=== PATIENT | female | born 1940 | race Caucasian/White ===

== ENCOUNTER 2019-10-03 18:21 | Inpatient (IN) | payer MEDICARE, SELFPAY ==
[2019-10-03 18:37] VITALS: BP 162/96; PULSE 84; RESP 22; TEMP 36.5; O2SAT 99; BMI 23.3
--- NOTE | 2019-10-03 18:56 | XRR_ITS ---
PROCEDURE INFORMATION: Exam: XR Chest, 1 View Exam date and time: 10/03/2019 6:57 PM Age: 79 years old Clinical indication: Right-sided chest pain; Additional info: Admission TECHNIQUE: Imaging protocol: XR of the chest Views: 1 view. COMPARISON: No relevant prior studies available. FINDINGS: Increased interstitial markings are noted within the lung bases. There is no consolidation. There is no pleural effusion or pneumothorax. There is cardiomegaly. There is atherosclerotic change of the aorta. XR/XR chest 1V portable [id number] IMPRESSION: 1. Increased interstitial markings within the lung bases. 2. Mild cardiomegaly.
--- NOTE | 2019-10-03 18:56 | ECG_ITS ---
Measurements Intervals [place] Rate: 81 P: 79 RI: 146 QRS: 13 QRSD: 86 T: 73 QT: 379 QTc: 442 SINUS RHYTHM No previous ECG available for comparison Electronically Signed On 10-04-2019 11:27:43 AERIAL INSTALLER by Tesfaye Morse M.D. [email or web address]
--- NOTE | 2019-10-03 19:04 | USR_ITS ---
PROCEDURE INFORMATION: Exam: US Abdomen Limited, Right Upper Quadrant Exam date and time: 10/03/2019 7:45 PM Age: 79 years old Clinical indication: Abdominal pain; Acute TECHNIQUE: Imaging protocol: Real-time ultrasound of the abdomen with image documentation. Examination was focused on the right upper quadrant. COMPARISON: No relevant prior studies available. FINDINGS: Real-time sonography of the right upper quadrant was performed. The pancreas appears normal. The liver is homogeneous in echotexture. There is no liver mass. There is no intrahepatic biliary dilatation. There is hepatopedal flow within the portal vein. The common bile duct measured 3 mm. No gallstones are seen within the gallbladder. There is no thickening of the gallbladder wall. There is no pericholecystic fluid. The patient was not tender over the gallbladder. Right kidney appeared normal. No free fluid is identified. US/US abdomen limited [id number] IMPRESSION: Unremarkable right upper quadrant ultrasound.
--- NOTE | 2019-10-03 19:13 | ED_ITS ---
Documented by User: ESTELLA Black 10/03/19 21:17 HPI - General Adult General: Chief complaint: Abdominal Pain Stated complaint: abd pain Time Seen by Provider: 10/03/19 18:56 History of Present Illness: HPI narrative: Patient complains but nausea all day long with some abdominal pain the last hour or 2 abdominal pains worsen. Planes about pain in lower left and right abdomen. MD complaint: abdominal pain Onset (ago): day(s) Location: abdomen Radiation: non-radiation Severity: severe Severity scale (1-10): 10 Quality: sharp Pain Consistency: constant Relieving factors: none Associated symptoms: Reports nausea and vomiting; Deny chest pain, dyspnea, headache(s) or rash Review of Systems Const: Denies: fever, chills or body aches Eyes: Denies: change in vision or blurry vision ENMT: Reports: throat pain; Denies: nasal congestion Card: Denies: chest pain or shortness of breath on exertion Resp: Denies: shortness of breath, productive cough or non-productive cough GI: Reports: abdominal pain, nausea and vomiting Musc: Denies: extremity pain Skin/Breast: Denies: rash Neuro: Denies: headache Psych: Denies: anxiety or depression Guru/Lymph: Denies: easy bruising PFSH ED PFSH: Statuses (acute, chronic, etc) shown below reflect problem list status as previously entered and may not be historically accurate Social History Smoking and tobacco status: never smoked Physical Exam Const: COMMON NORMALS: average body habitus and oriented x3 GENERAL APPEARANCE: in distress HENMT: COMMON NORMALS: normocephalic HEAD & SCALP: normal to inspection and normocephalic FACE & SINUS: normal facial exam Eye: COMMON NORMALS: conjunctivae normal GENERAL EYE: normal appearance of both eyes CONJUNCTIVA: Yes conjunctivae normal Neck/C-Spine: COMMON NORMALS: no JVD Chest: COMMONS NORMALS: inspection of chest normal Resp: COMMON NORMALS: normal respiratory effort and clear to auscultation bilaterally AUSCULTATION: clear to auscultation bilaterally Cardio: COMMON NORMALS: no JVD, regular rate and regular rhythm RATE: re gular rate RHYTHM: regular rhythm GI: COMMON NORMALS: normal to inspection, nondistended, normoactive bowel sounds AUSCULTATION: Yes hypoactive bowel sounds PALPATION: Yes tender Details: LLQ and RLQ PERCUSSION: normal to percussion Extremity: COMMON NORMALS: normal to inspection and full ROM Neuro: COMMON NORMALS: oriented x3 Course Vital Signs: Vital signs: Vital Signs Temperature 97.7 F 10/03/19 18:37 Pulse Rate 84 10/03/19 18:37 Respiratory Rate 18 10/03/19 20:12 Blood Pressure 162/96 10/03/19 18:37 Pulse Oximetry 96 10/03/19 20:12 MDM - General Adult MDM Narrative: Medical decision making narrative: I spoke with Dr. Mortensen who will accept patient to place admission orders and speak to the hospitalist CAT scan reviewed Lab Data: Labs: Lab Results 10/03/19 10/03/19 10/03/19 Range/Units 19:09 19:09 19:09 WBC 5.2 (4.0-10.0) 10^3/ uL RBC 4.56 (4.1-5.3) 10^6/u L Hgb 11.8 (11.5-15.3) g/dL Hct 38.5 (37.0-47.0) % MCV 84.4 (81-99) fL MCH 25.9 L (28.0-34.0) pg MCHC 30.6 (30.0-36.0) g/dL RDW 14.4 (12.1-15.1) % Plt Count 306 (130-400) 10^3/c mm MPV 9.4 (7.4-10.4) fL Neut % (Auto) 62.6 % Lymph % (Auto) 28.6 % Haskell % (Auto) 7.6 % Eos % (Auto) 0.6 % Baso % (Auto) 0.4 % Neut # (Auto) 3.3 (1.8-7.7) 10^3/u L Lymph # (Auto) 1.5 (0.8-4.8) 10^3/u L Haskell # (Auto) 0.4 (0.2-0.9) 10^3/u L Eos # (Auto) 0.0 (0.0-0.8) 10^3/u L Baso # (Auto) 0.0 (0.0-0.1) 10^3/u L Nucleated RBC % (a uto) 0 % Nucleated RBCs # 0.0 /100WBC Sodium 127 L (136-145) mmol/L Potassium 4.2 (3.5-5.1) mmol/L Chloride 90 L (98-107) mmol/L Carbon Dioxide 20 L (22-29) mmol/L Anion Gap 21.2 H (5-19) BUN 12 (8-23) mg/dL Creatinine 0.7 (0.5-0.9) mg/dL Glucose 165 H (74-106) mg/dL Lactic Acid 3.5 H (0.5-2.2) mmol/L Calcium 9.9 (8.8-10.2) mg/Dl Total Bilirubin 0.3 (0.15-1.2) mg/dL AST 24 (0-32) U/L ALT 13 (0-33) U/L Alkaline Phosphata se 65 (35-105) IU/L Total Protein 7.6 (6.6-8.7) g/dL Albumin 4.0 (3.5-5.2) g/dL Globulin 3.6 (1.3-4.6) g/dL Lipase 46 (13-60) U/L Urine Color (Yellow) Urine Appearance (CLEAR) Urine pH (5-7) Ur Specific Gravit y (1.005-1.030) Urine Protein (Negative) Urine Glucose (UA) (Normal) Urine Ketones (Negative) Urine Occult Blood (Negative) Urine Nitrate (Negative) Urine Bilirubin (NEGATIVE) Prot Sulfosalicyli c Acd Urine Urobilinogen (Negative) mg/dL Ur Leukocyte Heather ase (Negative) 10/03/19 Range/Units 20:49 WBC (4.0-10.0) 10^3/ uL RBC (4.1-5.3) 10^6/u L Hgb (11.5-15.3) g/dL Hct (37.0-47.0) % MCV (81-99) fL MCH (28.0-34.0) pg MCHC (30.0-36.0) g/dL RDW (12.1-15.1) % Plt Count (130-400) 10^3/c mm MPV (7.4-10.4) fL Neut % (Auto) % Lymph % (Auto) % Haskell % (Auto) % Eos % (Auto) % Baso % (Auto) % Neut # (Auto) (1.8-7.7) 10^3/u L Lymph # (Auto) (0.8-4.8) 10^3/u L Haskell # (Auto) (0.2-0.9) 10^3/u L Eos # (Auto) (0.0-0.8) 10^3/u L Baso # (Auto) (0.0-0.1) 10^3/u L Nucleated RBC % (a uto) % Nucleated RBCs # /100WBC Sodium (136-145) mmol/L Potassium (3.5-5.1) mmol/L Chloride (98-107) mmol/L Carbon Dioxide (22-29) mmol/L Anion Gap (5-19) BUN (8-23) mg/dL Creatinine (0.5-0.9) mg/dL Glucose (74-106) mg/dL Lactic Acid (0.5-2.2) mmol/L Calcium (8.8-10.2) mg/Dl Total Bilirubin (0.15-1.2) mg/dL AST (0-32) U/L ALT (0-33) U/L Alkaline Phosphata se (35-105) IU/L Total Protein (6.6-8.7) g/dL Albumin (3.5-5.2) g/dL Globulin (1.3-4.6) g/dL Lipase (13-60) U/L Urine Color Straw (Yellow) Urine Appearance Clear (CLEAR) Urine pH 9 H (5-7) Ur Specific Gravit y 1.015 (1.005-1.030) Urine Protein Neg (Negative) Urine Glucose (UA) Norm (Normal) Urine Ketones Negative (Negative) Urine Occult Blood Neg (Negative) Urine Nitrate Negative (Negative) Urine Bilirubin Neg (NEGATIVE) Prot Sulfosalicyli c Acd Negative Urine Urobilinogen Norm (Negative) mg/dL Ur Leukocyte Heahter ase Negative (Negative) Discharge Plan Discharge Patient Disposition: Admitted As Inpatient Clinical Impression: Lactic acidosis, Enteritis, Acute hyponatremia Condition: Stable Referrals: Devan Craven MD [Primary Care Provider] - Discharge Diet: Clear Liquid Coding Level of Care Code ED Air Conditioning Coil Assembler for Chg Fwd Documented by User: Ann-Mariepeace Cates DO 10/03/19 21:58 HPI - General Adult General: Chief complaint: Abdominal Pain Stated complaint: abd pain Time Seen by Provider: 10/03/19 18:56 PFSH ED PFSH: Statuses (acute, chronic, etc) shown below reflect problem list status as previously entered and may not be historically accurate Social History Smoking and tobacco status: never smoked Course Vital Signs: Vital signs: Vital Signs Temperature 97.7 F 10/03/19 18:37 Pulse Rate 84 10/03/19 18:37 Respiratory Rate 18 10/03/19 20:12 Blood Pressure 162/96 10/03/19 18:37 Pulse Oximetry 96 10/03/19 20:12 MDM - General Adult MDM Narrative: Medical decision making narrative: patient will be admitted for lactic acidosis and enteritis and hyponatremia Lab Data: Attestation: I reviewed the patient's lab results. Labs: Lab Results 10/03/19 10/03/19 10/03/19 Range/Units 19:09 19:09 19:09 WBC 5.2 (4.0-10.0) 10^3/ uL RBC 4.56 (4.1-5.3) 10^6/u L Hgb 11.8 (11.5-15.3) g/dL Hct 38.5 (37.0-47.0) % MCV 84.4 (81-99) fL MCH 25.9 L (28.0-34.0) pg MCHC 30.6 (30.0-36.0) g/dL RDW 14.4 (12.1-15.1) % Plt Count 306 (130-400) 10^3/c mm MPV 9.4 (7.4-10.4) fL Neut % (Auto) 62.6 % Lymph % (Auto) 28.6 % Haskell % (Auto) 7.6 % Eos % (Auto) 0.6 % Baso % (Auto) 0.4 % Neut # (Auto) 3.3 (1.8-7.7) 10^3/u L Lymph # (Auto) 1.5 (0.8-4.8) 10^3/u L Haskell # (Auto) 0.4 (0.2-0.9) 10^3/u L Eos # (Auto) 0.0 (0.0-0.8) 10^3/u L Baso # (Auto) 0.0 (0.0-0.1) 10^3/u L Nucleated RBC % (a uto) 0 % Nucleated RBCs # 0.0 /100WBC Sodium 127 L (136-145) mmol/L Potassium 4.2 (3.5-5.1) mmol/L Chloride 90 L (98-107) mmol/L Carbon Dioxide 20 L (22-29) mmol/L Anion Gap 21.2 H (5-19) BUN 12 (8-23) mg/dL Creatinine 0.7 (0.5-0.9) mg/dL Glucose 165 H (74-106) mg/dL Lactic Acid 3.5 H (0.5-2.2) mmol/L Calcium 9.9 (8.8-10.2) mg/Dl Total Bilirubin 0.3 (0.15-1.2) mg/dL AST 24 (0-32) U/L ALT 13 (0-33) U/L Alkaline Phosphata se 65 (35-105) IU/L Total Protein 7.6 (6.6-8.7) g/dL Albumin 4.0 (3.5-5.2) g/dL Globulin 3.6 (1.3-4.6) g/dL Lipase 46 (13-60) U/L Urine Color (Yellow) Urine Appearance (CLEAR) Urine pH (5-7) Ur Specific Gravit y (1.005-1.030) Urine Protein (Negative) Urine Glucose (UA) (Normal) Urine Ketones (Negative) Urine Occult Blood (Negative) Urine Nitrate (Negative) Urine Bilirubin (NEGATIVE) Prot Sulfosalicyli c Acd Urine Urobilinogen (Negative) mg/dL Ur Leukocyte Heather ase (Negative) 10/03/19 Range/Units 20:49 WBC (4.0-10.0) 10^3/ uL RBC (4.1-5.3) 10^6/u L Hgb (11.5-15.3) g/dL Hct (37.0-47.0) % MCV (81-99) fL MCH (28.0-34.0) pg MCHC (30.0-36.0) g/dL RDW (12.1-15.1) % Plt Count (130-400) 10^3/c mm MPV (7.4-10.4) fL Neut % (Auto) % Lymph % (Auto) % Haskell % (Auto) % Eos % (Auto) % Baso % (Auto) % Neut # (Auto) (1.8-7.7) 10^3/u L Lymph # (Auto) (0.8-4.8) 10^3/u L Haskell # (Auto) (0.2-0.9) 10^3/u L Eos # (Auto) (0.0-0.8) 10^3/u L Baso # (Auto) (0.0-0.1) 10^3/u L Nucleated RBC % (a uto) % Nucleated RBCs # /100WBC Sodium (136-145) mmol/L Potassium (3.5-5.1) mmol/L Chloride (98-107) mmol/L Carbon Dioxide (22-29) mmol/L Anion Gap (5-19) BUN (8-23) mg/dL Creatinine (0.5-0.9) mg/dL Glucose (74-106) mg/dL Lactic Acid (0.5-2.2) mmol/L Calcium (8.8-10.2) mg/Dl Total Bilirubin (0.15-1.2) mg/dL AST (0-32) U/L ALT (0-33) U/L Alkaline Phosphata se (35-105) IU/L Total Protein (6.6-8.7) g/dL Albumin (3.5-5.2) g/dL Globulin (1.3-4.6) g/dL Lipase (13-60) U/L Urine Color Straw (Yellow) Urine Appearance Clear (CLEAR) Urine pH 9 H (5-7) Ur Specific Gravit y 1.015 (1.005-1.030) Urine Protein Neg (Negative) Urine Glucose (UA) Norm (Normal) Urine Ketones Negative (Negative) Urine Occult Blood Neg (Negative) Urine Nitrate Negative (Negative) Urine Bilirubin Neg (NEGATIVE) Prot Sulfosalicyli c Acd Negative Urine Urobilinogen Norm (Negative) mg/dL Ur Leukocyte Heather ase Negative (Negative) Discharge Plan Discharge Patient Disposition: Admitted As Inpatient Clinical Impression: Lactic acidosis, Enteritis, Acute hyponatremia Condition: Stable Referrals: Devan Craven MD [Primary Care Provider] - Discharge Diet: Clear Liquid Coding Level of Care Code ED Air Conditioning Coil Assembler for Chg Parvin
[2019-10-03 19:15] VITALS: RESP 18; O2SAT 100
[2019-10-03] MEDS: morphine 4 mg/mL SDV 1 mL 2 MG IVP ×2 (19:15→20:12)
[2019-10-03] MEDS: ondansetron 2 mg/ML SDV 2 mL 4 MG IVP ×2 (19:16→20:13)
[2019-10-03 19:22] LABS: Basophils % 0.4 %; Eosinophils % 0.6 %; Hematocrit 38.5 % (37.0-47.0); Hemoglobin 11.8 g/dL (11.5-15.3); Lymphocytes # 1.5 10^3/uL (0.8-4.8); Lymphocytes % 28.6 %; Mean Corpuscular HGB Conc 30.6 g/dL (30.0-36.0); Mean Corpuscular Hemoglobin 25.9 pg (28.0-34.0); Mean Corpuscular Volume 84.4 fL (81-99); Mean Platelet Volume 9.4 fL (7.4-10.4); Monocytes # 0.4 10^3/uL (0.2-0.9); Monocytes % 7.6 %; Neutrophils # 3.3 10^3/uL (1.8-7.7); Neutrophils % 62.6 %; Nucleated Red Blood Cells % 0 %; Platelet Count 306 10^3/cmm (130-400); Red Blood Count 4.56 10^6/uL (4.1-5.3); Red Cell Distribution Width 14.4 % (12.1-15.1); White Blood Count 5.2 10^3/uL (4.0-10.0)
[2019-10-03 19:36] LABS: Lactic Sepsis W/Reflex 3.5 mmol/L (0.5-2.2)
[2019-10-03 19:49] LABS: Alanine Aminotransferase 13 U/L (0-33); Alkaline Phosphatase 65 IU/L (35-105); Anion Gap 21.2 (5-19); Aspartate Amino Transferase 24 U/L (0-32); Blood Urea Nitrogen 12 mg/dL (8-23); Calcium 9.9 mg/Dl (8.8-10.2); Carbon Dioxide 20 mmol/L (22-29); Chloride 90 mmol/L (98-107); Globulin 3.6 g/dL (1.3-4.6); Glucose 165 mg/dL (74-106); Lipase 46 U/L (13-60); Potassium 4.2 mmol/L (3.5-5.1); Sodium 127 mmol/L (136-145); Total Bilirubin 0.3 mg/dL (0.15-1.2); Total Protein 7.6 g/dL (6.6-8.7)
--- NOTE | 2019-10-03 20:03 | CTR_ITS ---
PROCEDURE INFORMATION: Exam: CT Abdomen And Pelvis With Contrast Exam date and time: 10/03/2019 8:18 PM Age: 79 years old Clinical indication: Abdominal pain; Acute; Prior surgery; Surgery date: 6+ months; Surgery type: Hyst and bi-lat hips TECHNIQUE: Imaging protocol: Computed tomography of the abdomen and pelvis with intravenous contrast. Total DLP: 756.64 mGy-cm Radiation optimization: All CT scans at this facility use at least one of these dose optimization techniques: automated exposure control; mA and/or kV adjustment per patient size (includes targeted exams where dose is matched to clinical indication); or iterative reconstruction. Contrast material: OMNI 300; Contrast volume: 95 ml; Contrast route: IV; COMPARISON: US abdomen limited [id number] 10/03/2019 7:25 PM FINDINGS: There is scarring within the lung bases. There is mild cardiomegaly. There is scoliosis and degenerative changes of the spine. The patient is status post bilateral hip replacements causing significant streak artifact within pelvis. There is a small cyst within the right lobe of the liver. It measures 9 mm. There is no suspicious liver mass. There is no intrahepatic biliary dilatation. No gallstones are seen within the gallbladder. The pancreas is unremarkable. The spleen is unremarkable. There is no adrenal mass. Tiny subcentimeter cysts are seen within kidneys. No renal calculi or hydronephrosis is seen. The aorta is normal in caliber. The IVC is normal in caliber. There is no retroperitoneal adenopathy. There is no mesenteric adenopathy. There is a hiatal hernia. There is no gastric wall thickening. The proximal small bowel appears normal. There is small bowel distention involving the terminal ileum with some wall thickening and some mild stranding of the fat. Findings would suggest an enteritis versus a mild partial small bowel obstruction. No definite transition zone is seen. There does appear to be extensive feces involving the cecum. The remainder of the colonic structures demonstrate some scattered diverticuli. Within the pelvis: The appendix is not visualized. The bladder is obscured by artifact. The patient is status post hysterectomy. There are no adnexal masses. There is no free fluid within the pelvis. There is no inguinal adenopathy. There is no pelvic adenopathy. There is sigmoid diverticulosis. CT/CT abdomen pelvis w con* [id number] IMPRESSION: 1. Distal small bowel distention with fluid and some mild wall thickening and stranding of the mesenteric fat. This may represent an enteritis. It could represent a partial small bowel obstruction. Please note the appendix is not visualized. 2. There is noted to be extensive feces within the cecum. 3. Other incidental findings as described. Radiation Dose CTDIVOL = (mGy): DLP = 756.64 (mGy-cm)
[2019-10-03 20:12] VITALS: RESP 18; O2SAT 96
[2019-10-03] MEDS: iohexol 300 mg/mL 100 mL Btl IV (20:31)
[2019-10-03 20:53] LABS: Add Urine Microscopic? NO
[2019-10-03 20:59] LABS: Reflex Lactate Order Y
[2019-10-03 21:04] LABS: Urine Appearance Clear (CLEAR); Urine Color Straw (Yellow)
[2019-10-03 21:05] LABS: Bilirubin Urine Neg (NEGATIVE); Blood Urine Neg (Negative); Glucose Urine UA Norm (Normal); Ketones Urine Negative (Negative); Leukocyte Esterase Urine Negative (Negative); Nitrate Urine Negative (Negative); Protein Urine Neg (Negative); Specific Gravity, Urine 1.015 (1.005-1.030); Sulfosalicylic Acid Urine Negative; Urobilinogen Urine Norm (Negative); pH Urine 9 (5-7)
[2019-10-03 22:24] VITALS: RESP 18; O2SAT 98
[2019-10-03] MEDS: HYDROmorphone 1 mg/mL INJ 1 mL IVP (22:24)
[2019-10-03 22:59] LABS: Lactic Acid level (Lactate) 1.8 mmol/L (0.5-2.2)
[2019-10-03] MEDS: sodium chloride 0.9% 1,000 ML 100 ML IV (22:59)
[2019-10-04] VITALS (10 sets, daily range): BP systolic 109–173; BP diastolic 58–100; PULSE 63–102; RESP 16–18; TEMP 36.7–37.2; O2SAT 94–100
--- NOTE | 2019-10-04 01:12 | P.HP_ITS ---
Providers/Chief Complaint Admitting Physician: Carmen Perrin MD Primary Care Provider: Devan Craven MD Chief Complaint: CONSTIPATION, ENTERITIS History of Present Illness Emerald Subramanian is a 79 year old female with PMHx of HTN, Hyperlipidemia; presents from home accompanied by family for evaluation of worsening abdominal pain, nausea for approximately 1 day. She describes it as worse in the upper abdominal area, cramping in quality, with some radiation upward toward the chest area and now seems to be more diffuse. She had a bowel movement earlier this morning which was normal for her, no blood noted. She has had nausea but no vomiting and a slightly diminished appetite. She states she has never had this kind of pain in the past. She lives independently but has family close by. She denies any recent exposure to any unusual food or drink, fever/chills, changes in her urination. She is quite uncomfortable during my evaluation in the ER, clutching at her upper abdominal area. Sister is at bedside. She is slightly hypertensive, rest of her vital signs are stable. Work-up in the ER indicates a normal CBC, sodium of 127, normal renal function, blood sugar of 165, lactic acidosis with a level of 3.5, negative urinalysis, normal lipase. Chest x-ray is reported as increased interstitial markings. Abdominal ultrasound is negative. CT of the abdomen and pelvis shows distal small bowel fluid distention and fecal retention within the cecum. I explained the findings to the patient including need for bowel rest, IV fluid hydration and antibiotic treatment which she is agreeable to. Due to need for adequate pain control, IV fluid hydration, bowel rest and antibiotic treatment she has been admitted for further care. Review of Systems Const: Reports: change in appetite (decreased appetite) and fatigue; Denies: fever or chills Eyes: Denies: change in vision ENMT: Reports: dry mouth Card: Denies: chest pain, swelling of feet/ankles or lightheadedness Resp: Denies: shortness of breath GI: Reports: abdominal pain (Upper abdominal area) and nausea; Denies: vomiting, vomiting blood, constipation, change in bowel habits or blood in stool : Denies: difficulty urinating, painful urination, urinary frequency or blood in urine Musc: Denies: back pain Skin/Breast: Denies: rash Neuro: Denies: numbness in extremities, weakness in extremities or frequent falls Psych: Denies: anxiety Medications/Allergies Allergies Allergy/AdvReac Type Severity Reaction Status Date / Time amoxicillin Allergy ALGY-Rash Verified 10/03/19 18:47 prednisone Allergy ADR-Diarrhe Verified 10/03/19 18:47 a Sulfa (Sulfonamide Allergy ALGY-Redness Verified 10/03/19 18:47 Antibiotics) of Skin Additional Medication Information Additional Medication Information: -pending med rec PFSH Acute PFSH: Statuses (acute, chronic, etc) shown below reflect problem list status as previously entered and may not be historically accurate Medical History (Updated 10/04/19 @ 03:23 by Carmen Perrin MD) Hyperlipidemia (Acute) Hypertension (Acute) Surgical History (Updated 10/04/19 @ 03:20 by Carmen Perrin MD) S/P hip replacement (Acute) bilateral Family History (Updated 10/04/19 @ 03:20 by Carmen Perrin MD) Other CAD (coronary artery disease) Social History (Updated 10/04/19 @ 03:20 by Carmen Perrin MD) Smoking and tobacco status: never smoked Alcohol intake: never Substance/Drug Use: never Lives independently: Yes Housing: House Vitals/I&O/Wt Last Vital Signs Temp 97.7 F 10/03/19 18:37 Pulse 84 10/03/19 18:37 Resp 18 10/03/19 22:24 BP 162/96 10/03/19 18:37 Pulse Ox 98 10/03/19 22:24 Weight last 48 hrs Weight 63.503 kg Physical Exam Const: COMMON NORMALS: no apparent distress and oriented x3 GENERAL APPEARANCE: cooperative, in distress (Mild distress due to pain) and frail appearing; not comfortable NUTRITIONAL APPEARANCE: thin ORIENTATION/CONSCIOUSNESS: Yes awake HENMT: COMMON NORMALS: normocephalic, head/scalp atraumatic and hearing grossly normal bilaterally HEAD & SCALP: normocephalic and atraumatic MOUTH: moist mucous membranes abnormal Details: parched Eye: COMMON NORMALS: PERRL, EOMs intact bilaterally and conjunctivae normal CONJUNCTIVA: Yes conjunctivae normal PUPIL: Yes PERRL Neck/C-Spine: COMMON NORMALS: full ROM GENERAL: Yes normal visual inspection and Yes trachea midline Resp: COMMON NORMALS: normal respiratory effort, no retractions, no use of accessory muscles and clear to auscultation bilaterally EFFORT & INSPECTION: Yes able to speak in complete sentences, Yes symmetric chest movement and No tachypneic AUSCULTATION: clear to auscultation bilaterally Cardio: COMMON NORMALS: regular rate, regular rhythm, S1 normal heart sound, S2 normal heart sound and no murmurs RATE: regular rate RHYTHM: regular rhythm HEART SOUNDS: S1 normal and S2 normal GI: COMMON NORMALS: normal to inspection, nondistended, normoactive bowel sounds and soft to palpation PALPATION: Yes soft, Yes tender (Diffuse, worse in right upper and left upper quadrants), No guarding, No rigid and No rebound tenderness present Extremity: COMMON NORMALS: normal to inspection, full ROM and no clubbing, cyanosis or edema; negative for no pedal edema Neuro: COMMON NORMALS: oriented x3, moves all extremities, no focal motor defi cits and no sensory deficits noted Psych: COMMON NORMALS: mental status grossly normal, thought process normal, cooperative, affect normal and speech normal SPEECH: Yes normal speech THOUGHT PROCESS: normal thought process Skin: COMMON NORMALS: no rashes or lesions noted, no jaundice, no petechiae and no mottling GENERAL SKIN EXAM: no rashes or lesions noted Data : 10/03/19 19:09 10/03/19 19:09 A&P Assessment and plan (1) Enteritis: -Noted evidence of enteritis on CT scan -Bowel rest, antiemetics and pain control as needed, IV fluid hydration -No leukocytosis, afebrile -Noted lactic acidosis likely secondary to dehydration; repeat lactic acid in a.m. Status: Acute Code(s): K52.9 - Noninfective gastroenteritis and colitis, unspecified (2) Lactic acidosis: -As noted above Status: Acute Code(s): E87.2 - Acidosis (3) Constipation: -Noted evidence of fecal retention in the cecum -Start on bowel regimen -Placed on bowel rest Status: Acute Qualifiers: Constipation type: other constipation type Qualified Code(s): K59.09 - Other constipation Code(s): K59.00 - Constipation, unspecified (4) Hypertension: -Monitor vital signs -Resume oral antihypertensives once med rec is done and PO appropriate Status: Acute Qualifiers: Hypertension type: essential hypertension Qualified Code(s): I10 - Essential (primary) hypertension Code(s): I10 - Essential (primary) hypertension (5) Hyperlipidemia: -Resume statin once p.o. appropriate Status: Acute Qualifiers: Hyperlipidemia type: unspecified Qualified Code(s): E78.5 - Hyperlipidemia, unspecified Code(s): E78.5 - Hyperlipidemia, unspecified Additional A&P Information -Advanced age -GI ppx with PPI -DVT ppx with Lovenox -fall precautions -Dispo: home -Code status: FULL code Attestations Medical Necessity Statement*: Emerald Subramanian's hospital stay will require greater than 2 midnights for management of enteritis and constipation, with evidence of dehydration and lactic acidosis requiring IV fluid hydration, bowel rest and IV antibiotics. Time Spent in Patient Care: Greater than 35 minutes (>than 50% of time spent in counselling and/or direct pt care on unit) . Coding Level of Care Code Acute Retail Selling Specialist for Chg Fwd Diagnoses Enteritis K52.9 Lactic acidosis E87.2 Constipation K59.09 Constipation type: other constipation type Hypertension I10 Hypertension type: essential hypertension Hyperlipidemia E78.5 Hyperlipidemia type: unspecified
[2019-10-04] MEDS: morphine 4 mg/mL SDV 1 mL 2 MG IVP ×2 (02:12→08:06)
[2019-10-04] MEDS: piperacillin-tazobactam 3.375 GM in sodium chloride 0.9% (plus) 50 ML IV ×2 (03:18→14:24)
[2019-10-04] MEDS: enoxaparin 40 mg/0.4 mL Syringe SUBCUT (03:18)
[2019-10-04] MEDS: magnesium citrate Btl 296 mL 150 ML PO (03:19)
[2019-10-04 06:14] LABS: Hematocrit 40.1 % (37.0-47.0); Hemoglobin 12.6 g/dL (11.5-15.3); Lymphocytes # 0.3 10^3/uL (0.8-4.8); Lymphocytes % 4.3 %; Mean Corpuscular HGB Conc 31.4 g/dL (30.0-36.0); Mean Corpuscular Hemoglobin 25.9 pg (28.0-34.0); Mean Corpuscular Volume 82.3 fL (81-99); Mean Platelet Volume 9.6 fL (7.4-10.4); Monocytes # 0.2 10^3/uL (0.2-0.9); Monocytes % 3.4 %; Nucleated Red Blood Cells % 0 %; Platelet Count 322 10^3/cmm (130-400); Red Blood Count 4.87 10^6/uL (4.1-5.3); Red Cell Distribution Width 14.3 % (12.1-15.1); White Blood Count 6.6 10^3/uL (4.0-10.0)
[2019-10-04 06:32] LABS: Anion Gap 16.8 (5-19); Blood Urea Nitrogen 12 mg/dL (8-23); Calcium 9.4 mg/Dl (8.8-10.2); Carbon Dioxide 25 mmol/L (22-29); Chloride 92 mmol/L (98-107); Glucose 206 mg/dL (74-106); Lactic Acid 1.9 mmol/L (0.5-2.2); Potassium 3.8 mmol/L (3.5-5.1); Sodium 130 mmol/L (136-145)
[2019-10-04] MEDS: pantoprazole 40 mg SDV IVP (08:06)
[2019-10-04] MEDS: sodium chloride 0.9% 1,000 ML 100 ML IV ×2 (08:11→18:02)
--- NOTE | 2019-10-04 09:00 | PC.NURSE ---
Pt resting in bed with eyes closed. Resp even and unlabored. 0 s/s of distress noted. Call light in reach
--- NOTE | 2019-10-04 14:22 | PC.NURSE ---
Dr Flores in to assess and discuss plan of care with patient and family
[2019-10-04] MEDS: lisinopril 20 mg Tablet PO (14:24)
[2019-10-04] MEDS: ondansetron 2 mg/ML SDV 2 mL 4 MG IVP (16:51)
--- NOTE | 2019-10-04 17:00 | PC.NURSE ---
Approx 60 ml of thick light brown/yellow emesis noted. Pt reports she just spit it up . PRN zofran given at this time
--- NOTE | 2019-10-04 17:01 | XRR_ITS ---
PROCEDURE INFORMATION: Exam: XR Abdomen, 1 View Exam date and time: 10/04/2019 7:39 PM Age: 79 years old Clinical indication: Other: Possible small bowel obstruction; Additional info: R/O sbo TECHNIQUE: Imaging protocol: XR of the abdomen. Views: Frontal supine view of the abdomen. 1 View. COMPARISON: None available FINDINGS: A large amount of stool is demonstrated. There is mild to moderate dilatation of colon. Cannot assess for free air on this supine view. Prominent arterial calcifications are demonstrated. Partly demonstrated is bilateral hip arthroplasty. XR/XR abdomen 1V* [id number] IMPRESSION: A large amount of stool is demonstrated. There is mild to moderate dilatation of colon.
--- NOTE | 2019-10-04 17:02 | PM.PN ---
Subjective Subjective: Interval history: Pain persisting but improved over yesterday. Patient does not currently passing any flatus. She has not had a bowel movement. She reports nausea but no vomiting. Abdominal appears to be distended over her baseline. Repeat lactate improved at 1.9. Medications: Reviewed: Yes Vitals/I&O/Wt Last Vital Signs Temp 98.2 F 10/04/19 14:55 Pulse 100 10/04/19 14:55 Resp 18 10/04/19 14:55 BP 167/82 10/04/19 14:55 Pulse Ox 97 10/04/19 14:55 10/04/19 10/04/19 10/04/19 06:59 14:59 22:59 Intake Total 50 / 50 Output Total 200 / 200 Balance -200 / -200 50 / 50 Weight last 48 hrs Weight 65.589 kg Weight 63.503 kg Physical Exam Narrative: EXAM NARRATIVE: GEN: Awake, alert and oriented, no acute distress CVS: S1S2 N RS: CTA B/L Abd: Soft, lower abdomen appears distended. Mild tenderness to palpation in the right lower quadrant. Bowel sounds not heard. INSTRUCTIONAL INTERVENTIONIST: no focal neuro deficits Data : 10/04/19 06:00 10/04/19 06:00 A&P Assessment and plan (1) Enteritis: -Noted evidence of enteritis on CT scan -Bowel rest, antiemetics and pain control as needed, IV fluid hydration -No leukocytosis, afebrile -Continue Zosyn empirically. -X-ray abdomen rule out SBO. Status: Acute Code(s): K52.9 - Noninfective gastroenteritis and colitis, unspecified (2) Lactic acidosis: Now resolved Status: Acute Code(s): E87.2 - Acidosis (3) Constipation: -Noted evidence of fecal retention in the cecum -Start on bowel regimen -Received enema overnight but has not had a bowel movement yet -If no evidence of SBO on x-ray abdomen today we will repeat another enema. Status: Acute Qualifiers: Constipation type: other constipation type Qualified Code(s): K59.09 - Other constipation Code(s): K59.00 - Constipation, unspecified (4) Hypertension: -Monitor vital signs -We will use metoprolol IV as needed for blood pressure control. Status: Acute Qualifiers: Hypertension type: essential hypertension Qualified Code(s): I10 - Essential (primary) hypertension Code(s): I10 - Essential (primary) hypertension (5) Hyperlipidemia: -Resume statin once p.o. appropriate Status: Acute Qualifiers: Hyperlipidemia type: unspecified Qualified Code(s): E78.5 - Hyperlipidemia, unspecified Code(s): E78.5 - Hyperlipidemia, unspecified Additional A&P Information -Advanced age -GI ppx with PPI -DVT ppx with Lovenox -fall precautions -Dispo: home -Code status: FULL code Attestations Medical Necessity Statement*: Admitted for enteritis acidosis, currently on management with bowel rest and antibiotics. Coding Level of Care Code Acute Classification Counselor for [facility] Fwd Diagnoses Enteritis K52.9 Lactic acidosis E87.2 Constipation K59.09 Constipation type: other constipation type Hypertension I10 Hypertension type: essential hypertension Hyperlipidemia E78.5 Hyperlipidemia type: unspecified
[2019-10-04 23:49] LABS: Rapid Strep A Test Negative (Negative)
[2019-10-05] MEDS: piperacillin-tazobactam 3.375 GM in sodium chloride 0.9% (plus) 50 ML IV ×3 (01:58→21:19)
[2019-10-05] MEDS: enoxaparin 40 mg/0.4 mL Syringe SUBCUT ×2 (01:58→21:20)
[2019-10-05 03:29] VITALS: BP 131/76; PULSE 98; RESP 18; TEMP 36.8; O2SAT 95
[2019-10-05] MEDS: sodium chloride 0.9% 1,000 ML 100 ML IV ×2 (03:37→18:41)
[2019-10-05 06:24] LABS: Basophils % 0.1 %; Hematocrit 38.2 % (37.0-47.0); Hemoglobin 11.7 g/dL (11.5-15.3); Lymphocytes # 0.4 10^3/uL (0.8-4.8); Lymphocytes % 3.6 %; Mean Corpuscular HGB Conc 30.6 g/dL (30.0-36.0); Mean Corpuscular Volume 84.9 fL (81-99); Mean Platelet Volume 10.1 fL (7.4-10.4); Monocytes # 0.7 10^3/uL (0.2-0.9); Monocytes % 6.5 %; Neutrophils # 9.2 10^3/uL (1.8-7.7); Neutrophils % 89.6 %; Nucleated Red Blood Cells % 0 %; Platelet Count 285 10^3/cmm (130-400); Red Cell Distribution Width 14.6 % (12.1-15.1); White Blood Count 10.3 10^3/uL (4.0-10.0)
[2019-10-05 06:47] LABS: Alanine Aminotransferase 10 U/L (0-33); Albumin Level 2.9 g/dL (3.5-5.2); Alkaline Phosphatase 47 IU/L (35-105); Aspartate Amino Transferase 20 U/L (0-32); Blood Urea Nitrogen 22 mg/dL (8-23); Calcium 8.9 mg/Dl (8.8-10.2); Carbon Dioxide 22 mmol/L (22-29); Chloride 98 mmol/L (98-107); Globulin 3.6 g/dL (1.3-4.6); Glucose 167 mg/dL (74-106); Sodium 133 mmol/L (136-145); Total Bilirubin 0.4 mg/dL (0.15-1.2); Total Protein 6.5 g/dL (6.6-8.7)
[2019-10-05 07:09] VITALS: BP 128/76; PULSE 72; RESP 18; TEMP 36.7
[2019-10-05] MEDS: lisinopril 20 mg Tablet PO (10:47)
[2019-10-05 10:51] VITALS: BP 156/75; PULSE 103; RESP 18; TEMP 36.7; O2SAT 96
[2019-10-05] MEDS: pantoprazole 40 mg SDV IVP (11:58)
--- NOTE | 2019-10-05 12:52 | PC.CHAP ---
Pastoral Care Encounter/Spiritual Assessment Type of Contact [] Declined sow farm barn technician visit [] Patient/Family/Request visit [] Outpatient visit [] Follow-up visit [] Physician referral [] Code/Alert [] Routine visit [] Staff referral [] Actively dying [] Patient sleeping [] Family support [] [] Out of room [] Palliative care [] [] Receiving care in room [] Pre-surgical visit [] Trauma [] Long length of stay [] ICU visit [] Other: Relational/Emotional Strength [x] Patient feels connected with others/family/visitors/staff [] Distress [] Loneliness/isolation [] Abandonment Spirituality of Patient [] Person of Marilyn [] Attends Gnosticism of their Marilyn [] Believes in Prayer [] Reads Bible or Confucianism materials [] There are Spiritual issues to be addressed Electrician Chief Interventions [x] Prayer [x] Active listening x[] Non-anxious presence [x] Spiritual/emotional support [] Crisis/trauma care [] Spiritual counseling [] Bereavement support [] Provided bereavement packet [] Provided Bible/devotional materials [] Provided toy/stuffed animal, coloring book to patient or family member [x] Completed spiritual assessment [] Provided Communion [] Anointing/[place] [] Salvation [] Other: Impact on Illness or Injury [] Angry [] Fearful [] Anxious [] Often cries [] Exhaustion [] Unable to work [] Unable to attend uatsdin [] Unable to walk/stand [] Unable to read [] Unable to drive [] Unable to eat/drink [] Unable to sleep [] Unable to be with family [x] Other: 2 family members present. Summary Time spent with patient
[2019-10-05 16:00] VITALS: BP 144/77; PULSE 109; RESP 18; TEMP 36.9; O2SAT 92
--- NOTE | 2019-10-05 16:07 | PM.PN ---
Subjective Subjective: Interval history: Patient had 2-3 episodes of small bowel movements yesterday. These are described as being semisolid. Large amount of stool was noted on the abdominal x-ray yesterday. There was mild to moderate dilatation of the colon. Patient reports abdominal pain is improving however there still continues to be some soreness in her lower abdomen. Medications: Reviewed: Yes Vitals/I&O/Wt Last Vital Signs Temp 98.0 F 10/05/19 10:51 Pulse 103 H 10/05/19 10:51 Resp 18 10/05/19 10:51 BP 156/75 10/05/19 10:51 Pulse Ox 96 10/05/19 10:51 10/05/19 10/05/19 10/05/19 06:59 14:59 22:59 Intake Total 803.333 / 2038.333 360 / 360 Output Total 0 / 0 Balance 803.333 / 2038.333 360 / 360 Weight last 48 hrs Weight 65.572 kg Weight 65.589 kg Weight 63.503 kg Physical Exam Narrative: EXAM NARRATIVE: GEN: Awake, alert and oriented, no acute distress CVS: S1S2 N RS: CTA B/L Abd: Soft, lower abdomen appears distended. Mild tenderness to palpation in the right lower quadrant. Bowel sounds not heard. CLOCK AND WATCH HANDS DIPPER: no focal neuro deficits Data : 10/05/19 02:17 10/05/19 02:17 A&P Assessment and plan (1) Enteritis: -Noted evidence of enteritis on CT scan -Patient had bowel movement yesterday. Now had 2-3 small BMs. Started on clears this morning. Which she is tolerating well. If continues to move her bowels, will try to advance diet as tolerated. - antiemetics and pain control as needed, IV fluid hydration -No leukocytosis, afebrile -Continue Zosyn empirically. -Still with a large amount of stool. We will order additional enema. Status: Acute Code(s): K52.9 - Noninfective gastroenteritis and colitis, unspecified (2) Lactic acidosis: Now resolved Status: Acute Code(s): E87.2 - Acidosis (3) Constipation: -Noted evidence of fecal retention in the cecum and also on the x-ray. -Start on bowel regimen -Repeat enema today. If continues to have watery stools will send for C. difficile. Status: Acute Qualifiers: Constipation type: other constipation type Qualified Code(s): K59.09 - Other constipation Code(s): K59.00 - Constipation, unspecified (4) Hypertension: -Monitor vital signs -We will use metoprolol IV as needed for blood pressure control. Status: Acute Qualifiers: Hypertension type: essential hypertension Qualified Code(s): I10 - Essential (primary) hypertension Code(s): I10 - Essential (primary) hypertension (5) Hyperlipidemia: -Resume statin once p.o. appropriate Status: Acute Qualifiers: Hyperlipidemia type: unspecified Qualified Code(s): E78.5 - Hyperlipidemia, unspecified Code(s): E78.5 - Hyperlipidemia, unspecified Additional A&P Information -Advanced age -GI ppx with PPI -DVT ppx with Lovenox -fall precautions -Dispo: home -Code status: FULL code Attestations Medical Necessity Statement*: Pending recovery of bowel function. Still with significant abdominal distention as a result of impacted stool. Coding Level of Care Code Acute Manager Billing for [facility] Fwd Diagnoses Enteritis K52.9 Lactic acidosis E87.2 Constipation K59.09 Constipation type: other constipation type Hypertension I10 Hypertension type: essential hypertension Hyperlipidemia E78.5 Hyperlipidemia type: unspecified
--- NOTE | 2019-10-05 19:00 | PC.NURSE ---
Introduction of staff and report received, aidet.
[2019-10-05 19:09] VITALS: BP 152/79; PULSE 111; RESP 18; TEMP 36.4; O2SAT 96
[2019-10-05] MEDS: acetaminophen 325 mg Tablet 650 MG PO (21:21)
[2019-10-05 23:57] VITALS: BP 138/62; PULSE 61; RESP 18; TEMP 36.9; O2SAT 98
[2019-10-06] MEDS: sodium chloride 0.9% 1,000 ML 100 ML IV ×2 (03:30→14:00)
[2019-10-06 04:00] VITALS: BP 132/60; PULSE 68; RESP 18; TEMP 36.9; O2SAT 96
[2019-10-06 05:11] LABS: Basophils % 0.1 %; Hematocrit 34.7 % (37.0-47.0); Hemoglobin 10.9 g/dL (11.5-15.3); Lymphocytes # 0.6 10^3/uL (0.8-4.8); Lymphocytes % 4.6 %; Mean Corpuscular HGB Conc 31.4 g/dL (30.0-36.0); Mean Corpuscular Hemoglobin 26.9 pg (28.0-34.0); Mean Corpuscular Volume 85.7 fL (81-99); Monocytes % 7.6 %; Neutrophils # 11.5 10^3/uL (1.8-7.7); Neutrophils % 87.1 %; Nucleated Red Blood Cells % 0 %; Platelet Count 265 10^3/cmm (130-400); Red Blood Count 4.05 10^6/uL (4.1-5.3); Red Cell Distribution Width 14.7 % (12.1-15.1); White Blood Count 13.2 10^3/uL (4.0-10.0)
[2019-10-06] MEDS: piperacillin-tazobactam 3.375 GM in sodium chloride 0.9% (plus) 50 ML IV ×2 (06:52→14:00)
[2019-10-06 07:19] VITALS: BP 165/84; PULSE 92; RESP 18; TEMP 37; O2SAT 96
[2019-10-06] MEDS: pantoprazole 40 mg SDV IVP (08:32)
[2019-10-06] MEDS: lisinopril 20 mg Tablet PO (08:32)
--- NOTE | 2019-10-06 09:24 | P.PN_ITS ---
Subjective Subjective: Interval history: Patient states she is feeling little bit better. Less abdominal pain. She had a bowel movement this morning with the enema. No chest pain or fevers or chills. Vitals/I&O/Wt Last Vital Signs Temp 98.6 F 10/06/19 07:19 Pulse 92 10/06/19 07:19 Resp 18 10/06/19 07:19 BP 165/84 10/06/19 07:19 Pulse Ox 96 10/06/19 07:19 10/05/19 10/06/19 10/06/19 22:59 06:59 14:59 Intake Total 641.375 / 2933.042 931.667 / 2933.042 120 / 120 Output Total 300 / 750 450 / 750 Balance 341.375 / 2183.042 481.667 / 2183.042 120 / 120 Weight last 48 hrs Weight 145 lb Weight 144 lb 9 oz Physical Exam Narrative: EXAM NARRATIVE: General: No acute distress, Alert. Well nourished. Heart: Regular rate and rhythm. No murmurs, rubs or gallops. Normal capillary refill. Lungs: Clear to auscultation. No wheezes, rhonchi or rales. Abdomen: Positive bowel sounds. Moderately distended and mildly tender throughout. No hepatosplenomegaly. No gaurding. Extremities: No clubbing, cyanosis, or edema. Negative Elizabeth's Data : 10/06/19 04:21 10/05/19 02:17 Micro: Microbiology 10/06/19 06:35 C.difficile Toxin B Gene (PCR) - Final Stool A&P Assessment and plan (1) Enteritis: Suspect this is from a viral illness. Sounds like her sister had the same thing. She seems to be improving slowly. We will see if we can get better bowel movements with milk of magnesia and advance her diet to full liquid diet today. Anticipate discharge probably later this afternoon. Status: Acute Code(s): K52.9 - Noninfective gastroenteritis and colitis, unspecified (2) Constipation: Dose of milk of magnesia this morning Status: Acute Qualifiers: Constipation type: other constipation type Qualified Code(s): K59.09 - Other constipation Code(s): K59.00 - Constipation, unspecified Attestations Medical Necessity Statement*: Anticipate discharge later today. Coding Level of Care Code Acute Senior Radiation Protection Technician for [facility] Fwd Diagnoses Enteritis K52.9 Constipation K59.09 Constipation type: other constipation type
[2019-10-06] MEDS: magnesium hydroxide 30 mL UDC PO (10:57)
[2019-10-06 11:05] VITALS: BP 151/81; PULSE 101; RESP 18; TEMP 36.9; O2SAT 94
[2019-10-06 16:00] VITALS: BP 132/77; PULSE 110; RESP 18; TEMP 37.6; O2SAT 94
--- NOTE | 2019-10-06 16:37 | PM.DCS ---
Discharge Providers Date of Admission: 10/04/19 01:50 Date of Discharge: 10/06/19 Attending Provider at Admission: Carmen Perrin MD Attending Provider at Discharge: Devan Craven MD Primary Care Provider: Devan Craven MD Diagnoses at Discharge Discharge Diagnosis (1) Enteritis: Status: Acute (2) Constipation: Status: Acute Qualifiers: Constipation type: other constipation type Qualified Code(s): K59.09 - Other constipation Reason for Visit Reason for Visit: Reason For Visit: CONSTIPATION, ENTERITIS Hospital Course Hospital Course: Patient was admitted with enteritis and abd pain and vomitting and constipation. Placed on Zosyn. Given laxatives. Symptoms improved at discharge Discharge Data Data Completed and Pending: Completed Studies During Hospitalization Category Date Time Status CT abdomen pelvis w con* [id number] Urge nt Cat Scan 10/03/19 20:03 Completed XR abdomen 1V* 74 018 Routine Exams 10/04/19 17:01 Completed XR chest 1V juanis ble [id number] Stat Exams 10/03/19 18:56 Completed US abdomen limite d [id number] Urgent Ultrasound 10/03/19 19:04 Completed Pending at discharge Category Date Time Status Complete Blood Co unt w/Auto AM LABS Lab 10/07/19 04:00 Ordered Streptococcus Cul ture Group A Stat Lab 10/04/19 23:35 Results Labs from last 24 hours 10/06/19 04:21 WBC 13.2 H RBC 4.05 L Hgb 10.9 L Hct 34.7 L MCV 85.7 MCH 26.9 L MCHC 31.4 RDW 14.7 Plt Count 265 MPV 10.0 Neut % (Auto) 87.1 Lymph % (Auto) 4.6 [place] % (Auto) 7.6 Eos % (Auto) 0.0 Baso % (Auto) 0.1 Neut # (Auto) 11.5 H Lymph # (Auto) 0.6 L [place] # (Auto) 1.0 H Eos # (Auto) 0.0 Baso # (Auto) 0.0 Nucleated RBC % (a uto) 0 Nucleated RBCs # 0.0 Vitals: Last Vital Signs Temp 99.6 F 10/06/19 16:00 Pulse 110 H 10/06/19 16:00 Resp 18 10/06/19 16:00 BP 132/77 10/06/19 16:00 Pulse Ox 94 10/06/19 16:00 Discharge Plan Discharge Patient Disposition: Home, Self-Care Condition: Stable Prescriptions: Continued lisinopril 20 mg Tablet 20 mg PO DAILY RF: 0 pravastatin 20 mg Tablet 20 mg PO DAILY RF: 0 Aspirin Low Dose 81 mg Tablet,Delayed Release (Dr/Ec) 81 mg PO DAILY RF: 0 Discharge Orders: Discharge Order (Routine); Ordered 10/06/19 Ordered By: Devan Craven Referrals: Devan Craven MD [Primary Care Provider] - Discharge Diet: Full LIquid Discharge Activity: Resume usual activity Activity Restrictions/Additional Instructions: - resume your home medications the same - Call if increased pain/ vomitting/ diarrhea. - Follow up with Dr. Craven in 2-3 days if not improving. Discharge Attestations Time Spent in Discharge Care*: greater than 30 min Quality Metrics Clinical Quality Measures During this hospital stay, did patient experience: None Coding Level of Care Code Acute Fur Cutting Machine Operator for g Fwd Diagnoses Enteritis K52.9 Constipation K59.09 Constipation type: other constipation type
[2019-10-06 18:13] VITALS: BP 132/77; PULSE 110; RESP 18; TEMP 37.6; O2SAT 94
== END 2019-10-06 18:14 | disposition home or self-care (01) | DRG 392 ==
LOC: ER 10-04 01:47 → MEDSURG 10-04 01:51
PROVIDERS: Nurse Practitioner Family; Admitting Provider Family Medicine; Emergency Provider Emergency Medicine; Family Provider Family Medicine; PCP Family Medicine; Visit Provider Family Medicine
DX: K52.9 Noninfective gastroenteritis and colitis, unspecified (principal); E87.2 Acidosis; Z79.82 Long term (current) use of aspirin; K59.09 Other constipation; I10 Essential (primary) hypertension; E78.5 Hyperlipidemia, unspecified; Z96.643 Presence of artificial hip joint, bilateral
CPT/HCPCS: 12345; 36415; 45915; 71045; 74018; 74177; 76705; 80048; 80053; 81003; 83605; 83690; 85025; 87081; 87493; 87880; 93005; 96372; 96374; 96375; 99283; C9113; J1170; J1650; J2270; J2405; J2543; J7030; Q9967

== ENCOUNTER 2019-10-13 11:33 | Inpatient (IN) | payer MEDICARE, SELFPAY ==
[2019-10-13 11:58] VITALS: BP 86/46; PULSE 98; RESP 18; TEMP 36.3; O2SAT 88; BMI 22.8
--- NOTE | 2019-10-13 12:08 | CT_ITS ---
WS: [id number] CT ABDOMEN AND PELVIS WITH CONTRAST HISTORY: Abdominal pain for 10 days. TECHNIQUE: Imaging performed of the abdomen and pelvis with IV contrast. Single phase imaging of the abdomen. Coronal and sagittal reformats are submitted. All CT scans at [facility] use at least one of these dose optimization techniques: automated exposure control; mA and/or kV adjustment per patient size (includes targeted exams where dose is matched to clinical indication); or iterativ e reconstruction. IV CONTRAST: Omnipaque 300; 95 mL IV. Oral contrast: No DLP: 1091.18 mGy.cm COMPARISON: 10/03/2019 Lower thorax: Marked distention of the distal esophagus with fluid. New finding since the prior study . Mild enlargement of the heart, similar to the prior study. There is a very small pericardial effusi on anteriorly. Small bilateral pleural effusions are new. Liver/biliary system: Normal size liver with mild intrahepatic duct dilatation, similar to prior stud ies. There is a small cyst, subcentimeter in the RIGHT lobe. Gallbladder: Gallbladder is being displaced and compressed by the significant GI tract dilatation. Pancreas: Normal. Spleen: Normal. Adrenal glands: Normal. Right kidney: Normal. Left kidney: Normal. Aorta: Moderate atherosclerosis aorta. No aneurysm. Lymphadenopathy: None. Free fluid: None. GI tract: There is severe fluid distention of the distal esophagus, stomach and small bowel. Small jai wel distention extends to the distal small bowel. There is wall thickening and a transition point in the RIGHT lower quadrant. The colon is collapsed. Significant progression of findings since the prior examination. Patient is at significant risk for perforation due to the marked distention. Small montse l loops measure up to 5.5 cm. There is twisting and torsional of a loop of small bowel in the RIGHT l ower quadrant, best seen on the coronal and sagittal images. Abdominal wall: Unremarkable abdominal wall. No hernia. Anasarca throughout the soft tissues. Pelvis: Beam hardening artifact through the pelvis by patient hip prostheses. Urinary bladder is poor ly visualized. Bones: Advanced degenerative changes throughout the lumbar spine. No destructive bone lesions. Prior bilateral hip arthroplasties. CT/CT abdomen pelvis w con* [id number] IMPRESSION: 1. Severe distal small bowel obstruction. Marked progression since 10/03/2019. Transition point and site of obstruction is in the RIGHT lower quadrant. Severe small bowel obstruction with fluid filled stomach and distal esophagus. 2. Anasarca. 3. New small bilateral pleural effusions.
--- NOTE | 2019-10-13 12:09 | ED_ITS ---
Entered by Shena Pang, acting as scribe for Dejuan Concepcion MD HPI - Abdominal Pain General: Chief Complaint: Abdominal Pain Stated Complaint: abd pain, weakness Time Seen by Provider: 10/13/19 12:08 Source: patient and RN notes reviewed Mode of arrival: wheelchair Limitations: no limitations History of Present Illness: HPI narrative: 79 yo female presents to ED with complaints of a sore and distended abdomen. She was discharged from the hospital a week ago and has been getting weaker since she left. The patient's PCP is Dr Craven. elicited complaint: abdominal pain Onset (ago): hour(s) (2) Pain Consistency: constant Location: Diffuse Severity: severe Quality: cramping and aching Radiation: none Migration to: no migration Exacerbating factors: eating, bowel movement and movement Relieving factors: nothing Context: recent antibiotic use Associated Symptoms: Denies chills, diarrhea, dysuria, fever(s), nausea and vomiting Review of Systems Const: Denies: fever or chills Eyes: Denies: blurry vision or eye discomfort ENMT: Denies: throat pain or dental pain Card: Denies: chest pain Resp: Denies: shortness of breath GI: Denies: nausea, vomiting or diarrhea : Denies: painful urination Musc: Denies: neck pain or back pain Skin/Breast: Denies: rash Neuro: Denies: headache Psych: Denies: depression Guru/Lymph: Denies: easy bruising All/Imm: Denies: hives PFSH ED PFSH: Statuses (acute, chronic, etc) shown below reflect problem list status as previously entered and may not be historically accurate Social History Smoking and tobacco status: former smoker Alcohol intake: never Lives independently: Yes Housing: House Physical Exam Const: COMMON NORMALS: no apparent distress, oriented x3 and healthy appearing HENMT: COMMON NORMALS: normocephalic and head/scalp atraumatic HEAD & SCALP: normocephalic and atraumatic Eye: COMMON NORMALS: PERRL and EOMs intact bilaterally PUPIL: Yes PERRL Neck/C-Spine: COMMON NORMALS: full ROM and supple Chest: COMMONS NORMALS: inspection of chest normal and palpation of chest normal Resp: COMMON NORMALS: normal respiratory effort, no retractions, no use of accessory muscles and clear to auscultation bilaterally AUSCULTATION: clear to auscultation bilaterally Cardio: COMMON NORMALS: regular rate, regular rhythm and no murmurs RATE: regular rate RHYTHM: regular rhythm GI: COMMON NORMALS: soft to palpation, non-tender and no masses PALPATION: Yes soft OTHER: distended abdomen Extremity: COMMON NORMALS: normal to inspection and full ROM Neuro: COMMON NORMALS: oriented x3, moves all extremities and no focal motor deficits Psych: COMMON NORMALS: mental status grossly normal, thought process normal and cooperative THOUGHT PROCESS: normal thought process Skin: COMMON NORMALS: no rashes or lesions noted and no wounds GENERAL SKIN EXAM: no rashes or lesions noted Course Vital Signs: Vital signs: Vital Signs Temperature 97.4 F L 10/13/19 11:58 Pulse Rate 97 10/13/19 14:14 Respiratory Rate 17 10/13/19 14:14 Blood Pressure 98/54 10/13/19 14:14 Pulse Oximetry 95 10/13/19 14:14 MDM - Abdominal Pain MDM Narrative: Medical decision making narrative: Patient presents with a small bowel obstruction. NG tube was placed and has returned a large amount. I spoke to Dr. Craven who is admitting I also consulted Dr. Han. Patient has been stable while here and will admit her to [facility]. Lab Data: Labs: Lab Results 10/13/19 10/13/19 10/13/19 Range/Units 12:18 12:18 12:18 WBC 13.3 H (4.0-10.0) 10^3/ uL RBC 4.49 (4.1-5.3) 10^6/u L Hgb 11.6 (11.5-15.3) g/dL Hct 37.1 (37.0-47.0) % MCV 82.6 (81-99) fL MCH 25.8 L (28.0-34.0) pg MCHC 31.3 (30.0-36.0) g/dL RDW 14.8 (12.1-15.1) % Plt Count 438 H (130-400) 10^3/c mm MPV 9.6 (7.4-10.4) fL Neut % (Auto) 94.0 % Lymph % (Auto) 2.2 % [place] % (Auto) 2.8 % Eos % (Auto) 0.1 % Baso % (Auto) 0.2 % Neut # (Auto) 12.5 H (1.8-7.7) 10^3/u L Lymph # (Auto) 0.3 L (0.8-4.8) 10^3/u L [place] # (Auto) 0.4 (0.2-0.9) 10^3/u L Eos # (Auto) 0.0 (0.0-0.8) 10^3/u L Baso # (Auto) 0.0 (0.0-0.1) 10^3/u L Nucleated RBC % (a uto) 0 % Nucleated RBCs # 0.0 /100WBC Sodium 130 L (136-145) mmol/L Potassium 4.2 (3.5-5.1) mmol/L Chloride 83 L (98-107) mmol/L Carbon Dioxide 24 (22-29) mmol/L Anion Gap 27.2 H (5-19) BUN 57 H (8-23) mg/dL Creatinine 1.9 H (0.5-0.9) mg/dL Glucose 108 H (74-106) mg/dL Lactate 1.7 (0.5-2.2) mmol/L Calcium 8.7 (8.5-10.5) mg/dL Total Bilirubin 0.4 (0.15-1.2) mg/dL AST 28 (0-32) U/L ALT 23 (0-33) U/L Alkaline Phosphata se 82 (35-105) IU/L Total Protein 6.0 L (6.6-8.7) g/dL Albumin 3.1 L (3.5-5.2) g/dL Globulin 2.9 (1.3-4.6) g/dL Lipase 538 H (13-60) U/L Imaging Data ^: CT Abd/Pel: Radiologist's impression: [address] [address] [address] Scan Report Signed Patient: Emerald Subramanian Unit #: [id number] : 1940 Age/Sex: 79 / F ADM Date: 10/13/19 Loc: ER Room/Bed: Attending Dr: Ordering Provider/Ordering MD: Dejuan Concepcion MD Date of Service: 10/13/19 Procedure(s): CT abdomen pelvis w con* [id number] Accession Number(s): [id number] Report Number: [id number] WS: [id number] CT ABDOMEN AND PELVIS WITH CONTRAST HISTORY: Abdominal pain for 10 days. TECHNIQUE: Imaging performed of the abdomen and pelvis with IV contrast. Single phase imaging of the abdomen. Coronal and sagittal reformats are submitted. All CT scans at [facility] use at least one of these dose optimization techniques: automated exposure control; mA and/or kV adjustment per patient size (includes targeted exams where dose is matched to clinical indication); or iterative reconstruction. IV CONTRAST: Omnipaque 300; 95 mL IV. Oral contrast: No DLP: 1091.18 mGy.cm COMPARISON: 10/03/2019 Lower thorax: Marked distention of the distal esophagus with fluid. New finding since the prior study. Mild enlargement of the heart, similar to the prior study. There is a very small pericardial effusion anteriorly. Small bilateral pleural effusions are new. Liver/biliary system: Normal size liver with mild intrahepatic duct dilatation, similar to prior studies. There is a small cyst, subcentimeter in the RIGHT lobe. Gallbladder: Gallbladder is being displaced and compressed by the significant GI tract dilatation. Pancreas: Normal. Spleen: Normal. Adrenal glands: Normal. Right kidney: Normal. Left kidney: Normal. Aorta: Moderate atherosclerosis aorta. No aneurysm. Lymphadenopathy: None. Free fluid: None. GI tract: There is severe fluid distention of the distal esophagus, stomach and small bowel. Small bowel distention extends to the distal small bowel. There is wall thickening and a transition point in the RIGHT lower quadrant. The colon is collapsed. Significant progression of findings since the prior examination. Patient is at significant risk for perforation due to the marked distention. Small bowel loops measure up to 5.5 cm. There is twisting and torsional of a loop of small bowel in the RIGHT lower quadrant, best seen on the coronal and sagittal images. Abdominal wall: Unremarkable abdominal wall. No hernia. Anasarca throughout the soft tissues. Pelvis: Beam hardening artifact through the pelvis by patient hip prostheses. Urinary bladder is poorly visualized. Bones: Advanced degenerative changes throughout the lumbar spine. No destructive bone lesions. Prior bilateral hip arthroplasties. CT/CT abdomen pelvis w con* [id number] IMPRESSION: 1. Severe distal small bowel obstruction. Marked progression since 10/03/2019. Transition point and site of obstruction is in the RIGHT lower quadrant. Severe small bowel ob struction with fluid filled stomach and distal esophagus. 2. Anasarca. 3. New small bilateral pleural effusions. Dictated By: Melina Cabrera DO Signed By: Melina Cabrera DO Signed Date/Time: 10/13/19 1318 DD/ EKG Data ^: EKG 1: Attestation: I personally reviewed and interpreted this EKG as follows: EKG interpretation date: 10/13/19 EKG interpretation time: 12:17 Interpretation: sinus tach hr [address] or t wave abnormalities Discharge Plan Discharge Patient Disposition: Admitted As Inpatient Admit Provider: Gustavo Martinez Clinical Impression: Small bowel obstruction Condition: Stable Referrals: Devan Craven MD [Primary Care Provider] - Interventions: ED Discharge Assessment Last Done: 10/13/19 14:14 Coding Level of Care Code ED Substation Superintendent for Chg Fwd The documentation recorded by the Bird jaquez Valerie R, accurately reflects the service I personally performed and the decisions made by Genan conroy Korby, MD Oct 13, 2019 11:33
[2019-10-13] MEDS: sodium chloride 0.9% 1,000 ML 999 ML IV (12:15)
[2019-10-13 12:19] VITALS: BP 93/57; PULSE 102
[2019-10-13 12:23] LABS: Basophils % 0.2 %; Eosinophils % 0.1 %; Hematocrit 37.1 % (37.0-47.0); Hemoglobin 11.6 g/dL (11.5-15.3); Lymphocytes # 0.3 10^3/uL (0.8-4.8); Lymphocytes % 2.2 %; Mean Corpuscular HGB Conc 31.3 g/dL (30.0-36.0); Mean Corpuscular Hemoglobin 25.8 pg (28.0-34.0); Mean Corpuscular Volume 82.6 fL (81-99); Mean Platelet Volume 9.6 fL (7.4-10.4); Monocytes # 0.4 10^3/uL (0.2-0.9); Monocytes % 2.8 %; Neutrophils # 12.5 10^3/uL (1.8-7.7); Nucleated Red Blood Cells % 0 %; Platelet Count 438 10^3/cmm (130-400); Red Blood Count 4.49 10^6/uL (4.1-5.3); Red Cell Distribution Width 14.8 % (12.1-15.1); White Blood Count 13.3 10^3/uL (4.0-10.0)
[2019-10-13 12:42] LABS: Alanine Aminotransferase 23 U/L (0-33); Albumin Level 3.1 g/dL (3.5-5.2); Alkaline Phosphatase 82 IU/L (35-105); Anion Gap 27.2 (5-19); Aspartate Amino Transferase 28 U/L (0-32); Blood Urea Nitrogen 57 mg/dL (8-23); Calcium 8.7 mg/dL (8.5-10.5); Carbon Dioxide 24 mmol/L (22-29); Chloride 83 mmol/L (98-107); Globulin 2.9 g/dL (1.3-4.6); Glucose 108 mg/dL (74-106); Potassium 4.2 mmol/L (3.5-5.1); Sodium 130 mmol/L (136-145); Total Bilirubin 0.4 mg/dL (0.15-1.2)
[2019-10-13 12:43] LABS: Lactate (Lactic Acid level) 1.7 mmol/L (0.5-2.2)
[2019-10-13] MEDS: iohexol 300 mg/mL 100 mL Btl IV (12:49)
[2019-10-13 13:00] VITALS: PULSE 105; O2SAT 97
[2019-10-13 13:07] LABS: Lipase 538 U/L (13-60)
--- NOTE | 2019-10-13 13:28 | ECG_ITS ---
Measurements Intervals Rossiter Rate: 107 P: 30 SD: 132 QRS: -36 QRSD: 94 T: 41 QT: 349 QTc: 468 SINUS TACHYCARDIA WITH OCCASIONAL SUPRAVENTRICULAR PREMATURE COMPLEXES LEFT AXIS DEVIATION [QRS AXIS < -30] POSSIBLE ANTERIOR MYOCARDIAL INFARCTION , OF INDETERMINATE AGE [30 ms Q WAVE IN V3/V4, OR R < 0.2 mV IN V4] Compared to ECG 10/03/2019 19:02:19 Left-axis deviation now present Myocardial infarct finding now present Sinus rhythm no longer present Electronically Signed On 10-13-2019 17:53:07 [employer]UDGE [employer]AND[employer] by Justus Truong M.D. [email or web address]
--- NOTE | 2019-10-13 14:05 | XRR_ITS ---
PROCEDURE INFORMATION: Exam: XR Chest, 1 View Exam date and time: 10/13/2019 2:14 PM Age: 79 years old Clinical indication: Device placement; Ng tube; Additional info: Ng placement TECHNIQUE: Imaging protocol: XR of the chest Views: 1 view. COMPARISON: CR (CHEST, ) 10/03/2019 8:30 PM FINDINGS: Lungs: There is patchy consolidation in the bilateral lung bases. Pleural space: There are small bilateral pleural effusions. No pneumothorax. Heart/Mediastinum: Unremarkable. No cardiomegaly. Bones/joints: Unremarkable. There is a nasogastric tube whose tip is in the gastric fundus. XR/XR chest 1V portable [id number] IMPRESSION: There is a nasogastric tube whose tip is in the gastric fundus.
[2019-10-13 14:14] VITALS: BP 98/54; PULSE 97; RESP 17; O2SAT 95
--- NOTE | 2019-10-13 14:32 | PC.NURSE ---
1800 mL of gastric content suctioned from patients stomach.
[2019-10-13 15:03] VITALS: BP 123/75; PULSE 82; RESP 17; TEMP 36.8; O2SAT 96
--- NOTE | 2019-10-13 16:03 | P.CONIM_ITS ---
Providers/Reason For Consult Consulting Physican/Specialty*: Primary care Reason for Consult*: Small bowel obstruction Attending Physician: Gustavo Martinez MD Primary Care Provider: Devan Craven MD History of Present Illness History of Present Illness Emerald Subramanian is a 79 year old female who presented to the ER with worsening generalized abdominal pain associated with nausea and vomiting and distention. She had been admitted to the hospital 10 days ago with suspected ent eritis/partial small bowel obstruction and was managed conservatively. She had been doing well until this morning when her abdominal pain progressively worsened, sharp, did not radiate. This was associated significant abdominal distention. She had a CT in the ER which showed small bowel obstruction. Since the NG tube was placed she is feeling a lot better. Review of Systems Const: Denies: fever, chills, change in weight or fatigue Eyes: Denies: change in vision ENMT: Denies: painful swallowing Card: Denies: chest pain Resp: Denies: shortness of breath : Denies: painful urination Skin/Breast: Denies: rash, nipple discharge or breast mass/lump Neuro: Denies: seizure-like activity Guru/Lymph: Denies: easy bruising Meds/Allergies Home Medications and Allergies Home Medications Medication Instructions Recorded Confirmed Type aspirin [Aspirin Low Dose] 81 mg PO DAILY 10/04/19 10/13/19 History lisinopril 20 mg PO DAILY 10/04/19 10/13/19 History pravastatin 20 mg PO DAILY 10/04/19 10/13/19 History cefuroxime axetil 500 mg PO BID 10/13/19 10/13/19 History fluticasone propionate 1 spray INTRANASAL DAILY PRN 10/13/19 10/13/19 History Allergies Allergy/AdvReac Type Severity Reaction Status Date / Time ciprofloxacin [From Cipro] Allergy Unknown Unknown Verified 10/13/19 13:45 amoxicillin Allergy ALGY-Rash Verified 10/03/19 18:47 prednisone Allergy ADR-Diarrhe Verified 10/03/19 18:47 a Sulfa (Sulfonamide Allergy ALGY-Redness Verified 10/03/19 18:47 Antibiotics) of Skin PFSH Acute PFSH: Statuses (acute, chronic, etc) shown below reflect problem list status as previously entered and may not be historically accurate Medical History Hyperlipidemia (Resolved) Hypertension (Resolved) Surgical History H/O: hysterectomy (Acute) S/P hip replacement (Acute) bilateral Family History Other CAD (coronary artery disease) Social History Smoking and tobacco status: former smoker Alcohol intake: never Lives independently: Yes Housing: House Vitals/I&O/Wt Last Vital Signs Temp 98.2 F 10/13/19 15:03 Pulse 82 10/13/19 15:03 Resp 17 10/13/19 15:03 BP 123/75 10/13/19 15:03 Pulse Ox 96 10/13/19 15:03 Weight last 48 hrs Weight 137 lb Physical Exam Narrative: EXAM NARRATIVE: HEENT: Normocephalic, NG tube in place Eye: Sclera /conjunctiva normal Respiratory and chest: Bilateral clear breath sounds on auscultation Cardiovascular: Normal S1 and S2 heart sounds Abdomen: Soft to palpation, mildly distended, no peritonitis Neurological: Oriented to place person and time Skin: Intact, no lesions appreciated on gross exam Data Imaging^: CT Abd/Pel: Radiologist's impression: 1. Severe distal small bowel obstruction. Marked progression since 10/03/2019. Transition point and site of obstruction is in the RIGHT lower quadrant. Severe small bowel obstruction with fluid filled stomach and distal esophagus. 2. Anasarca. 3. New small bilateral pleural effusions. A&P Assessment and plan (1) Small bowel obstruction: 79-year-old female with a history of hysterectomy who presents with small bowel obstruction most likely secondary to adhesions. No evidence of peritonitis and she is hemodynamically stable. We will therefore treat her conservatively. Continue NG tube to low intermittent suction Abdominal series in the morning Daily labs Discussed with the patient that if there is no improvement in the next 48 to 72 hours or if he develops any signs of peritonitis or hemodynamic instability then we will proceed with surgery Status: Acute Code(s): K56.609 - Unspecified intestinal obstruction, unspecified as to partial versus complete obstruction Consult Attestations 2 Medical Necessity Statement: Mall bowel obstruction requiring continued inpatient hospital stay Coding Level of Care Code Acute Operations And Maintenance Technician for [facility] Fwd Diagnoses Small bowel obstruction K56.603
[2019-10-13] MEDS: enoxaparin 40 mg/0.4 mL Syringe SUBCUT (18:10)
[2019-10-13] MEDS: sodium chlor 0.45% +KCl 20 mEq 20 MEQ/1,000 ML BAG 125 MEQ IV (18:11)
--- NOTE | 2019-10-13 19:36 | PM.HP ---
Providers/Chief Complaint Admitting Physician: Devan Craven MD Primary Care Provider: Devan Craven MD Chief Complaint: abd pain, weakness History of Present Illness Emerald Subramanian is a 79 year old female who came into the emergency room today for increasing abdominal pain nausea and vomiting. She was admitted to the hospital 10 days ago for similar episode. Was found to have either an enteritis or partial small bowel obstruction. She was treated conservatively in the hospital and her symptoms improved. She actually has been doing quite well at home. Getting stronger and recovering nicely. She said that this morning she acutely got worsening abdominal pain. Nausea developed later. And prompted her come to the ER. In the ER CT scan revealed a worsening small bowel obstruction. She had an NG tube placed and is feeling much better right now. She denies any fevers or chills. Review of Systems Narrative: General: No chronic fevers or chronic weight changes. HEENT: No acute changes in vision. No acute hearing loss. No new difficulty swallowing. Heart: No new chest pain or recent issues with coronary disease. Lungs: No history of TB. No chronic lung disease. GI: No history of GI bleeding. No hepatitis. No chronic nausea or vomitting. Renal: No dysuria or frequency. No hematuria Neuro: No acute neurological changes or deficits. Musculoskeletal: No acutely worsening joint pain or swelling. Medications/Allergies Home Medications Medication Instructions Recorded Confirmed Last Taken Type cefuroxime axetil 500 mg PO BID 10/13/19 10/13/19 10/12/19 History fluticasone propionate 1 spray INTRANASAL DAILY PRN 10/13/19 10/13/19 Unknown History Allergies Allergy/AdvReac Type Severity Reaction Status Date / Time ciprofloxacin [From Cipro] Allergy Unknown Unknown Verified 10/13/19 13:45 amoxicillin Allergy ALGY-Rash Verified 10/03/19 18:47 prednisone Allergy ADR-Diarrhe Verified 10/03/19 18:47 a Sulfa (Sulfonamide Allergy ALGY-Redness Verified 10/03/19 18:47 Antibiotics) of Skin PFSH Acute PFSH: Statuses (acute, chronic, etc) shown below reflect problem list status as previously entered and may not be historically accurate Medical History Hyperlipidemia (Resolved) Hypertension (Resolved) Surgical History (Updated 10/13/19 @ 15:59 by Tommy Han MD) H/O: hysterectomy (Acute) S/P hip replacement (Acute) bilateral Social History Smoking and tobacco status: former smoker Alcohol intake: never Lives independently: Yes Housing: House Vitals/I&O/Wt Last Vital Signs Temp 98.2 F 10/13/19 15:03 Pulse 82 10/13/19 15:03 Resp 17 10/13/19 15:03 BP 123/75 10/13/19 15:03 Pulse Ox 96 10/13/19 15:03 Weight last 48 hrs Weight 137 lb Physical Exam Narrative: EXAM NARRATIVE: General: No acute distress, Alert. Well nourished. HEENT: PERRLA, EOMI. vision grossly normal. Throat clear. Neck: supple, no adenopathy. Heart: Regular rate and rhythm. No murmurs, rubs or gallops. Normal capillary refill. Lungs: Clear to auscultation. No wheezes, rhonchi or rales. Abdomen: Positive bowel sounds. Moderately distended. Only mild tenderness. No hepatosplenomegaly. No gaurding. Extremities: No clubbing, cyanosis, or edema. Negative Elizabeth's. Data : 10/13/19 12:18 10/13/19 12:18 A&P Assessment and plan (1) Small bowel obstruction: Patient was admitted to the hospital 10 days ago for similar episode. I suspect this probably is due to adhesions. She is feeling better with the NG tube placed. We will see how she does with this overnight. If this continues to recur she will probably need to have laparoscopy and adhesiolysis. I appreciate surgery's consultation. We will continue with NG tube for now. Monitor progress. She has a mildly elevated lipase which I suspect is from her small bowel obstruction as well. We will monitor for other signs of pancreatitis. Status: Acute Code(s): K56.609 - Unspecified intestinal obstruction, unspecified as to partial versus complete obstruction (2) Acute kidney injury: Renal function was normal last week. Suspect the elevated BUN and creatinine are due to dehydration and her obstruction. We will give her gentle IV fluids and monitor for improvement in the morning. Status: Acute Code(s): N17.9 - Acute kidney failure, unspecified (3) Dehydration: IV fluids as above. Status: Acute Code(s): E86.0 - Dehydration (4) Hyponatremia: This seems to be a bit chronic for her. We will continue to monitor for improvement with IV fluids. Status: Acute Code(s): E87.1 - Hypo-osmolality and hyponatremia Attestations Medical Necessity Statement*: This very pleasant lady with a small bowel obstruction requiring continued inpatient hospitalization and monitoring. Her care is anticipated to cross 2 midnights. Coding Level of Care Code Acute Laborer Construction Or Leak Gang for g Fwd Diagnoses Small bowel obstruction K56.609 Acute kidney injury N17.9 Dehydration E86.0 Hyponatremia E87.1
[2019-10-13 20:00] VITALS: BP 93/56; PULSE 103; RESP 18; TEMP 36.4; O2SAT 94
[2019-10-14] VITALS (11 sets, daily range): BP systolic 80–126; BP diastolic 49–64; PULSE 94–122; RESP 17–20; TEMP 36.3–37.1; O2SAT 90–98
--- NOTE | 2019-10-14 05:39 | PC.NURSE ---
Total output of NG is 2,000 mls on this shift. Minus the ice chips of 120 mls and the flush of 30 mls the total output is 1,850 mls.
[2019-10-14 05:56] LABS: Basophils % 0.1 %; Eosinophils # 0.1 10^3/uL (0.0-0.8); Eosinophils % 0.6 %; Hematocrit 30.5 % (37.0-47.0); Hemoglobin 9.6 g/dL (11.5-15.3); Lymphocytes # 0.5 10^3/uL (0.8-4.8); Lymphocytes % 5.8 %; Mean Corpuscular HGB Conc 31.5 g/dL (30.0-36.0); Mean Corpuscular Hemoglobin 25.7 pg (28.0-34.0); Mean Corpuscular Volume 81.6 fL (81-99); Mean Platelet Volume 9.7 fL (7.4-10.4); Monocytes # 0.8 10^3/uL (0.2-0.9); Monocytes % 9.5 %; Neutrophils # 7.1 10^3/uL (1.8-7.7); Neutrophils % 83.3 %; Nucleated Red Blood Cells % 0 %; Platelet Count 398 10^3/cmm (130-400); Red Blood Count 3.74 10^6/uL (4.1-5.3); Red Cell Distribution Width 14.6 % (12.1-15.1); White Blood Count 8.6 10^3/uL (4.0-10.0)
[2019-10-14 06:12] LABS: Alanine Aminotransferase 16 U/L (0-33); Albumin Level 2.1 g/dL (3.5-5.2); Alkaline Phosphatase 63 IU/L (35-105); Anion Gap 21.8 (5-19); Aspartate Amino Transferase 21 U/L (0-32); Blood Urea Nitrogen 60 mg/dL (8-23); Calcium 7.9 mg/dL (8.5-10.5); Carbon Dioxide 25 mmol/L (22-29); Chloride 89 mmol/L (98-107); Glucose 84 mg/dL (74-106); Potassium 3.8 mmol/L (3.5-5.1); Sodium 132 mmol/L (136-145); Total Bilirubin 0.2 mg/dL (0.15-1.2); Total Protein 5.1 g/dL (6.6-8.7)
[2019-10-14] MEDS: sodium chlor 0.45% +KCl 20 mEq 20 MEQ/1,000 ML BAG 125 MEQ IV (06:22)
--- NOTE | 2019-10-14 06:57 | P.PN_ITS ---
Subjective Subjective: Interval history: Patient seen to be doing better. Pains a bit better. She still has not passed any gas though. No fevers or chills. No chest pain. She is having some cough. She had a lot out her NG tube overnight. Vitals/I&O/Wt Last Vital Signs Temp 98.6 F 10/14/19 04:00 Pulse 105 H 10/14/19 04:00 Resp 18 10/14/19 04:00 BP 101/56 10/14/19 04:00 Pulse Ox 93 10/14/19 04:00 10/13/19 10/13/19 10/14/19 14:59 22:59 06:59 Intake Total 1150 / 1150 Output Total 1999 Balance -850 / -850 Weight last 48 hrs Weight 137 lb Physical Exam Narrative: EXAM NARRATIVE: General: No acute distress, Alert. Well nourished. Heart: Regular rate and rhythm. No murmurs, rubs or gallops. Normal capillary refill. Lungs: Clear to auscultation. No wheezes, rhonchi or rales. Abdomen: Positive bowel sounds. Non-tender, non-distended. No hepatosplenomegaly. No gaurding. Extremities: No clubbing, cyanosis, or edema. Negative Elizabeth's Data : 10/14/19 05:15 10/14/19 05:15 A&P Assessment and plan (1) Small bowel obstruction: Patient still has a lot coming out her NG tube. I do not feel like the obstruction is resolved at this time. -I do feel like this is probably related to adhesions. Continue with conservative management for now. -Appreciate surgery's consultation. Status: Acute Code(s): K56.609 - Unspecified intestinal obstruction, unspecified as to partial versus complete obstruction (2) Acute kidney injury: -Improving some this morning. Continue with gentle IV fluids. Status: Acute Code(s): N17.9 - Acute kidney failure, unspecified (3) Dehydration: Continue IV fluids. Status: Acute Code(s): E86.0 - Dehydration (4) Hyponatremia: Improving. Status: Acute Code(s): E87.1 - Hypo-osmolality and hyponatremia Attestations Medical Necessity Statement*: This is an 79-year-old female with small bowel obstruction requiring continued inpatient treatment and monitoring. Coding Level of Care Code Acute Upholstery Parts Sorter for [facility] Fwd Diagnoses Small bowel obstruction K56.609 Acute kidney injury N17.9 Dehydration E86.0 Hyponatremia E87.1
--- NOTE | 2019-10-14 08:00 | XR_ITS ---
WS: [id number] Abdomen x-rays, Flat and upright 10/14/2019 Clinical Data: sbo Comparison: KUB, 10/04/2019, CT abdomen and pelvis, 10/13/2019 Findings: No free air is seen beneath the diaphragms. No abnormal intra-abdominal masses are seen. Th e dilated small bowel loops are filled with fluid and not evident on this examination. There are smal l bilateral effusions. There is a nasogastric tube which appears to end in the stomach. There is a le voscoliosis. The bladder has contrast within from the CT abdomen and pelvis. Bilateral hip arthroplas ties are noted. XR/XR abdomen min 2V [id number] Impression: 1. Fluid-filled bowel loops which were dilated on the CT abdomen and pelvis are not obvious on this examination. 2. Small bilateral pleural effusions.
[2019-10-14] MEDS: magnesium citrate Btl 296 mL PO (10:22)
--- NOTE | 2019-10-14 12:09 | PC.NURSE ---
Pt pulled out NG tube. Dr. Han notifed.
[2019-10-14] MEDS: enoxaparin 40 mg/0.4 mL Syringe SUBCUT (18:11)
[2019-10-14 18:14] LABS: Add Urine Microscopic? YES; Bilirubin Urine Neg (NEGATIVE); Blood Urine 3+ (Negative); Glucose Urine UA Norm (Normal); Ketones Urine 1+ (Negative); Leukocyte Esterase Urine Negative (Negative); Nitrate Urine Negative (Negative); Protein Urine Trace (Negative); Specific Gravity, Urine 1.015 (1.005-1.030); Urine Appearance Clear (CLEAR); Urine Color Yellow (Yellow); Urobilinogen Urine Norm (Negative); pH Urine 5 (5-7)
--- NOTE | 2019-10-14 18:20 | P.PN_ITS ---
Subjective Subjective: Interval history: Patient admitted to the hospital with bowel obstruction, has been doing well. Abdominal x-ray this morning showed no significant air-fluid levels. Her NG output is minimal. She denies any abdominal pain nausea or vomiting. Medications: Reviewed: Yes Vitals/I&O/Wt Last Vital Signs Temp 97.8 F 10/14/19 14:49 Pulse 113 H 10/14/19 14:49 Resp 20 H 10/14/19 14:49 BP 126/64 10/14/19 14:49 Pulse Ox 92 10/14/19 14:49 10/14/19 10/14/19 10/14/19 06:59 14:59 22:59 Intake Total 1150 / 1150 200 / 200 Output Total 1999 / 1999 450 / 450 Balance -850 / -850 -250 / -250 Weight last 48 hrs Weight 137 lb Physical Exam Narrative: EXAM NARRATIVE: Abdomen: Soft, nontender, nondistended, patient had pulled her NG tube out earlier Data : 10/14/19 05:15 10/14/19 05:15 A&P Assessment and plan (1) Small bowel obstruction: Patient had a large bowel movement with milk of molasses enema and magnesium citrate. I will therefore start her on a clear liquid diet. I have added Colace 100 mg p.o. twice daily and lactulose 15 cc p.o. twice daily to maintain aggressive bowel regimen. If she does well, hopefully she can be discharged home on GI soft diet Status: Acute Code(s): K56.609 - Unspecified intestinal obstruction, unspecified as to partial versus complete obstruction Attestations Medical Necessity Statement*: Small bowel obstruction requiring continued inpatient stay to ensure resolution Coding Level of Care Code Acute Box Sealing Machine Feeder for [facility] Diagnoses Small bowel obstruction K56.609
[2019-10-14 18:22] LABS: Amorphous Sediment Urine TRACE; Bacteria Urine 1+; Coarse Granular Casts Urine 0-4 /lpf; RBC Urine 0-4 /hpf (0-2); Squamous Epithelial Cell Urine 0-4 (0-5); WBC Urine 0-4 /hpf (0-5)
[2019-10-14 18:27] LABS: Add Urine Culture? No
[2019-10-14] MEDS: lactulose oral liq 20 gm/30 mL UDC 10 GM PO (19:33)
[2019-10-15] VITALS (21 sets, daily range): BP systolic 80–111; BP diastolic 40–67; PULSE 98–109; RESP 16–22; TEMP 36.4–36.8; O2SAT 91–99
[2019-10-15] MEDS: sodium chloride 0.9% 1,000 ML 999 ML IV (00:30)
[2019-10-15 06:23] LABS: Basophils % 0.1 %; Eosinophils % 0.1 %; Hematocrit 24.1 % (37.0-47.0); Hemoglobin 7.7 g/dL (11.5-15.3); Lymphocytes # 0.5 10^3/uL (0.8-4.8); Lymphocytes % 4.5 %; Mean Corpuscular Hemoglobin 25.6 pg (28.0-34.0); Mean Corpuscular Volume 80.1 fL (81-99); Mean Platelet Volume 9.7 fL (7.4-10.4); Monocytes # 0.8 10^3/uL (0.2-0.9); Monocytes % 7.7 %; Neutrophils % 86.7 %; Nucleated Red Blood Cells % 0 %; Platelet Count 368 10^3/cmm (130-400); Red Blood Count 3.01 10^6/uL (4.1-5.3); Red Cell Distribution Width 14.3 % (12.1-15.1); White Blood Count 10.4 10^3/uL (4.0-10.0)
[2019-10-15 06:42] LABS: Alanine Aminotransferase 13 U/L (0-33); Alkaline Phosphatase 59 IU/L (35-105); Aspartate Amino Transferase 18 U/L (0-32); Blood Urea Nitrogen 81 mg/dL (8-23); C Reactive Protein 127.6 mg/L (0.0-4.9); Carbon Dioxide 36 mmol/L (22-29); Chloride 88 mmol/L (98-107); Globulin 2.7 g/dL (1.3-4.6); Glucose 159 mg/dL (74-106); Sodium 133 mmol/L (136-145); Total Bilirubin 0.2 mg/dL (0.15-1.2); Total Protein 4.7 g/dL (6.6-8.7)
[2019-10-15] MEDS: sodium chlor 0.45% +KCl 20 mEq 20 MEQ/1,000 ML BAG 125 MEQ IV ×3 (06:45→20:16)
[2019-10-15] MEDS: lactulose oral liq 20 gm/30 mL UDC 10 GM PO (06:45)
--- NOTE | 2019-10-15 07:43 | XR_ITS ---
WS: [id number] ABDOMEN KUB CLINICAL INFORMATION: Abdominal pain COMPARISON: October 14, 2019 FINDINGS: Bilateral THAs. Distended loops of mainly small bowel in the pelvis. Fluid-filled small bowel loops. Air distended stomach in the right abdomen. Lumbar scoliosis convex left. Tortuous calcified abdomina l aorta. Residual contrast in the kidneys. XR/XR KUB portable [id number] Impression: 1. Air and fluid distended loops of small bowel consistent with small bowel ob struction as seen on the recent CT. This appears unchanged.
--- NOTE | 2019-10-15 08:23 | PM.PN ---
Subjective Subjective: Interval history: Patient had some low blood pressures overnight. No fevers or chills. She pulled her NG last night but is done okay with this. She has not had any nausea or vomiting. She has had a couple bowel movements. No blood in her stools. Medications: Reviewed: Yes Vitals/I&O/Wt Last Vital Signs Temp 98.0 F 10/15/19 07:10 Pulse 105 H 10/15/19 07:10 Resp 18 10/15/19 07:10 BP 96/62 10/15/19 07:10 Pulse Ox 92 10/15/19 07:10 10/14/19 10/15/19 10/15/19 22:59 06:59 14:59 Intake Total 200 / 1420 220 / 1420 Output Total 650 / 650 Balance -450 / 770 220 / 770 Weight last 48 hrs Weight 137 lb Physical Exam Narrative: EXAM NARRATIVE: General: No acute distress, Alert. Well nourished. Heart: Regular rate and rhythm. No murmurs, rubs or gallops. Normal capillary refill. Lungs: Clear to auscultation. No wheezes, rhonchi or rales. Abdomen: Positive bowel sounds. Non-tender, non-distended. No hepatosplenomegaly. No gaurding. Extremities: No clubbing, cyanosis, or edema. Negative Elizabeth's Data : 10/15/19 05:45 10/15/19 05:45 A&P Assessment and plan (1) Small bowel obstruction: -She is doing better from the standpoint. Pulled NG tube last night but tolerating well.. Status: Acute Code(s): K56.609 - Unspecified intestinal obstruction, unspecified as to partial versus complete obstruction (2) Acute kidney injury: -Improving some this morning. Continue with gentle IV fluids. BUN is up I suspect she is having some GI bleeding this morning. Status: Acute Code(s): N17.9 - Acute kidney failure, unspecified (3) Dehydration: Continue IV fluids. Status: Acute Code(s): E86.0 - Dehydration (4) Hyponatremia: Improving. Status: Acute Code(s): E87.1 - Hypo-osmolality and hyponatremia (5) GI bleed: -Patient was hypotensive overnight. Responded to IV fluids. Hemoglobin is down this morning to 7.70. Suspect a GI bleed. Will place her on telemetry and transfuse 2 units this morning. Continue to monitor closely. May transfer to the ICU. Status: Acute Code(s): K92.2 - Gastrointestinal hemorrhage, unspecified Attestations Medical Necessity Statement*: 79-year-old female with small bowel obstruction and now GI bleed requiring continued inpatient monitoring hospitalization. Coding Level of Care Code Acute Review Assistant for [facility] Fwd Diagnoses Small bowel obstruction K56.609 Acute kidney injury N17.9 Dehydration E86.0 Hyponatremia E87.1 GI bleed K92.2
[2019-10-15] MEDS: pantoprazole 40 mg SDV IVP ×2 (08:57→18:52)
[2019-10-15] MEDS: docusate sodium 100 mg Capsule PO (08:57)
[2019-10-15] MEDS: morphine 4 mg/mL SDV 1 mL 2 MG IVP ×2 (11:06→15:48)
--- NOTE | 2019-10-15 11:10 | XR_ITS ---
WS: [id number] ABDOMEN SERIES Supine and upright views of the abdomen CLINICAL INFORMATION: Abdominal pain, history of SBO COMPARISON: None. FINDINGS: Bilateral THAs. Air distended stomach in the midline and right abdomen. Air and fluid distended loops of small bowel appears unchanged. No free air on the upright view. Small bilateral pleural effusions . Lumbar scoliosis. Aortic calcification. Residual contrast in the kidneys. XR/XR abdomen min 2V [id number] IMPRESSION: Air and fluid distended loops of small bowel consistent with small bowel obstru ction unchanged
[2019-10-15] MEDS: sodium chloride 0.9% 100 ML 50 ML ×2 (11:48→15:52)
--- NOTE | 2019-10-15 16:44 | PM.PN ---
Subjective Subjective: Interval history: Patient had a rough night apparently was delirious and subsequently had an episode of GI bleed with hypotension. Her hemoglobin was down to 7 this morning. She complains of abdominal pain Vitals/I&O/Wt Last Vital Signs Temp 98.0 F 10/15/19 15:24 Pulse 102 H 10/15/19 15:24 Resp 18 10/15/19 15:48 BP 111/64 10/15/19 15:24 Pulse Ox 96 10/15/19 15:24 10/15/19 10/15/19 10/15/19 06:59 14:59 22:59 Intake Total 220 / 1420 1200 / 1550 350 / 1550 Balance 220 / 770 1200 / 1550 350 / 1550 Physical Exam Narrative: EXAM NARRATIVE: Abdomen: Soft, distended, minimally tender, no guarding or rigidity is Dr. Forte consulted me on needs a dialysis catheter to the nurse Urinary Catheter Management^: Mazariegos: Cath Placed During This Visit: no Data : 10/15/19 05:45 10/15/19 05:45 A&P Assessment and plan (1) Small bowel obstruction: Patient has now developed abdominal distention, we will therefore obtain a abdomen 2 view series.will keep her on clears/ice chips for now Status: Acute Code(s): K56.609 - Unspecified intestinal obstruction, unspecified as to partial versus complete obstruction (2) GI bleed: Transfuse PRBC as per Dr. Craven Serial hemoglobin check Start Protonix for GI prophylaxis. If hemoglobin continues to trend down then will plan for bowel prep with EGD and colonoscopy tomorrow Status: Acute Code(s): K92.2 - Gastrointestinal hemorrhage, unspecified Attestations Medical Necessity Statement*: Small bowel obstruction, GI bleed Coding Level of Care Code Acute Windchill Administrator for [facility] Fwd Diagnoses Small bowel obstruction K56.609 GI bleed K92.2
--- NOTE | 2019-10-15 17:20 | XRR_ITS ---
PROCEDURE INFORMATION: Exam: XR Chest, 1 View Exam date and time: 10/15/2019 5:37 PM Age: 79 years old Clinical indication: Device placement; Ng tube; Additional info: Ng placement TECHNIQUE: Imaging protocol: XR of the chest Views: 1 view. COMPARISON: CR XR chest 1V portable [id number] 10/13/2019 2:17 PM FINDINGS: Tubes, catheters and devices: NG tube placement with tip in the mid stomach. Lungs: Bibasilar atelectasis. Pleural space: Moderate-sized bilateral pleural effusions. No pneumothorax. Heart/Mediastinum: Unremarkable. No cardiomegaly. Bones/joints: Unremarkable. XR/XR chest 1V portable [id number] IMPRESSION: 1. NG tube in the mid stomach. 2. Slightly worsened pleural effusions and basilar atelectasis.
[2019-10-15 17:21] LABS: Basophils % 0.1 %; Eosinophils # 0.1 10^3/uL (0.0-0.8); Eosinophils % 0.5 %; Hematocrit 32.4 % (37.0-47.0); Hemoglobin 10.7 g/dL (11.5-15.3); Lymphocytes # 0.6 10^3/uL (0.8-4.8); Lymphocytes % 5.9 %; Mean Corpuscular Hemoglobin 27.3 pg (28.0-34.0); Mean Corpuscular Volume 82.7 fL (81-99); Mean Platelet Volume 9.7 fL (7.4-10.4); Monocytes # 0.7 10^3/uL (0.2-0.9); Neutrophils % 85.7 %; Nucleated Red Blood Cells % 0 %; Platelet Count 328 10^3/cmm (130-400); Red Blood Count 3.92 10^6/uL (4.1-5.3); Red Cell Distribution Width 14.4 % (12.1-15.1); White Blood Count 10.5 10^3/uL (4.0-10.0)
--- NOTE | 2019-10-15 19:02 | PC.NURSE ---
1800 lactulose and colace held per Dr. Han and Dr. Craven request d/t NG tube.
[2019-10-16] VITALS (10 sets, daily range): BP systolic 94–123; BP diastolic 62–69; PULSE 88–109; RESP 16–22; TEMP 36.3–36.7; O2SAT 91–96
[2019-10-16] MEDS: morphine 4 mg/mL SDV 1 mL 2 MG IVP ×3 (00:28→13:30)
[2019-10-16] MEDS: sodium chlor 0.45% +KCl 20 mEq 20 MEQ/1,000 ML BAG 125 MEQ IV (04:36)
--- NOTE | 2019-10-16 05:48 | PC.NURSE ---
Asked patient and family if they felt like she could stand for a abdominal x-ray. Patient stated she would be more comfortable if they could do the x-ray portable as she is not feeling very good. Patient daughter agreed. portable abdominal x-ray completed at this time. Patient tolerated well.
[2019-10-16 05:53] LABS: Basophils % 0.1 %; Eosinophils # 0.1 10^3/uL (0.0-0.8); Eosinophils % 0.8 %; Hematocrit 29.3 % (37.0-47.0); Hemoglobin 9.5 g/dL (11.5-15.3); Lymphocytes # 0.6 10^3/uL (0.8-4.8); Lymphocytes % 7.6 %; Mean Corpuscular HGB Conc 32.4 g/dL (30.0-36.0); Mean Corpuscular Hemoglobin 26.4 pg (28.0-34.0); Mean Corpuscular Volume 81.4 fL (81-99); Mean Platelet Volume 9.9 fL (7.4-10.4); Monocytes # 0.6 10^3/uL (0.2-0.9); Monocytes % 7.9 %; Neutrophils # 6.5 10^3/uL (1.8-7.7); Neutrophils % 82.8 %; Nucleated Red Blood Cells % 0 %; Platelet Count 298 10^3/cmm (130-400); Red Cell Distribution Width 14.6 % (12.1-15.1); White Blood Count 7.8 10^3/uL (4.0-10.0)
--- NOTE | 2019-10-16 06:00 | XR_ITS ---
WS: [id number] ABDOMEN SERIES Supine and upright views of the abdomen CLINICAL INFORMATION: Small bowel obstruction COMPARISON: October 15, 2019 FINDINGS: Bilateral THAs. Lumbar scoliosis convex left. Aortic calcification. Enteric tube with tip in the stom ach. Small bilateral pleural effusions. Distended small bowel loops appear slightly improved today. S tomclemente is decompressed. XR/XR abdomen min 2V [id number] IMPRESSION: Small bowel obstruction appears slightly improved today with improved small bow el distention.
[2019-10-16 06:25] LABS: Alanine Aminotransferase 13 U/L (0-33); Albumin Level 1.8 g/dL (3.5-5.2); Alkaline Phosphatase 49 IU/L (35-105); Anion Gap 12.8 (5-19); Aspartate Amino Transferase 22 U/L (0-32); Blood Urea Nitrogen 65 mg/dL (8-23); C Reactive Protein 123.6 mg/L (0.0-4.9); Carbon Dioxide 31 mmol/L (22-29); Chloride 90 mmol/L (98-107); Globulin 2.9 g/dL (1.3-4.6); Glucose 93 mg/dL (74-106); Potassium 4.8 mmol/L (3.5-5.1); Sodium 129 mmol/L (136-145); Total Bilirubin 0.3 mg/dL (0.15-1.2); Total Protein 4.7 g/dL (6.6-8.7)
[2019-10-16] MEDS: pantoprazole 40 mg SDV IVP ×2 (07:30→20:32)
--- NOTE | 2019-10-16 13:21 | PC.CHAP ---
Pastoral Care Encounter/Spiritual Assessment Type of Contact [] Declined neurology nurse visit [] Patient/Family/Request visit [] Outpatient visit [] Follow-up visit [] Physician referral [] Code/Alert [x] Routine visit [] Staff referral [] Actively dying [] Patient sleeping [] Family support [] [] Out of room [] Palliative care [] [] Receiving care in room [] Pre-surgical visit [] Trauma [] Long length of stay [] ICU visit [] Other: Relational/Emotional Strength [x] Patient feels connected with others/family/visitors/staff [] Distress [] Loneliness/isolation [] Abandonment Spirituality of Patient [x] Person of Marilyn [] Attends Yazdanism of their Marilyn [x] Believes in Prayer [] Reads Bible or Methodist materials [] There are Spiritual issues to be addressed Security System Engineer Interventions [x] Prayer [x] Active listening [x] Non-anxious presence [x] Spiritual/emotional support [] Crisis/trauma care [] Spiritual counseling [] Bereavement support [] Provided bereavement packet [] Provided Bible/devotional materials [] Provided toy/stuffed animal, coloring book to patient or family member [] Provided Communion [] Anointing/[place] [] Salvation [x] Completed spiritual assessment [] Other: Impact on Illness or Injury [] Angry [] Fearful [] Anxious [] Often cries [] Exhaustion [] Unable to work [] Unable to attend druze [] Unable to walk/stand [] Unable to read [] Unable to drive [] Unable to eat/drink [] Unable to sleep [] Unable to be with family [] Patient intubated [] Other: Summary Patient was visiting with family and enjoyed talking and prayer. Time spent with patient 5 minutes
--- NOTE | 2019-10-16 14:32 | P.PN_ITS ---
Subjective Subjective: Interval history: Patient seems to be doing much better this morning. NG tube was placed yesterday afternoon and she has had quite a bit out. Abdomen is much less distended. She is not passing any gas or stools at this time. No fevers or chills. No chest pain. She was able to get up to chair today and sit. She stood for a while as well. Abdominal pain overall is improved. Medications: Reviewed: Yes Vitals/I&O/Wt Last Vital Signs Temp 97.9 F 10/16/19 11:38 Pulse 88 10/16/19 13:34 Resp 18 10/16/19 13:30 BP 95/62 10/16/19 11:38 Pulse Ox 92 10/16/19 13:34 10/15/19 10/16/19 10/16/19 22:59 06:59 14:59 Intake Total 997 / 3478.25 1281.25 / 3478.25 580 / 580 Output Total 1500 / 2900 1400 / 2900 950 / 950 Balance -503 / 578.25 -118.75 / 578.25 -370 / -370 Physical Exam Narrative: EXAM NARRATIVE: General: No acute distress, Alert. Well nourished. Heart: Regular rate and rhythm. No murmurs, rubs or gallops. Normal capillary refill. Lungs: Clear to auscultation. No wheezes, rhonchi or rales. Abdomen: Positive bowel sounds. Non-tender, mildly distended. No hepatosplenomegaly. No gaurding. Extremities: No clubbing, cyanosis, or edema. Negative Elizabeth's Urinary Catheter Management^: Mazariegos: Cath Placed During This Visit: no Data : 10/16/19 05:00 10/16/19 05:00 A&P Assessment and plan (1) Small bowel obstruction: -She is doing better from the standpoint. Had a rough day yesterday but is better with the NG tube back in place. Still not passing gas or significant stools. We will go ahead and try an enema to see if we can help get her colon cleaned out.. Status: Acute Code(s): K56.609 - Unspecified intestinal obstruction, unspecified as to partial versus complete obstruction (2) Acute kidney injury: -Improving some this morning. Kidney functions are better. She is having some swelling. I suspect she is a little volume overloaded with the IV fluids and blood that she received yesterday. We will Hep-Lock her fluids for now. M ay need some Lasix.. Status: Acute Code(s): N17.9 - Acute kidney failure, unspecified (3) Dehydration: Resolved. Status: Acute Code(s): E86.0 - Dehydration (4) Hyponatremia: Continue to monitor Status: Acute Code(s): E87.1 - Hypo-osmolality and hyponatremia (5) GI bleed: -Stable at this time. We will continue with SCDs. Continues to stay off of the Lovenox for now. Continue with Protonix twice daily. Status: Acute Code(s): K92.2 - Gastrointestinal hemorrhage, unspecified Attestations Medical Necessity Statement*: This is an 79-year-old female with small bowel obstruction and GI bleed requiring continued inpatient monitoring hospital ization. Coding Level of Care Code Acute Occupational Analyst for [facility] Diagnoses Small bowel obstruction K56.609 Acute kidney injury N17.9 Dehydration E86.0 Hyponatremia E87.1 GI bleed K92.2
--- NOTE | 2019-10-16 14:45 | PC.SOCIAL ---
Pg 2 of IMM Pg 2 of IMM was explained to patient and her daughter, patient requested for her daughter to sign form, copy was provided and form placed in chart. They verbalized understanding and had no questions.
--- NOTE | 2019-10-16 18:52 | PM.PN ---
Subjective Subjective: Interval history: Patient looks a lot better today, no flatus or BM. Her abdomen is less distended and she denies any significant abdominal pain Vitals/I&O/Wt Last Vital Signs Temp 97.8 F 10/16/19 15:03 Pulse 96 10/16/19 15:03 Resp 22 H 10/16/19 15:03 BP 110/66 10/16/19 15:03 Pulse Ox 95 10/16/19 15:03 10/16/19 10/16/19 10/16/19 06:59 14:59 22:59 Intake Total 1281.25 / 3478.25 580 / 940 360 / 940 Output Total 1400 / 2900 950 / 1750 800 / 1750 Balance -118.75 / 578.25 -370 / -810 -440 / -810 Physical Exam Narrative: EXAM NARRATIVE: Abdomen: Soft, less distended, nontender, NG tube to low intermittent suction with bilious output Urinary Catheter Management^: Mazariegos: Cath Placed During This Visit: no Data : 10/16/19 05:00 10/16/19 05:00 A&P Assessment and plan (1) Small bowel obstruction: Continue NG tube to low intermittent suction Abdominal series in the morning Continue IV fluids Continue Protonix Enema later today Spoke to patient's daughter today for who has come from [place]. Discussed that her hemoglobin is stable and currently the primary concern is small bowel obstruction. We will at least wait 48 to 72 hours to try conservative measures and if that fails we will then proceed with diagnostic laparoscopy for small bowel obstruction. If her small bowel obstruction would resolve with conservative measures then we will repeat her blood work in couple of weeks and if she continues to be anemic then we can plan for an outpatient EGD and colonoscopy. At this point with a bowel obstruction it is impossible to do a bowel prep though we will proceed with a panendoscopy without prep if she has significant GI bleed. Status: Acute Code(s): K56.609 - Unspecified intestinal obstruction, unspecified as to partial versus complete obstruction Attestations Medical Necessity Statement*: Patient will need continued inpatient status for resolution of obstruction Coding Level of Care Code Acute Automobile Glass Technician for [facility] Diagnoses Small bowel obstruction K56.609
[2019-10-16] MEDS: lactulose oral liq 20 gm/30 mL UDC 10 GM PO (19:47)
[2019-10-16] MEDS: docusate sodium 100 mg Capsule PO (19:48)
--- NOTE | 2019-10-16 20:26 | PC.NURSE ---
pt up to bsc with max assist return of mom enema and small to med amount of formed soft stool noted. unable to assess color due to enema.
[2019-10-16] MEDS: acetaminophen 650 mg/20.3 mL UDC PO (22:58)
[2019-10-17] VITALS (8 sets, daily range): BP systolic 94–128; BP diastolic 52–63; PULSE 96–110; RESP 16–20; TEMP 36.6–37; O2SAT 89–96
[2019-10-17 04:12] LABS: Basophils % 0.1 %; Eosinophils % 0.5 %; Hematocrit 29.4 % (37.0-47.0); Hemoglobin 9.4 g/dL (11.5-15.3); Lymphocytes # 0.6 10^3/uL (0.8-4.8); Lymphocytes % 7.3 %; Mean Corpuscular Hemoglobin 26.4 pg (28.0-34.0); Mean Corpuscular Volume 82.6 fL (81-99); Mean Platelet Volume 10.1 fL (7.4-10.4); Monocytes # 0.6 10^3/uL (0.2-0.9); Neutrophils # 6.7 10^3/uL (1.8-7.7); Neutrophils % 83.6 %; Nucleated Red Blood Cells % 0 %; Platelet Count 329 10^3/cmm (130-400); Red Blood Count 3.56 10^6/uL (4.1-5.3); Red Cell Distribution Width 14.7 % (12.1-15.1); White Blood Count 8.1 10^3/uL (4.0-10.0)
[2019-10-17 04:39] LABS: Alanine Aminotransferase 14 U/L (0-33); Albumin Level 1.9 g/dL (3.5-5.2); Alkaline Phosphatase 52 IU/L (35-105); Anion Gap 16.6 (5-19); Aspartate Amino Transferase 26 U/L (0-32); Blood Urea Nitrogen 45 mg/dL (8-23); Calcium 7.3 mg/dL (8.5-10.5); Carbon Dioxide 29 mmol/L (22-29); Chloride 95 mmol/L (98-107); Globulin 2.9 g/dL (1.3-4.6); Glucose 79 mg/dL (74-106); Potassium 4.6 mmol/L (3.5-5.1); Sodium 136 mmol/L (136-145); Total Bilirubin 0.3 mg/dL (0.15-1.2); Total Protein 4.8 g/dL (6.6-8.7)
[2019-10-17] MEDS: lactulose oral liq 20 gm/30 mL UDC 10 GM PO ×2 (06:26→18:38)
--- NOTE | 2019-10-17 07:13 | XR_ITS ---
WS: [id number] CHEST XRAY TECHNIQUE: Portable chest. CLINICAL INFORMATION: pleural effusion COMPARISON: October 15, 2019 FINDINGS: Enteric tube with sidehole just in proximal stomach. Heart: Normal cardiac silhouette. Tortuous calcified thoracic aorta. Lungs: Chronic emphysematous changes. Small bilateral pleural effusions. Bibasilar atelectasis. Bones: Normal visualized bony structures. XR/XR chest 1V portable [id number] IMPRESSION: 1. Enteric tube with tip below the diaphragm partially visualized. Sidehole ju st in proximal stomach. 2. Small bilateral pleural effusions with bibasilar atelectasis. This is uncha nged since October 15, 2019 3. Tortuous calcified thoracic aorta.
--- NOTE | 2019-10-17 07:13 | XR_ITS ---
WS: [id number] ABDOMEN KUB CLINICAL INFORMATION: Renal/ureteral calculi. COMPARISON: October 16, 2019 FINDINGS: Enteric tube with tip in the proximal stomach. Bilateral THAs. Lumbar scoliosis convex left. Distende d small bowel loops in the midabdomen and appears slightly improved compared to yesterday. No other s ignificant changes. XR/XR KUB portable [id number] Impression: 1. Enteric tube with tip in proximal stomach. 2. Distended small bowel loops in the midabdomen appears slightly improved com pared to October 16, 2019
[2019-10-17] MEDS: FUROsemide 10 mg/mL SDV 2mL 20 MG IVP (07:56)
--- NOTE | 2019-10-17 09:03 | XR_ITS ---
WS: [id number] Portable AP upright chest, 10/17/2019, 0936 hours Clinical Data: verify picc placement and will call when needed Comparison: Portable chest, 10/17/2019, 0744 hours. Findings: The right PICC line is in good position ending in the superior vena cava. No pneumothorax i s seen. The bilateral pleural effusions and nasogastric tube are seen. XR/XR chest 1V [id number] Impression: Satisfactory placement of right PICC line.
[2019-10-17] MEDS: docusate sodium 100 mg Capsule PO ×2 (10:01→18:40)
[2019-10-17] MEDS: cefTRIAXone 1,000 MG in sodium chloride 0.9% (plus) 50 ML 100 MG IV (10:01)
[2019-10-17] MEDS: pantoprazole 40 mg SDV IVP ×2 (10:05→20:45)
--- NOTE | 2019-10-17 11:16 | PC.NURSE ---
IV IN LEFT HAND REMOVED AFTER PICC LINE PLACED LT HAND SLIGHTLY SWOLLEN CLEAN AND DRY PT TOLERATED WELL
--- NOTE | 2019-10-17 13:29 | P.PN_ITS ---
Subjective Subjective: Interval history: Patient looks a lot better today, had a small bowel movement yesterday with her enema. She is noticing a lot more bowel sounds. Feel like she is got some gas the pass. Her abdomen is less distended and she denies any significant abdominal pain. Having a lot of sinus drainage now after the NG tube was placed. Coughing quite a bit more this morning. Is gotten a little hypoxic. No fevers. Medications: Reviewed: Yes Vitals/I&O/Wt Last Vital Signs Temp 98.0 F 10/17/19 11:20 Pulse 99 10/17/19 11:20 Resp 18 10/17/19 11:20 BP 94/52 10/17/19 11:20 Pulse Ox 94 10/17/19 11:20 10/16/19 10/17/19 10/17/19 22:59 06:59 14:59 Intake Total 390 / 1090 120 / 1090 170 / 170 Output Total 1750 / 3300 600 / 3300 500 / 500 Balance -1360 / -2210 -480 / -2210 -330 / -330 Physical Exam Narrative: EXAM NARRATIVE: General: No acute distress, Alert. Well nourished. Heart: Regular rate and rhythm. No murmurs, rubs or gallops. Normal capillary refill. Lungs: Lungs a bit diminished in the bases. No specific crackles appreciated. No wheezes or rhonchi. Abdomen: Positive bowel sounds. Non-tender, mildly distended. No hepatosplenomegaly. No gaurding. Extremities: No clubbing, cyanosis, or edema. Negative Elizabeth's Urinary Catheter Management^: Mazariegos: Cath Placed During This Visit: no Data : 10/17/19 03:20 10/17/19 03:20 Other Labs: Abnormal lab results 10/17/19 10/17/19 Range/Units 03:20 03:20 RBC 3.56 L (4.1-5.3) 10^6/uL Hgb 9.4 L (11.5-15.3) g/dL Hct 29.4 L (37.0-47.0) % MCH 26.4 L (28.0-34.0) pg Lymph # (Auto) 0.6 L (0.8-4.8) 10^3/uL Chloride 95 L (98-107) mmol/L BUN 45 H (8-23) mg/dL Creatinine 1.1 H (0.5-0.9) mg/dL Calcium 7.3 L (8.5-10.5) mg/dL Total Protein 4.8 L (6.6-8.7) g/dL Albumin 1.9 L (3.5-5.2) g/dL A&P Assessment and plan (1) Small bowel obstruction: -Still has NG in. -Anticipate that this is from an adhesion. Still waiting for it to resolve. -Appreciate surgery's continued management. -Place PICC line today and start TPN -Hyponatremia has improved -Hypoalbuminemia -hopeful this will improve with TPN. -Suspect we are little fluid overloaded and will start 1 dose of IV Lasix today. -Small pleural effusions. -Continue with incentive spirometry and encourage her to continue to get up and ambulate. Status: Acute Code(s): K56.609 - Unspecified intestinal obstruction, unspecified as to partial versus complete obstruction (2) Acute kidney injury: -Improving some this morning. Kidney functions are better. She is having some swelling. 1 dose of Lasix as mentioned above. Status: Acute Code(s): N17.9 - Acute kidney failure, unspecified (3) Dehydration: Resolved. Status: Acute Code(s): E86.0 - Dehydration (4) Hyponatremia: Continue to monitor Status: Acute Code(s): E87.1 - Hypo-osmolality and hyponatremia (5) GI bleed: -Stable at this time. We will continue with SCDs. Continues to stay off of the Lovenox for now. Continue with Protonix twice daily. Status: Acute Code(s): K92.2 - Gastrointestinal hemorrhage, unspecified Attestations Medical Necessity Statement*: 79-year-old female with small bowel obstruction requiring continued inpatient monitoring and treatment. Coding Level of Care Code Acute Major League Baseball Umpire for [facility] Fwd Diagnoses Small bowel obstruction K56.609 Acute kidney injury N17.9 Dehydration E86.0 Hyponatremia E87.1 GI bleed K92.2
--- NOTE | 2019-10-17 13:31 | P.PN_ITS ---
Subjective Subjective: Interval history: Patient denies significant abdominal pain, no nausea or vomiting, tolerating clears. She had a bowel movement with enema yesterday Vitals/I&O/Wt Last Vital Signs Temp 98.0 F 10/17/19 11:20 Pulse 99 10/17/19 11:20 Resp 18 10/17/19 11:20 BP 94/52 10/17/19 11:20 Pulse Ox 94 10/17/19 11:20 10/16/19 10/17/19 10/17/19 22:59 06:59 14:59 Intake Total 390 / 1090 120 / 1090 170 / 170 Output Total 1750 / 3300 600 / 3300 500 / 500 Balance -1360 / -2210 -480 / -2210 -330 / -330 Physical Exam Narrative: EXAM NARRATIVE: Abdomen: Soft, minimally distended, nontender Urinary Catheter Management^: Mazariegos: Cath Placed During This Visit: no Data : 10/17/19 03:20 10/17/19 03:20 A&P Assessment and plan (1) Small bowel obstruction: Continue clear liquid diet Clamp NG tube Considering the fact that she failed initial attempt at conservative measures I will leave the NG tube in for at least 24 hours Abdominal series in the morning tomorrow Daily labs Status: Acute Code(s): K56.609 - Unspecified intestinal obstruction, unspecified as to partial versus complete obstruction Attestations Medical Necessity Statement*: Small bowel obstruction requiring continued inpatient stay to ensure resolution Coding Level of Care Code Acute Special Investigation Unit Investigator for [facility] Diagnoses Small bowel obstruction K56.609
--- NOTE | 2019-10-17 19:26 | PC.NURSE ---
PPN PPN increased to 32 at this time.
[2019-10-18] MEDS: acetaminophen 650 mg/20.3 mL UDC PO ×2 (02:28→14:15)
[2019-10-18 04:00] VITALS: BP 105/63; PULSE 103; RESP 18; TEMP 36.8; O2SAT 95
--- NOTE | 2019-10-18 06:32 | XRR_ITS ---
PROCEDURE INFORMATION: Exam: XR Abdomen, 2 Views Exam date and time: 10/18/2019 5:24 AM Age: 79 years old Clinical indication: Condition or disease; Other: Sbo; Prior surgery; Patient HX: Ng tube TECHNIQUE: Imaging protocol: XR of the abdomen. Frontal supine and upright views of the abdomen. Views: 2 Views. COMPARISON: CR XR KUB portable [id number] 10/17/2019 7:41 AM FINDINGS: Tubes, catheters and devices: The enteric tube terminates in the gastric body. Pleural space: Small bilateral pleural effusions. Gastrointestinal tract: Dilated small bowel loops remain, compatible with small bowel obstruction. Intraperitoneal space: Normal. No free air. Bones/joints: Bilateral hip arthroplasty. XR/XR abdomen min 2V [id number] IMPRESSION: 1. The enteric tube terminates in the gastric body. 2. Dilated small bowel loops remain, compatible with small bowel obstruction.
[2019-10-18 07:37] VITALS: BP 103/58; PULSE 100; RESP 18; TEMP 36.7; O2SAT 94
[2019-10-18] MEDS: cefTRIAXone 1,000 MG in sodium chloride 0.9% (plus) 50 ML 100 MG IV (07:47)
[2019-10-18] MEDS: lactulose oral liq 20 gm/30 mL UDC 10 GM PO (09:21)
[2019-10-18] MEDS: pantoprazole 40 mg SDV IVP ×2 (09:21→20:39)
[2019-10-18] MEDS: docusate sodium 100 mg Capsule PO ×2 (09:21→17:18)
--- NOTE | 2019-10-18 10:39 | PM.PN ---
Subjective Subjective: Interval history: History and physical reviewed. Patient reports she does not like the NG. She reports no bowel movement. Not passing gas. Medications: Reviewed: Yes Vitals/I&O/Wt Last Vital Signs Temp 98.1 F 10/18/19 07:37 Pulse 100 10/18/19 07:37 Resp 18 10/18/19 07:37 BP 103/58 10/18/19 07:37 Pulse Ox 94 10/18/19 07:37 10/17/19 10/18/19 10/18/19 22:59 06:59 14:59 Intake Total 125 / 775 240 / 240 Output Total 1025 / 1525 Balance -1025 / -875 125 / -750 240 / 240 Physical Exam Narrative: EXAM NARRATIVE: General exam no apparent distress Cardiovascular regular rate and rhythm without murmur Lungs clear Abdomen hypoactive bowel sounds Extremities no cyanosis clubbing or edema Urinary Catheter Management^: Mazariegos: Cath Placed During This Visit: no Data : 10/17/19 03:20 10/17/19 03:20 A&P Assessment and plan (1) Small bowel obstruction: Continue NG Appreciate surgical management Continue TPN If does not improve surgery is being considered Status: Acute Code(s): K56.609 - Unspecified intestinal obstruction, unspecified as to partial versus complete obstruction (2) Acute kidney injury: Repeat laboratory tomorrow Status: Acute Code(s): N17.9 - Acute kidney failure, unspecified (3) Dehydration: Resolved. Status: Acute Code(s): E86.0 - Dehydration (4) Hyponatremia: Last laboratory showed resolution Status: Acute Code(s): E87.1 - Hypo-osmolality and hyponatremia (5) GI bleed: Hemoglobin is stable. Continue Protonix. Status: Acute Code(s): K92.2 - Gastrointestinal hemorrhage, unspecified Attestations Medical Necessity Statement*: Needs continued hospital stay for management of partial small bowel obstruction, possible need for surgery if she does not improve. Coding Level of Care Code Acute Electrical Electronics Engineer for [facility] Fwd Diagnoses Small bowel obstruction K56.609 Acute kidney injury N17.9 Dehydration E86.0 Hyponatremia E87.1 GI bleed K92.2
--- NOTE | 2019-10-18 11:12 | PM.PN ---
Subjective Subjective: Interval history: Patient has not had any further bowel movements and has only been passing small amount of flatus. Complains of some cramping right lower quadrant pain. She has been on a clear liquid diet but for some reason the NG tube was not clamped yesterday Vitals/I&O/Wt Last Vital Signs Temp 98.1 F 10/18/19 07:37 Pulse 100 10/18/19 07:37 Resp 18 10/18/19 07:37 BP 103/58 10/18/19 07:37 Pulse Ox 94 10/18/19 07:37 10/17/19 10/18/19 10/18/19 22:59 06:59 14:59 Intake Total 125 / 775 240 / 240 Output Total 1025 / 1525 Balance -1025 / -750 125 / -750 240 / 240 Physical Exam Narrative: EXAM NARRATIVE: Abdomen: Soft, non-tender, minimally distended. NG tube is clamped Urinary Catheter Management^: Mazariegos: Cath Placed During This Visit: no Data : 10/17/19 03:20 10/17/19 03:20 A&P Assessment and plan (1) Small bowel obstruction: Patient is currently hemodynamically stable with no evidence of peritonitis. We will do a milk of molasses enema today. The abdominal x-ray shows continued small bowel obstruction. Continue TPN Ambulate with physical therapy Protonix for GI prophylaxis Clamp NG tube If there is no significant improvement by tomorrow then we will have to consider diagnostic laparoscopy possible laparotomy since she has been on bowel rest for about 72 hours. Status: Acute Code(s): K56.609 - Unspecified intestinal obstruction, unspecified as to partial versus complete obstruction Attestations Medical Necessity Statement*: Small bowel obstruction requiring continued inpatient stay to ensure resolution Coding Level of Care Code Acute Humanities Professor for [facility]w Diagnoses Small bowel obstruction K56.609
[2019-10-18 11:53] VITALS: BP 104/71; PULSE 101; RESP 20; TEMP 36.6; O2SAT 95
[2019-10-18 13:08] VITALS: PULSE 101; O2SAT 95
--- NOTE | 2019-10-18 13:45 | PC.NURSE ---
Milk and Molasses enema given to patient. Pt unable to hold enema. No results noted.
--- NOTE | 2019-10-18 14:30 | PC.NURSE ---
Pt refused soap suds enema at this time.
[2019-10-18 15:36] VITALS: BP 115/68; PULSE 95; RESP 18; TEMP 36.6; O2SAT 94
--- NOTE | 2019-10-18 16:14 | DCPLANNER ---
Pg 2 of IM updated and reviewed with pt and family. No questions, copy provided.
[2019-10-18 19:54] VITALS: BP 112/61; PULSE 101; RESP 20; TEMP 36.8; O2SAT 93
[2019-10-19] VITALS (40 sets, daily range): BP systolic 66–149; BP diastolic 35–75; PULSE 86–112; RESP 13–44; TEMP 36.7–37.2; O2SAT 92–100
[2019-10-19 05:36] LABS: Basophils % 0.1 %; Eosinophils # 0.1 10^3/uL (0.0-0.8); Eosinophils % 0.8 %; Lymphocytes # 0.7 10^3/uL (0.8-4.8); Lymphocytes % 8.3 %; Mean Corpuscular Hemoglobin 25.9 pg (28.0-34.0); Mean Corpuscular Volume 83.3 fL (81-99); Mean Platelet Volume 9.3 fL (7.4-10.4); Monocytes # 0.7 10^3/uL (0.2-0.9); Monocytes % 7.5 %; Neutrophils # 7.2 10^3/uL (1.8-7.7); Neutrophils % 82.8 %; Nucleated Red Blood Cells % 0 %; Platelet Count 277 10^3/cmm (130-400); Red Blood Count 3.48 10^6/uL (4.1-5.3); Red Cell Distribution Width 14.8 % (12.1-15.1); White Blood Count 8.7 10^3/uL (4.0-10.0)
[2019-10-19 05:50] LABS: Anion Gap 11.8 (5-19); Blood Urea Nitrogen 25 mg/dL (8-23); Calcium 7.6 mg/dL (8.5-10.5); Carbon Dioxide 31 mmol/L (22-29); Chloride 96 mmol/L (98-107); Glucose 149 mg/dL (74-106); Osmolality Calculated 280 mOsm/kg (285-295); Potassium 3.8 mmol/L (3.5-5.1); Sodium 135 mmol/L (136-145)
--- NOTE | 2019-10-19 06:11 | PC.NURSE ---
SHIFT SUMMARY Has rested for intervals tonight. NPO since midnight for OR this am. Using mouth swabs for dry mouth. NG tube intact and has drained well per LIS. Had some nausea at beginning of shift but then no further c/o. Abd is distended and tenderness with palpation. Bowel sounds are present but are hypoactive. Says not passing any gas and is sure hoping to feel better after surgery is done. Mazariegos draining well. IV TPN infusing at 42ml/hr rate. Has had Chlorhexadine scrub this morning and awaiting OR
--- NOTE | 2019-10-19 07:32 | ANES.PREANE2 ---
Pre-Anesthetic Assessment Pre-Anesthetic Assessment: Height/Weight: Height 1.65 m Weight 62.142 kg Temp Pulse Resp BP Pulse Ox 98.1 F 98 18 120/72 92 10/19/19 04:00 10/19/19 04:00 10/19/19 04:00 10/19/19 04:00 10/19/19 04:00 Preop Diagnosis: Small bowel obstruction Proposed Procedure: Operation Date: 10/19/19 08:20 Proposed Procedures p Laparoscopy, possible laparotomy, possible bowel resection(Not Applicable) - Tommy Han MD Familial anesthetic complications: No trouble Was Beta Danilo taken within 24 hours: N/A Last intake: Intake NPO > 8 hrs Last Liquid Date 10/18/19 Last Liquid Time 18:00 Social: Packs per day: former smoker (quit 1995) Exam: Pre-Anes Outpt Exam: alert, oriented x 3, clear to auscultation bilaterally and regular rate & rhythm Airway: Cervical ROM: WNL (neck pain (arthritis)) MP: 1 Dentition: False Pulmonary: Comments: possible sinus infection d/t NG tube, no lung problems, but satting 94% on room air CV/HEM: CV/HEM: HTN : Comments: BETSY Hepatic: Hepatic: None reported GI: GI: None reported Comments: SBO w/ NG Metabolic: Metabolic: None reported Musc/skel: Musc/skel: Lower Back Pain Comments: B/L hip replacement Neuropsych: Neuropsych: None reported Anesthetic Plan: ASA status: III Anesthesia: General Risk of > 500 ml blood loss (7ml/kg in children): No Meds/Allergies Current Medications: Current Medications Generic Name Dose Route Start Last Admin Trade Name Freq PRN Reason Stop Dose Admin Acetaminophen 650 mg 10/16/19 22:44 10/18/19 14:15 Tylenol Liquid PO 650 mg Q4H PRN Administration MILD PAIN OR INCR EASE TEMP Docusate Sodium 100 mg 10/15/19 09:00 10/18/19 17:18 Colace PO 100 mg BID SUZETTE Administration Ceftriaxone Sodium 1,000 mg/ 50 mls @ 100 mls/ hr 10/17/19 08:00 10/18/19 07:47 Sodium Chloride IV 100 mls/hr Q24H SUZETTE Administration Protocol Fat Emulsion Intra venous 125 mls @ 10.417 mls/hr 10/17/19 08:00 10/18/19 20:52 Intralipid 20% IV Infused Q24H SUZETTE Infusion Multivitamins 10 m l/ Amino 1,010 mls @ 42 ml s/hr 10/18/19 08:30 10/18/19 09:20 Acids/Electrolyt es IV 42 mls/hr .Q24H SUZETTE Administration Lactulose 10 gm 10/14/19 18:30 10/18/19 20:51 Constulose PO Not Given Q12H SUZETTE Pantoprazole Sodiu m 40 mg 10/15/19 07:30 10/18/19 20:39 Protonix IVP 40 mg Q12H SUZETTE Administration PFSH Anesthesia PFSH: Medical History Hyperlipidemia (Resolved) Hypertension (Resolved) Surgical History H/O: hysterectomy (Acute) S/P hip replacement (Acute) bilateral Family History Other CAD (coronary artery disease) Social History Smoking and tobacco status: former smoker Alcohol intake: never Lives independently: Yes Housing: House Data Anesthesia CBC & Chem 7: 10/19/19 05:26 10/19/19 05:26 Other Labs: Laboratory Results - last 48 hr 10/19/19 10/19/19 05:26 05:26 WBC 8.7 RBC 3.48 L Hgb 9.0 L Hct 29.0 L MCV 83.3 MCH 25.9 L MCHC 31.0 RDW 14.8 Plt Count 277 MPV 9.3 Neut % (Auto) 82.8 Lymph % (Auto) 8.3 [place] % (Auto) 7.5 Eos % (Auto) 0.8 Baso % (Auto) 0.1 Neut # (Auto) 7.2 Lymph # (Auto) 0.7 L [place] # (Auto) 0.7 Eos # (Auto) 0.1 Baso # (Auto) 0.0 Nucleated RBC % (auto) 0 Nucleated RBCs # 0.0 Sodium 135 L Potassium 3.8 Chloride 96 L Carbon Dioxide 31 H Anion Gap 11.8 BUN 25 H Creatinine 0.9 Glucose 149 H Calculated Osmolality 280 L Calcium 7.6 L Cardiac Studies: No Data to Display
[2019-10-19] MEDS: citric acid-sodium citrate 30 mL UDC PO (07:57)
[2019-10-19] MEDS: sodium chloride 0.9% 1,000 ML 30 ML IV (08:07)
--- NOTE | 2019-10-19 08:22 | PM.PN ---
Subjective Subjective: Interval history: No change overnight, no bowel movements. NG tube was put to suction Medications: Reviewed: Yes Vitals/I&O/Wt Last Vital Signs Temp 98.5 F 10/19/19 07:53 Pulse 91 10/19/19 07:53 Resp 16 10/19/19 07:53 BP 108/64 10/19/19 07:53 Pulse Ox 94 10/19/19 07:53 10/18/19 10/19/19 10/19/19 22:59 06:59 14:59 Intake Total 125.00 / 483.00 Output Total 350 / 1750 1400 / 1750 Balance -225.00 / -1267.00 -1400 / -1267.00 Physical Exam Narrative: EXAM NARRATIVE: Soft, nontender, minimally distended Urinary Catheter Management^: Mazariegos: Cath Placed During This Visit: no Data : 10/19/19 05:26 10/19/19 05:26 A&P Assessment and plan (1) Small bowel obstruction: Plan for diagnostic laparoscopy, possible laparotomy, possible bowel resection under general anesthesia today Procedure, risks, benefits and alternatives have been discussed with the patient who wishes to proceed with surgery. Status: Acute Code(s): K56.609 - Unspecified intestinal obstruction, unspecified as to partial versus complete obstruction Attestations Medical Necessity Statement*: Small bowel obstruction requiring surgery today Coding Level of Care Code Acute Aquarium Tank Attendant for g Fwd Diagnoses Small bowel obstruction K56.609
--- NOTE | 2019-10-19 10:05 | PC.NURSE ---
report called report to JAKY rn in ICU.
--- NOTE | 2019-10-19 10:37 | PM.OP ---
Operative Report Date of procedure: October 19, 2019 Pre-op Diagnosis: Small bowel obstruction Post-op Diagnosis: Small bowel obstruction multiple segments of ileum adherent to the cecum near the ileocecal valve where there was 8 cm segment of ischemic bowel secondary to band. Procedure Done: Diagnostic laparoscopy Exploratory laparotomy with partial colectomy with ileocolic [id number] stapled anastomosis Specimens removed/disposition: Ileum, cecum, proximal ascending colon Surgeon: Tommy Han Anesthesia: General Estimated blood loss (mL): 75 IV fluids (mL): 1,000 Urine output (mL): 125 Condition: stable Disposition: ICU Brief History: This is a 79-year-old female whose had a prior hysterectomy who presented to ER with abdominal pain nausea and vomiting. Patient was noted to have small bowel obstruction which is assumed to be secondary to adhesion and managed conservatively with NG tube and bowel rest. She was taken to surgery today since her small bowel obstruction did not resolve with conservative measures. Procedure: The patient was taken to the operating room and intubated under general anesthesia after IV antibiotic had been administered. A Mazariegos catheter and NG tube was already in place. The abdomen was prepped and draped in a sterile manner. A 1 cm infraumbilical longitudinal incision was made using 15 blade, using open Miles technique the peritoneal cavity was entered, 10 mm port was placed and 15 mm of pneumoperitoneum was created. 5 mm ports were placed in the right lower quadrant and suprapubic area under direct visualization. Multiple dilated small bowel loops were seen which appeared to be adherent to the right lower quadrant. In the right lower quadrant there was an ischemic segment of small bowel identified. I therefore extended the suprapubic incision into a midline laparotomy, subcutaneous tissue and linea alba was divided. A wound protector was placed. The multiple small bowel loops adherent to the ischemic segment was peeled away with finger dissection. There was about an 8 cm segment of ischemic bowel in the right lower quadrant just inferior to the cecum and there was adhesion which was the likely source of the ischemia. The adhesion was divided. The rest of the small bowel proximally was exteriorized examined from the ligament of Treitz to the site of obstruction. The small bowel contents were milked proximally and about 600 cc of enteric contents were aspirated through the NG tube. The position of the NG tube was confirmed within the gastric lumen. At this point I attempted to free the 2 small bowel loop segments that are adherent to the cecum, after it was freed, the bowel did not appear viable. The mesentery of the small bowel was therefore divided using LigaSure and 75 mm blue load VERÓNICA stapler was used to divide the ileum proximally. The line of Toldt was opened lateral to the cecum and the ascending colon and the cecum and the proximal ascending colon was mobilized medially. The the mesocolon of the cecum and the proximal ascending colon as well as the mesentery of the ileum was divided using LigaSure. 75mm blue load VERÓNICA stapler was used to divide the ascending colon and the resected segment was sent to pathology in formalin. There were no other sites of obstruction noted. Interrupted 4-0 Vicryl sutures were then placed to approximate the ileum to the ascending colon, enterotomies were made using electrocautery and a 75 mm blue load VERÓNICA stapler was fired to create a [id number] stapled ileocolic anastomosis. The previously created enterotomies were grasped with Allis clamps and 75 millimeter blue load GI stapler x2 was used to divide the ileum as well as the proximal portion of the ascending colon. The junction of the staple lines were inverted using 4-0 Vicryl Lembert sutures. There was a serosal tear in the proximal jejunum which was closed with interrupted 4-0 Vicryl suture and a second layer of 3-0 vicryl Lembert sutures. The peritoneal cavity was irrigated with 4 L of warm saline. There was no bleeding noted. A 10 flat OLIVER drain was introduced through stab incision in the right lower quadrant and placed within the right paracolic gutter at the site where the ischemic small bowel was present. The umbilicus incision was closed with a [id number] 0 Vicryl suture and the laparotomy incision was closed using #1 looped PDS. 20 cc of 1% lidocaine mixed with 20 cc of saline mixed with 20 cc of Exparel was injected around the incisions. The wound was irrigated saline and skin was closed with andria. The drain was sutured using 2-0 silk suture. Sterile dressings were applied. The patient was transferred to ICU with an NG tube and Mazariegos catheter in place.
[2019-10-19] MEDS: pantoprazole 40 mg SDV IVP (11:31)
[2019-10-19] MEDS: piperacillin-tazobactam 3.375 GM in sodium chloride 0.9% (plus) 50 ML IV ×2 (11:32→18:10)
--- NOTE | 2019-10-19 11:44 | PC.CHAP ---
Pastoral Care Encounter/Spiritual Assessment Type of Contact [] Declined sausage mixer visit [] Patient/Family/Request visit [] Outpatient visit [] Follow-up visit [] Physician referral [] Code/Alert [] Routine visit [] Staff referral [] Actively dying [] Patient sleeping [] Family support [] [x] Out of room [] Palliative care [] [] Receiving care in room [] Pre-surgical visit [] Trauma [] Long length of stay [] ICU visit [] Other: Relational/Emotional Strength [] Patient feels connected with others/family/visitors/staff [] Distress [] Loneliness/isolation [] Abandonment Spirituality of Patient [] Person of Marilyn [] Attends Zoroastrian of their Marilyn [] Believes in Prayer [] Reads Bible or Oriental Orthodox materials [] There are Spiritual issues to be addressed Lower School Spanish Teacher Interventions [] Prayer [] Active listening [] Non-anxious presence [] Spiritual/emotional support [] Crisis/trauma care [] Spiritual counseling [] Bereavement support [] Provided bereavement packet [] Provided Bible/devotional materials [] Provided toy/stuffed animal, coloring book to patient or family member [] Provided Communion [] Anointing/[place] [] Salvation [] Completed spiritual assessment [] Other: Impact on Illness or Injury [] Angry [] Fearful [] Anxious [] Often cries [] Exhaustion [] Unable to work [] Unable to attend synagogue [] Unable to walk/stand [] Unable to read [] Unable to drive [] Unable to eat/drink [] Unable to sleep [] Unable to be with family [] Patient intubated [] Other: Summary Lower School Spanish Teacher was advised that the pt. was in surgery, will need a follow up visit. Time spent with patient 5 min.
[2019-10-19 12:17] LABS: Anion Gap 16.8 (5-19); Blood Urea Nitrogen 26 mg/dL (8-23); Calcium 7.4 mg/dL (8.5-10.5); Carbon Dioxide 24 mmol/L (22-29); Chloride 99 mmol/L (98-107); Glucose 139 mg/dL (74-106); Osmolality Calculated 281 mOsm/kg (285-295); Potassium 3.8 mmol/L (3.5-5.1); Sodium 136 mmol/L (136-145)
[2019-10-19] MEDS: sodium chloride 0.9% 1,000 ML 100 ML IV ×2 (12:29→20:05)
[2019-10-19 12:46] LABS: Hematocrit 31.7 % (37.0-47.0); Hemoglobin 9.6 g/dL (11.5-15.3); Lymphocytes # 0.2 10^3/uL (0.8-4.8); Lymphocytes % 7.6 %; Mean Corpuscular HGB Conc 30.3 g/dL (30.0-36.0); Mean Corpuscular Hemoglobin 26.2 pg (28.0-34.0); Mean Corpuscular Volume 86.4 fL (81-99); Mean Platelet Volume 9.7 fL (7.4-10.4); Monocytes # 0.1 10^3/uL (0.2-0.9); Monocytes % 3.8 %; Neutrophils # 2.6 10^3/uL (1.8-7.7); Neutrophils % 88.3 %; Nucleated Red Blood Cells % 0 %; Platelet Count 272 10^3/cmm (130-400); Red Blood Count 3.67 10^6/uL (4.1-5.3); Red Cell Distribution Width 14.9 % (12.1-15.1); White Blood Count 2.9 10^3/uL (4.0-10.0)
[2019-10-19 13:19] LABS: Slide Review Slide Review Perform
[2019-10-19] MEDS: dextrose 5%-ns + KCl 20 20 MEQ/1,000 ML BAG 125 MEQ IV (13:30)
--- NOTE | 2019-10-19 14:47 | PM.PN ---
Subjective Subjective: Interval history: Emerald went to surgery this morning. She was found to have some ischemic bowel. Intraoperatively she did have some lower blood pressures as well as currently postoperatively. She reports her abdomen is tender. Medications: Reviewed: Yes Vitals/I&O/Wt Last Vital Signs Temp 98.3 F 10/19/19 11:00 Pulse 105 H 10/19/19 13:10 Resp 27 H 10/19/19 13:10 BP 92/52 10/19/19 13:10 Pulse Ox 98 10/19/19 12:20 10/18/19 10/19/19 10/19/19 22:59 06:59 14:59 Intake Total 125.00 / 483.00 1010 / 1010 Output Total 350 / 350 1400 / 1750 185 / 185 Balance -225.00 / 133.00 -1400 / -1267.00 825 / 825 Physical Exam Narrative: EXAM NARRATIVE: General exam is complaining of abdominal discomfort but appears comfortable Cardiovascular regular rate and rhythm, no murmur Lungs clear Abdomen is soft, hypoactive bowel sounds, large dressing noted Extremities no cyanosis clubbing or edema Urinary Catheter Management^: Mazariegos: Cath Placed During This Visit: no Data : 10/19/19 12:25 10/19/19 11:24 A&P Assessment and plan (1) Small bowel obstruction: Directly postoperative exploratory laparotomy with partial colectomy and ileocolic [id number] and a stenosis secondary to ischemic bowel, small bowel obstruction Status: Acute Code(s): K56.609 - Unspecified intestinal obstruction, unspecified as to partial versus complete obstruction (2) Acute kidney injury: Resolved Status: Acute Code(s): N17.9 - Acute kidney failure, unspecified (3) Dehydration: Resolved. Status: Acute Code(s): E86.0 - Dehydration (4) Hyponatremia: Resolved Status: Acute Code(s): E87.1 - Hypo-osmolality and hyponatremia (5) GI bleed: Hemoglobin is stable. Continue Protonix. Status: Acute Code(s): K92.2 - Gastrointestinal hemorrhage, unspecified Additional A&P Information Hypotension. She has had over 2 L of boluses. Will start norepinephrine. Continue to follow closely. Attestations Medical Necessity Statement*: Needs continued hospital stay secondary to ischemic bowel Critical Care Time: Critical care 33 minutes spent secondary to need for initiation of pressors, review of antibiotics, etc. in this very ill postoperative patient. Critical Care Time (min): 33 Coding Level of Care Code Acute Telephone Interviewer for Chg Fwd Diagnoses Small bowel obstruction K56.609 Acute kidney injury N17.9 Dehydration E86.0 Hyponatremia E87.1 GI bleed K92.2
[2019-10-19] MEDS: sodium chloride 0.9% 500 ML 999 ML IV (17:11)
--- NOTE | 2019-10-19 18:35 | SUR.OPER ---
0904 patient family updated by alejandra [id number] patient family updated by alejandra
--- NOTE | 2019-10-19 20:09 | PC.NURSE ---
Patient refused lactulose. Patient educated on medication indications. Informed that medication would prevent constipation and the feeling of being bloated. Informed that constipation could cause bowel to perforate which could lead to infection risk. Patient still refused medication. Will continue to monitor.
--- NOTE | 2019-10-19 22:49 | PC.NURSE ---
Patient states experiencing pain after turning. Morphine pulled from pyxis for pain. Patients blood pressure was 82/56. Patient states pain has gone away. Morphine held related to blood pressure and patient stated they no longer need medication for pain. [facility] JUSTINA Soler.
[2019-10-20] VITALS (24 sets, daily range): BP systolic 80–133; BP diastolic 39–65; PULSE 98–111; RESP 11–40; TEMP 36.6–36.8; O2SAT 74–100
[2019-10-20] MEDS: morphine 4 mg/mL SDV 1 mL 3 MG IVP (02:57)
[2019-10-20] MEDS: sodium chloride 0.9% 1,000 ML 100 ML IV ×2 (03:57→13:45)
[2019-10-20] MEDS: piperacillin-tazobactam 3.375 GM in sodium chloride 0.9% (plus) 50 ML IV ×3 (04:01→21:57)
[2019-10-20 04:44] LABS: Basophils % 0.2 %; Hematocrit 27.7 % (37.0-47.0); Hemoglobin 8.3 g/dL (11.5-15.3); Lymphocytes # 0.5 10^3/uL (0.8-4.8); Lymphocytes % 3.6 %; Mean Corpuscular Hemoglobin 27.1 pg (28.0-34.0); Mean Corpuscular Volume 90.5 fL (81-99); Mean Platelet Volume 9.8 fL (7.4-10.4); Monocytes # 0.5 10^3/uL (0.2-0.9); Monocytes % 3.7 %; Neutrophils % 91.9 %; Nucleated Red Blood Cells % 0 %; Platelet Count 212 10^3/cmm (130-400); Red Blood Count 3.06 10^6/uL (4.1-5.3); Red Cell Distribution Width 15.4 % (12.1-15.1); White Blood Count 14.2 10^3/uL (4.0-10.0)
[2019-10-20 05:03] LABS: Anion Gap 11.5 (5-19); Blood Urea Nitrogen 30 mg/dL (8-23); Calcium 6.5 mg/dL (8.5-10.5); Carbon Dioxide 26 mmol/L (22-29); Chloride 103 mmol/L (98-107); Glucose 247 mg/dL (74-106); Osmolality Calculated 287 mOsm/kg (285-295); Potassium 4.5 mmol/L (3.5-5.1); Sodium 136 mmol/L (136-145)
[2019-10-20 05:48] LABS: Slide Review Slide Review Perform
--- NOTE | 2019-10-20 09:35 | PC.SOCIAL ---
IMM update Pg 2 of IMM was updated with family and a copy provided. They verbalized understanding and had no questions. Initialed, dated, and timed copy in chart.
[2019-10-20] MEDS: acetaminophen 650 mg/20.3 mL UDC PO (10:39)
--- NOTE | 2019-10-20 10:59 | PC.CHAP ---
Pastoral Care Encounter/Spiritual Assessment Type of Contact [] Declined fabricator artificial breast visit [] Patient/Family/Request visit [] Outpatient visit [x] Follow-up visit [] Physician referral [] Code/Alert [x] Routine visit [] Staff referral [] Actively dying [] Patient sleeping [x] Family support [] [] Out of room [] Palliative care [] [] Receiving care in room [] Pre-surgical visit [] Trauma [x] Long length of stay [x] ICU visit [] Other: Relational/Emotional Strength [x] Patient feels connected with others/family/visitors/staff [] Distress [] Loneliness/isolation [] Abandonment Spirituality of Patient [x] Person of Marilyn [] Attends Episcopal of their Marilyn [x] Believes in Prayer [] Reads Bible or Evangelical materials [] There are Spiritual issues to be addressed Hand Sole Sewer Interventions [x] Prayer [x] Active listening [x] Non-anxious presence [x] Spiritual/emotional support [] Crisis/trauma care [] Spiritual counseling [] Bereavement support [] Provided bereavement packet [] Provided Bible/devotional materials [] Provided toy/stuffed animal, coloring book to patient or family member [] Provided Communion [] Anointing/[place] [] Salvation [x] Completed spiritual assessment [] Other: Impact on Illness or Injury [] Angry [] Fearful [] Anxious [] Often cries [] Exhaustion [] Unable to work [] Unable to attend jain [] Unable to walk/stand [] Unable to read [] Unable to drive [] Unable to eat/drink [] Unable to sleep [] Unable to be with family [] Patient intubated [] Other: Summary Patient expressed that she was feeling better today but very tired so fabricator artificial breast prayed with her and her family members so she could sleep. Visited by Hand Sole Sewer Ludin Curry Time spent with patient 8 minutes
[2019-10-20] MEDS: pantoprazole 40 mg SDV IVP (11:15)
--- NOTE | 2019-10-20 12:56 | PM.PN ---
Subjective Subjective: Interval history: Overall not doing too bad. Pain seems well controlled. No chest pain or shortness of breath. No fevers or chills. Not passing any gas or having bowel movements at this time. Still having quite a bit out the NG tube. Medications: Reviewed: Yes Vitals/I&O/Wt Last Vital Signs Temp 98.2 F 10/20/19 02:00 Pulse 104 H 10/20/19 12:00 Resp 25 H 10/20/19 12:00 BP 84/56 10/20/19 12:00 Pulse Ox 100 10/20/19 12:00 10/19/19 10/20/19 10/20/19 22:59 06:59 14:59 Intake Total 860 / 2928.678 1058.678 / 2928.678 241.028 / 241.028 Output Total 250 / 735 300 / 735 Balance 610 / 2193.678 758.678 / 2193.678 241.028 / 241.028 Physical Exam Narrative: EXAM NARRATIVE: General: No acute distress, Alert. Well nourished. Heart: Regular rate and rhythm. No murmurs, rubs or gallops. Normal capillary refill. Lungs: Lungs a bit diminished in the bases. No specific crackles appreciated. No wheezes or rhonchi. Abdomen: Absent bowel sounds. Non-tender, mildly distended. No hepatosplenomegaly. No gaurding. Extremities: No clubbing, cyanosis, or edema. Negative Elizabeth's Urinary Catheter Management^: Mazariegos: Cath Placed During This Visit: no Data : 10/20/19 03:50 10/20/19 03:50 A&P Assessment and plan (1) S/P partial colectomy: -Patient has been hypotensive since. She is currently on Levophed at 5 mics. Having no difficulty weaning her off. -Continue with TPN. Probably increase this tomorrow. -We will go ahead and try to get a CVP reading off of her PICC line. We may need to give her more fluids in an effort to get her off the Levophed. -Continue to monitor for postoperative complications. Status: Acute Code(s): Z90.49 - Acquired absence of other specified parts of digestive tract (2) Small bowel obstruction: Status: Resolved Code(s): K56.609 - Unspecified intestinal obstruction, unspecified as to partial versus complete obstruction (3) Acute kidney injury: -Improving some this morning. Status: Acute Code(s): N17.9 - Acute kidney failure, unspecified (4) Dehydration: Resolved. Status: Acute Code(s): E86.0 - Dehydration (5) Hyponatremia: Continue to monitor Status: Acute Code(s): E87.1 - Hypo-osmolality and hyponatremia (6) GI bleed: -Stable at this time. We will continue with SCDs. Continues to stay off of the Lovenox for now. Continue with Protonix twice daily. Status: Acute Code(s): K92.2 - Gastrointestinal hemorrhage, unspecified Attestations Medical Necessity Statement*: 79-year-old female with small bowel obstruction status post surgery requiring continued inpatient monitoring and treatment. Coding Level of Care Code Acute Wire Bound Box Machine Helper for Chg Fwd Diagnoses S/P partial colectomy Z90.49 Small bowel obstruction K56.609 Acute kidney injury N17.9 Dehydration E86.0 Hyponatremia E87.1 GI bleed K92.2
--- NOTE | 2019-10-20 13:45 | PM.PN ---
Subjective Subjective: Interval history: Patient continues to be on 6 mcg of levophed, awake and oriented. Had some mild abdominal pain. NG tube output was bloody Vitals/I&O/Wt Last Vital Signs Temp 98.2 F 10/20/19 02:00 Pulse 104 H 10/20/19 12:00 Resp 25 H 10/20/19 12:00 BP 84/56 10/20/19 12:00 Pulse Ox 100 10/20/19 12:00 10/19/19 10/20/19 10/20/19 22:59 06:59 14:59 Intake Total 860 / 2928.678 1058.678 / 2928.678 1241.028 / 1241.028 Output Total 250 / 735 300 / 735 Balance 610 / 2193.678 758.678 / 2193.678 1241.028 / 1241.028 Physical Exam Narrative: EXAM NARRATIVE: Abdomen: Soft, tender, distended, incision clean dry and intact, OLIVER drain output is serosanguineous, NG tube to low intermittent suction, Mazariegos catheter in place Urinary Catheter Management^: Mazariegos: Cath Placed During This Visit: no Data : 10/20/19 03:50 10/20/19 03:50 A&P Assessment and plan (1) S/P partial colectomy: Patient is postop day 1 status post partial colectomy for ischemic bowel secondary to obstruction, currently in septic shock on pressors though she has been stable overnight. She has had reasonable urine output Continue NG tube to low intermittent suction Mazariegos to gravity Lovenox for DVT prophylaxis Protonix 40 mg IV twice daily Physical therapy Status: Acute Code(s): Z90.49 - Acquired absence of other specified parts of digestive tract (2) Septic shock: Continue IV fluids and TPN Wean Levophed to keep MAP greater than 70 Status: Acute Code(s): A41.9 - Sepsis, unspecified organism; R65.21 - Severe sepsis with septic shock Attestations Medical Necessity Statement*: Partial colectomy with septic shock Coding Level of Care Code Acute Filing And Polishing Supervisor for [facility] Fwd Diagnoses S/P partial colectomy Z90.49 Septic shock A41.9; R65.21
--- NOTE | 2019-10-20 17:02 | USCV_ITS ---
Emerald Subramanian Age: 79 Gender: F : 1940 Exam Date: 10/20/2019 17:28 Ordering Phys: Devan Craven MD Technologist: Chitra Rogers [place] [facility] [place] EVAL EF AND PA PRESSURE BP: 100 / 51 HR: 113 Rhythm: Sinus Technical Quality: Adequate MEASUREMENTS (Male / Female) Normal Values 2D ECHO LV Diastolic Diameter PLAX 3.8 cm 4.2 - 5.9 / 3.9 - 5.3 cm LV Systolic Diameter PLAX 2.9 cm LV Chamber Size 3.3 cm IVS Diastolic Thickness 1.2 cm 0.6 - 1.0 / 0.6 - 0.9 cm IVS Systolic Thickness 1.0 cm LVPW Diastolic Thickness 1.5 cm 0.6 - 1.0 / 0.6 - 0.9 cm LVPW Systolic Thickness 1.7 cm RV Chamber Size 2.9 cm LVOT Diameter 2.1 cm LV Ejection Fraction 2D Teich 46.4 % LV Ejection Fraction MOD 2C 68.8 % LV Ejection Fraction 2C AL 70.0 % LA Diameter 3.5 cm LA Width 3.5 cm LA Height 2.6 cm RA Width 3.2 cm RA Height 2.1 cm Aorta at Sinotubular Diameter 2.8 cm M-MODE LV Diastolic Diameter MM 3.5 cm 4.2 - 5.9 / 3.9 - 5.3 cm LV Systolic Diameter MM 2.2 cm LV Ejection Fraction MM Teich 68.1 % IVS Diastolic Thickness MM 0.8 cm 0.6 - 1.0 / 0.6 - 0.9 cm IVS Systolic Thickness MM 0.9 cm LVPW Diastolic Thickness MM 0.7 cm 0.6 - 1.0 / 0.6 - 0.9 cm LVPW Systolic Thickness MM 1.3 cm Aortic Annulus Diameter 3.1 cm LA Ao Ratio MM 1.1 MV E Point Septal Separation 0.6 cm DOPPLER AV Peak Velocity 158.0 cm/s LVOT Peak Velocity 114.0 cm/s AV Area Cont Eq vti 2.4 cm squared AV Area Cont Eq pk 2.4 cm squared MV Area PHT 6.7 cm squared Mitral E to A Ratio 0.7 MV E' Velocity 14.0 cm/s Mitral E to MV E' Ratio 5.9 Mitral E to LV E' Lateral Ratio 6.2 Mitral E to LV E' Septal Ratio 5.7 TR Peak Velocity 304.0 cm/s TR Peak Gradient 37.1 mmHg TV Peak E Velocity 69.0 cm/s Right Atrial Pressure 3.0 mmHg Pulmonary Artery Systolic Pressu 40.0 mmHg PV Peak Velocity 82.0 cm/s RV Acceleration Time 0.1 s RV Ejection Time 0.3 s RV AcT/ET 0.5 FINDINGS Left Ventricle Normal left ventricular cavity size. Normal left ventricular systolic function.left ventricular ejection fraction is estimated at 60 %. Grade I/IV diastolic dysfunction (abnormal relaxation filling pattern), normal to mildly elevated filling pressures. Right Ventricle The right ventricle is normal in size and function. Mild pulmonary hypertension, RVSP 40 mmHg. Right Atrium The right atrium is normal in size. Left Atrium The left atrium is normal in size. Mitral Valve Moderately thickened mitral valve. No mitral valve stenosis. Mild mitral valve regurgitation. Aortic Valve Moderate aortic valve calcification. No aortic valve stenosis. Trace aortic valve regurgitation. Tricuspid Valve Structurally normal tricuspid valve without significant stenosis or regurgitation. Pulmonic Valve Structurally normal pulmonic valve without significant stenosis. There is no pulmonic regurgitation. Pericardium Normal pericardium without effusion. Aorta Normal ascending aorta dimension. CONCLUSIONS 1-Normal left ventricular cavity size. Normal left ventricular systolic function.left ventricular ejection fraction is estimated at 60 %. Grade I/IV diastolic dysfunction (abnormal relaxation filling pattern), normal to mildly elevated filling pressures. 2-Moderately thickened mitral valve. No mitral valve stenosis. Mild mitral valve regurgitation. 3-Moderate aortic valve calcification. No aortic valve stenosis. Trace aortic valve regurgitation. 4-There is no pericardial effusion. 5-The right ventricle is normal in size and function. Mild pulmonary hypertension, RVSP 40 mmHg. 6-Right atrial pressure is around 5 mm of mercury. 7-There are no prior echocardiogram studies to compare. Justus Truong MD (Electronically Signed) Final Date: 20 October 2019 18:21 S
[2019-10-21] VITALS (35 sets, daily range): BP systolic 95–119; BP diastolic 45–64; PULSE 92–144; RESP 8–36; TEMP 36.4–36.9; O2SAT 95–100; BMI 27.1
[2019-10-21] MEDS: sodium chloride 0.9% 1,000 ML 100 ML IV (00:16)
[2019-10-21 04:04] LABS: Basophils % 0.1 %; Eosinophils % 0.2 %; Hematocrit 22.4 % (37.0-47.0); Hemoglobin 6.7 g/dL (11.5-15.3); Lymphocytes # 0.4 10^3/uL (0.8-4.8); Lymphocytes % 3.5 %; Mean Corpuscular HGB Conc 29.9 g/dL (30.0-36.0); Mean Corpuscular Hemoglobin 26.3 pg (28.0-34.0); Mean Corpuscular Volume 87.8 fL (81-99); Mean Platelet Volume 9.7 fL (7.4-10.4); Monocytes # 0.5 10^3/uL (0.2-0.9); Monocytes % 4.1 %; Neutrophils # 11.3 10^3/uL (1.8-7.7); Neutrophils % 91.3 %; Nucleated Red Blood Cells % 0 %; Platelet Count 217 10^3/cmm (130-400); Red Blood Count 2.55 10^6/uL (4.1-5.3); Red Cell Distribution Width 15.4 % (12.1-15.1); White Blood Count 12.3 10^3/uL (4.0-10.0)
[2019-10-21 04:23] LABS: Anion Gap 10.8 (5-19); Blood Urea Nitrogen 28 mg/dL (8-23); Calcium 6.8 mg/dL (8.5-10.5); Carbon Dioxide 25 mmol/L (22-29); Chloride 106 mmol/L (98-107); Glucose 132 mg/dL (74-106); Osmolality Calculated 285 mOsm/kg (285-295); Potassium 3.8 mmol/L (3.5-5.1); Sodium 138 mmol/L (136-145)
[2019-10-21 04:46] LABS: Slide Review Slide Review Perform
[2019-10-21] MEDS: piperacillin-tazobactam 3.375 GM in sodium chloride 0.9% (plus) 50 ML IV ×3 (07:04→22:38)
[2019-10-21] MEDS: acetaminophen 650 mg/20.3 mL UDC PO (09:48)
[2019-10-21] MEDS: pantoprazole 40 mg SDV IVP ×2 (10:33→23:52)
[2019-10-21] MEDS: sodium chloride 0.9% 100 ML 150 ML ×2 (11:01→17:55)
--- NOTE | 2019-10-21 11:47 | PM.PN ---
Subjective Subjective: Interval history: Overall seems to be doing little bit better. No fevers or chills. No chest pain or significant shortness of breath. Pains well controlled. Not really passing any gas yet but started to have some bowel sounds. Medications: Reviewed: Yes Vitals/I&O/Wt Last Vital Signs Temp 98.4 F 10/21/19 11:30 Pulse 101 H 10/21/19 11:30 Resp 25 H 10/21/19 11:30 BP 112/54 10/21/19 11:30 Pulse Ox 99 10/21/19 11:30 10/20/19 10/21/19 10/21/19 22:59 06:59 14:59 Intake Total 50 / 3610.322 1309.294 / 3610.322 0 / 0 Output Total 655 / 705 50 / 705 Balance -605 / 2905.322 1259.294 / 2905.322 0 / 0 Weight last 48 hrs Weight 163 lb 1.6 oz Physical Exam Narrative: EXAM NARRATIVE: General: No acute distress, Alert. Well nourished. Heart: Regular rate and rhythm. No murmurs, rubs or gallops. Normal capillary refill. Lungs: Lungs a bit diminished in the bases. No specific crackles appreciated. No wheezes or rhonchi. Abdomen: Occasional bowel sounds. Non-tender, mildly distended. No hepatosplenomegaly. No gaurding. Extremities: No clubbing, cyanosis, or edema. Negative Elizabeth's Urinary Catheter Management^: Mazariegos: Cath Placed During This Visit: no Data : 10/21/19 03:35 10/21/19 03:35 Other Labs: Abnormal lab results 10/21/19 10/21/19 10/21/19 Range/Units 03:35 03:35 07:59 WBC 12.3 H (4.0-10.0) 10^3/uL RBC 2.55 L (4.1-5.3) 10^6/uL Hgb 6.7 L (11.5-15.3) g/dL Hct 22.4 L (37.0-47.0) % MCH 26.3 L (28.0-34.0) pg MCHC 29.9 L (30.0-36.0) g/dL RDW 15.4 H (12.1-15.1) % Neut # (Auto) 11.3 H (1.8-7.7) 10^3/uL Lymph # (Auto) 0.4 L (0.8-4.8) 10^3/uL BUN 28 H (8-23) mg/dL Creatinine 1.0 H (0.5-0.9) mg/dL Glucose 132 H (74-106) mg/dL Calcium 6.8 L (8.5-10.5) mg/dL Crossmatch See Detail A&P Assessment and plan (1) S/P partial colectomy: Neuro: [Patient is alert. No concerns from the standpoint.] Electrolytes: [Electrolytes are okay. Calcium is a little low. Partially corrects due to low albumin..] Hematology: [She has significant drop in her hemoglobin. No obvious signs of GI bleeding at this time. We will proceed with transfusion of 2 units packed red blood cells.] Cardiology: [Echocardiogram was okay. Ejection fraction and PA pressure are okay, we are slowly getting off the pressors. Suspect this is from a septic shock picture. Continue with IV antibiotics. She is only on 1 renée of Levophed. Anticipate will be office in the next hour or 2.] Pulmonary: [Has some mild pleural effusions.. Continue with respiratory therapy. Continue oxygen. Anticipate will be able to wean off this. Continue with incentive spirometer ] GI: [Patient started to have some bowel sounds. She feels like she may be able to pass some gas later today. We will go ahead and clamp the NG tube. We will increase her TPN calorie amount. Increase Protonix to twice daily] Renal: [BUN and creatinine are okay at this time. She has had poor urine output. I suspect some of this is ATN induced. Overall she seems relatively euvolemic. Continue with 2 units packed red blood cells today. Monitor closely.] ID: [Suspect some infection from her colectomy. Overall seems to be doing well. White blood cell count is doing okay. Continue with IV antibiotics and continue to monitor.] General: [Patient is getting can do leg pumps for DVT prophylaxis. We are holding off on any other anticoagulants due to her anemia and hemoglobin dropping. She is on Protonix twice daily and will continue with physical therapy as well. ] Status: Acute Code(s): Z90.49 - Acquired absence of other specified parts of digestive tract (2) Small bowel obstruction: Status: Resolved Code(s): K56.609 - Unspecified intestinal obstruction, unspecified as to partial versus complete obstruction (3) Acute kidney injury: Status: Acute Code(s): N17.9 - Acute kidney failure, unspecified (4) Dehydration: Resolved. Status: Acute Code(s): E86.0 - Dehydration (5) Hyponatremia: Continue to monitor Status: Acute Code(s): E87.1 - Hypo-osmolality and hyponatremia (6) GI bleed: Status: Acute Code(s): K92.2 - Gastrointestinal hemorrhage, unspecified Attestations Medical Necessity Statement*: Patient is a 79-year-old female with bowel obstruction and status post hemicolectomy requiring normal postoperative care. Coding Level of Care Code Acute Livestock Yard Attendant for Chg Fwd Diagnoses S/P partial colectomy Z90.49 Small bowel obstruction K56.609 Acute kidney injury N17.9 Dehydration E86.0 Hyponatremia E87.1 GI bleed K92.2
--- NOTE | 2019-10-21 12:23 | PC.NURSE ---
Dr. Han at bedside and removed abdominal dressing. Dr. Ugarte requests dressing remain off and site cleaned with chlorhexadine. Dr. Han ordered to clamp NG tube to tolerance. If patient develops nausea NG tube can be hooked back up to low intermittent suction.
--- NOTE | 2019-10-21 12:40 | PC.NURSE ---
Chlorhexadine swab applied over incision sites. Patient tolerated well.
--- NOTE | 2019-10-21 12:49 | PC.CHAP ---
Pastoral Care Encounter/Spiritual Assessment Type of Contact [] Declined fitness supervisor visit [] Patient/Family/Request visit [] Outpatient visit [] Follow-up visit [] Physician referral [] Code/Alert [x] Routine visit [] Staff referral [] Actively dying [] Patient sleeping [] Family support [] [] Out of room [] Palliative care [] [] Receiving care in room [] Pre-surgical visit [] Trauma [] Long length of stay [x] ICU visit [] Other: Relational/Emotional Strength [x] Patient feels connected with others/family/visitors/staff [] Distress [] Loneliness/isolation [] Abandonment Spirituality of Patient [x] Person of Marilyn [] Attends Cheondoism of their Marilyn [x] Believes in Prayer [] Reads Bible or Anabaptist materials [] There are Spiritual issues to be addressed Director Public Interventions [x] Prayer [x] Active listening [x] Non-anxious presence [x] Spiritual/emotional support [] Crisis/trauma care [] Spiritual counseling [] Bereavement support [] Provided bereavement packet [] Provided Bible/devotional materials [] Provided toy/stuffed animal, coloring book to patient or family member [] Provided Communion [] Anointing/[place] [] Salvation [] Completed spiritual assessment [] Other: Impact on Illness or Injury [] Angry [] Fearful [] Anxious [] Often cries [] Exhaustion [] Unable to work [] Unable to attend buddhism [] Unable to walk/stand [] Unable to read [] Unable to drive [] Unable to eat/drink [] Unable to sleep [] Unable to be with family [] Patient intubated [] Other: Summary The fitness supervisor visited with the patient and her daughter. Man prayed for both the patient and her daughter. Time spent with patient 10 min.
--- NOTE | 2019-10-21 16:31 | P.PN_ITS ---
Subjective Subjective: Interval history: Patient has done well overnight, good urine output, no nausea or vomiting, NG output was minimal. She is down to 1 mcg of levophed and is receiving 2 units of blood today Medications: Reviewed: Yes Vitals/I&O/Wt Last Vital Signs Temp 97.5 F L 10/21/19 13:45 Pulse 95 10/21/19 16:00 Resp 25 H 10/21/19 16:00 BP 106/51 10/21/19 16:00 Pulse Ox 99 10/21/19 16:00 10/21/19 10/21/19 10/21/19 06:59 14:59 22:59 Intake Total 1309.294 / 3610.322 400 / 400 Output Total 50 / 705 100 / 200 100 / 200 Balance 1259.294 / 2905.322 300 / 200 -100 / 200 Weight last 48 hrs Weight 163 lb 1.6 oz Physical Exam Narrative: EXAM NARRATIVE: Abdomen: Soft, minimally distended, tender, incision clean dry and intact, OLIVER drain output is serosanguineous. NG tube is clamped, Mazariegos to gravity Urinary Catheter Management^: Mazariegos: Cath Placed During This Visit: yes Urethral Indwelling: Yes Reason for Continuing Indwelling Catheter: Accurate Measurement of Urinary Output in Critically Ill Patients Urinary Catheter Date of Insertion: 10/15/19 Urinary Catheter Time of Insertion: 11:55 Data : 10/21/19 03:35 10/21/19 03:35 A&P Assessment and plan (1) S/P partial colectomy: 7-year-old female status post partial colectomy secondary to ischemic bowel from small bowel obstruction. Continues to improve, white count is down to 12, patient is afebrile and she is being weaned off pressors. She is awake and alert. Keep NG tube clamped Continue TPN Okay to have ice chips Continue IV Zosyn Physical therapy Status: Acute Code(s): Z90.49 - Acquired absence of other specified parts of digestive tract Attestations Medical Necessity Statement*: Patient needs continued inpatient stay as she is septic and requires further resuscitation Coding Level of Care Code Acute Artist Representative for Chg Fwd Diagnoses S/P partial colectomy Z90.49
--- NOTE | 2019-10-21 19:19 | PC.NURSE ---
bedside report rcvd at this time vss per cm. prbc infusing at 150 cc.hr tpn c lipids infusing to right picc . no distress noted . deyanira livingston
--- NOTE | 2019-10-21 19:45 | PC.NURSE ---
positioned for comfort vss per cm assessment per flowsheet. midline incision c andria intact incision well approximated . trocar sites intact and approximated. bsa x 4 . pt reports gas twinges but denies pain. call light in hand .
[2019-10-21] MEDS: sodium chloride 0.9% 1,000 ML 150 ML IV (22:37)
[2019-10-21] MEDS: morphine 4 mg/mL SDV 1 mL 3 MG IVP (22:38)
[2019-10-22] VITALS (17 sets, daily range): BP systolic 107–156; BP diastolic 53–95; PULSE 88–106; RESP 16–38; TEMP 36.2–36.8; O2SAT 90–98; BMI 27.2
[2019-10-22 04:15] LABS: Basophils % 0.1 %; Nucleated Red Blood Cells % 0 %; Red Cell Distribution Width 15.9 % (12.1-15.1)
[2019-10-22 04:27] LABS: Eosinophils % 0.4 %; Hematocrit 30.5 % (37.0-47.0); Hemoglobin 9.5 g/dL (11.5-15.3); Lymphocytes # 0.7 10^3/uL (0.8-4.8); Lymphocytes % 6.6 %; Mean Corpuscular HGB Conc 31.1 g/dL (30.0-36.0); Mean Corpuscular Hemoglobin 26.8 pg (28.0-34.0); Mean Corpuscular Volume 86.2 fL (81-99); Mean Platelet Volume 9.8 fL (7.4-10.4); Monocytes # 0.5 10^3/uL (0.2-0.9); Monocytes % 4.7 %; Neutrophils # 8.9 10^3/uL (1.8-7.7); Neutrophils % 87.2 %; Platelet Count 197 10^3/cmm (130-400); Red Blood Count 3.54 10^6/uL (4.1-5.3); White Blood Count 10.2 10^3/uL (4.0-10.0)
[2019-10-22 05:11] LABS: Alanine Aminotransferase 8 U/L (0-33); Albumin Level 1.2 g/dL (3.5-5.2); Alkaline Phosphatase 53 IU/L (35-105); Anion Gap 12.8 (5-19); Aspartate Amino Transferase 14 U/L (0-32); Blood Urea Nitrogen 20 mg/dL (8-23); Calcium 7.4 mg/dL (8.5-10.5); Carbon Dioxide 24 mmol/L (22-29); Chloride 108 mmol/L (98-107); Globulin 3.3 g/dL (1.3-4.6); Magnesium 2.1 mg/dL (1.7-2.3); Phosphorus 2.5 mg/dL (2.5-4.5); Potassium 3.8 mmol/L (3.5-5.1); Sodium 141 mmol/L (136-145); Total Bilirubin 0.4 mg/dL (0.15-1.2); Total Protein 4.5 g/dL (6.6-8.7)
[2019-10-22] MEDS: piperacillin-tazobactam 3.375 GM in sodium chloride 0.9% (plus) 50 ML IV ×3 (06:00→21:45)
[2019-10-22 09:11] LABS: Glucose 128 mg/dL (65-115)
--- NOTE | 2019-10-22 09:17 | PC.SOCIAL ---
IMM update Pg 2 of IMM was updated with patient and a copy was provided. She verbalized understanding and no questions. Initialed, dated, and timed copy in chart.
--- NOTE | 2019-10-22 09:47 | PC.CHAP ---
Pastoral Care Encounter/Spiritual Assessment Type of Contact [] Declined interior design professor visit [] Patient/Family/Request visit [] Outpatient visit [] Follow-up visit [] Physician referral [] Code/Alert [x] Routine visit [] Staff referral [] Actively dying [] Patient sleeping [] Family support [] [] Out of room [] Palliative care [] [] Receiving care in room [] Pre-surgical visit [] Trauma [] Long length of stay [x] ICU visit [] Other: Relational/Emotional Strength [x] Patient feels connected with others/family/visitors/staff [] Distress [] Loneliness/isolation [] Abandonment Spirituality of Patient [x] Person of Marilyn [x] Attends Amish of their Marilyn [x] Believes in Prayer [x] Reads Bible or Hindu materials [] There are Spiritual issues to be addressed Operator And Truck Driver Interventions [x] Prayer [x] Active listening [x] Non-anxious presence [x] Spiritual/emotional support [] Crisis/trauma care [] Spiritual counseling [] Bereavement support [] Provided bereavement packet [] Provided Bible/devotional materials [] Provided toy/stuffed animal, coloring book to patient or family member [] Provided Communion [] Anointing/[place] [] Salvation [] Completed spiritual assessment [] Other: Impact on Illness or Injury [] Angry [] Fearful [] Anxious [] Often cries [] Exhaustion [] Unable to work [] Unable to attend baptism [] Unable to walk/stand [] Unable to read [] Unable to drive [] Unable to eat/drink [] Unable to sleep [] Unable to be with family [] Patient intubated [] Other: Summary Tthe interior design professor visited the patient and prayed for her. Time spent with patient 10 min.
[2019-10-22] MEDS: pantoprazole 40 mg SDV IVP ×2 (10:09→22:09)
[2019-10-22] MEDS: sodium chloride 0.9% 1,000 ML 83 ML IV (10:09)
--- NOTE | 2019-10-22 12:39 | P.PN_ITS ---
Subjective Subjective: Interval history: Patient doing well denies any pain, tolerating GI soft diet, had bowel movements patient is awake and alert, tolerated clamping the NG tube, no nausea or vomiting. No flatus or BM. Vitals/I&O/Wt Last Vital Signs Temp 98.0 F 10/22/19 06:00 Pulse 94 10/22/19 12:00 Resp 25 H 10/22/19 12:00 BP 132/95 10/22/19 12:00 Pulse Ox 97 10/22/19 10:00 10/21/19 10/22/19 10/22/19 22:59 06:59 14:59 Intake Total 250 / 1895 250 / 1895 2187 / 2187 Output Total 900 / 1900 900 / 1900 Balance -650 / -5 -650 / -5 2187 / 2187 Weight last 48 hrs Weight 163 lb 12.8 oz Weight 163 lb 1.6 oz Physical Exam Narrative: EXAM NARRATIVE: Abdomen: Soft, tender, minimally distended, incisio n clean dry and intact, OLIVER drain output serosanguineous. NG tube is clamped, Mazariegos to gravity Urinary Catheter Management^: Mazariegos: Cath Placed During This Visit: yes Urethral Indwelling: Yes Reason for Continuing Indwelling Catheter: Accurate Measurement of Urinary Output in Critically Ill Patients Urinary Catheter Date of Insertion: 10/15/19 Urinary Catheter Time of Insertion: 11:55 Data : 10/22/19 03:33 10/22/19 03:33 A&P Assessment and plan (1) S/P partial colectomy: 79-year-old female status post partial colectomy secondary to ischemic bowel from small bowel obstruction. Continues to improve, white count is down to 10, patient is afebrile and she is off pressors. She is awake and alert. Keep NG tube clamped Continue TPN Okay to have ice chips and may be some clears Restart Colace and lactulose Continue IV Zosyn Physical therapy We will keep her in ICU today and hopefully transfer to the floor tomorrow Status: Acute Code(s): Z90.49 - Acquired absence of other specified parts of digestive tract Attestations Medical Necessity Statement*: Status post partial colectomy requiring continued inpatient stay Coding Level of Care Code Acute Veterinarian Epidemiologist for Chg Fwd Diagnoses S/P partial colectomy Z90.49
--- NOTE | 2019-10-22 14:18 | P.PN_ITS ---
Subjective Subjective: Interval history: Seems to be doing better. Less pain. No shortness of breath. Had better urine output yesterday. Starting to pass some gas she feels like. Started to notice some bowel sounds. Medications: Reviewed: Yes Vitals/I&O/Wt Last Vital Signs Temp 98.0 F 10/22/19 06:00 Pulse 94 10/22/19 12:00 Resp 25 H 10/22/19 12:00 BP 132/95 10/22/19 12:00 Pulse Ox 97 10/22/19 10:00 10/21/19 10/22/19 10/22/19 22:59 06:59 14:59 Intake Total 250 / 1895 250 / 1895 2187 / 2187 Output Total 900 / 1900 900 / 1900 Balance -650 / -5 -650 / -5 2187 / 2187 Weight last 48 hrs Weight 163 lb 12.8 oz Weight 163 lb 1.6 oz Physical Exam Narrative: EXAM NARRATIVE: General: No acute distress, Alert. Well nourished. Heart: Regular rate and rhythm. No murmurs, rubs or gallops. Normal capillary refill. Lungs: Lungs a bit diminished in the bases. No specific crackles appreciated. No wheezes or rhonchi. Abdomen: Occasional bowel sounds. Non-tender, mildly distended. No hepatosplenomegaly. No gaurding. Extremities: No clubbing, cyanosis, or edema. Negative Elizabeth's Urinary Catheter Management^: Mazariegos: Cath Placed During This Visit: yes Urethral Indwelling: Yes Reason for Continuing Indwelling Catheter: Accurate Measurement of Urinary Output in Critically Ill Patients Urinary Catheter Date of Insertion: 10/15/19 Urinary Catheter Time of Insertion: 11:55 Data : 10/22/19 03:33 10/22/19 03:33 A&P Assessment and plan (1) S/P partial colectomy: Neuro: [Patient is alert. No concerns from the standpoint.] Electrolytes: [Electrolytes are okay. Calcium is a little low but improved from yesterday.. Partially corrects due to low albumin..] Hematology: [. No obvious signs of GI bleeding at this time. Status post 2 units packed red blood cells yesterday. Hemoglobin is stable after that..] Cardiology: [Echocardiogram was okay. Off the pressors as of yesterday. Seems to be doing better with her blood pressure today..] Pulmonary: [Has some mild pleural effusions.. Continue with respiratory therapy. Continue oxygen. Anticipate will be able to wean off this. Continue with incentive spirometer ] GI: [Patient started to have some bowel sounds. She feels like she may be able to pass some gas later today. We will go ahead and clamp the NG tube. We will increase her TPN calorie amount. Increase Protonix to twice daily] Renal: [BUN and creatinine are okay at this time. She has had poor urine output. I suspect some of this is ATN induced. Overall she seems relatively euvolemic. Better urine output overnight. Continue to monitor this closely..] ID: [Suspect some infection from her colectomy. Overall seems to be doing well. White blood cell count is doing okay. Continue with IV antibiotics and continue to monitor.] General: [Patient is getting can do leg pumps for DVT prophylaxis. We are holding off on any other anticoagulants due to her anemia and hemoglobin dropping. She is on Protonix twice daily and will continue with physical therapy as well. ] Status: Acute Code(s): Z90.49 - Acquired absence of other specified parts of digestive tract (2) Small bowel obstruction: Status: Resolved Code(s): K56.609 - Unspecified intestinal obstruction, unspecified as to partial versus complete obstruction (3) Acute kidney injury: Status: Acute Code(s): N17.9 - Acute kidney failure, unspecified (4) Dehydration: Resolved. Status: Acute Code(s): E86.0 - Dehydration (5) Hyponatremia: Continue to monitor Status: Acute Code(s): E87.1 - Hypo-osmolality and hyponatremia (6) GI bleed: Status: Acute Code(s): K92.2 - Gastrointestinal hemorrhage, unspecified Attestations Medical Necessity Statement*: 79-year-old female with bowel obstruction status post surgery and hemicolectomy requiring continued inpatient treatment and postoperative care. Coding Level of Care Code Acute Supervisor Polishing for Chg Fwd Diagnoses S/P partial colectomy Z90.49 Small bowel obstruction K56.609 Acute kidney injury N17.9 Dehydration E86.0 Hyponatremia E87.1 GI bleed K92.2
[2019-10-22] MEDS: docusate sodium 100 mg Capsule PO (17:13)
--- NOTE | 2019-10-22 19:51 | PC.NURSE ---
report rcvd at htis time vss per cm encouraged t/c/d temp 98.2 at this time. pt denies needs at this time. assessment per flowsheet deyanira livingston.
[2019-10-22] MEDS: lactulose oral liq 20 gm/30 mL UDC 10 GM PO (20:53)
[2019-10-22] MEDS: morphine 4 mg/mL SDV 1 mL 3 MG IVP (22:09)
[2019-10-22] MEDS: ondansetron 2 mg/ML SDV 2 mL 4 MG IVP (22:11)
[2019-10-23] VITALS (15 sets, daily range): BP systolic 92–186; BP diastolic 62–106; PULSE 95–125; RESP 17–42; TEMP 36.7–37.1; O2SAT 85–97; BMI 28.3
[2019-10-23] MEDS: sodium chloride 0.9% 1,000 ML 90 ML IV (01:52)
[2019-10-23 04:39] LABS: Basophils % 0.1 %; Eosinophils % 0.4 %; Hematocrit 34.3 % (37.0-47.0); Hemoglobin 10.7 g/dL (11.5-15.3); Lymphocytes # 0.6 10^3/uL (0.8-4.8); Lymphocytes % 8.5 %; Mean Corpuscular HGB Conc 31.2 g/dL (30.0-36.0); Mean Corpuscular Hemoglobin 27.4 pg (28.0-34.0); Mean Corpuscular Volume 87.7 fL (81-99); Mean Platelet Volume 9.7 fL (7.4-10.4); Monocytes # 0.6 10^3/uL (0.2-0.9); Monocytes % 7.9 %; Neutrophils # 5.9 10^3/uL (1.8-7.7); Neutrophils % 82.7 %; Nucleated Red Blood Cells % 0 %; Platelet Count 220 10^3/cmm (130-400); Red Blood Count 3.91 10^6/uL (4.1-5.3); Red Cell Distribution Width 15.9 % (12.1-15.1); White Blood Count 7.1 10^3/uL (4.0-10.0)
[2019-10-23 05:00] LABS: Alanine Aminotransferase 8 U/L (0-33); Albumin Level 1.4 g/dL (3.5-5.2); Alkaline Phosphatase 87 IU/L (35-105); Anion Gap 10.6 (5-19); Aspartate Amino Transferase 17 U/L (0-32); Blood Urea Nitrogen 23 mg/dL (8-23); Calcium 7.3 mg/dL (8.5-10.5); Carbon Dioxide 24 mmol/L (22-29); Chloride 106 mmol/L (98-107); Globulin 3.1 g/dL (1.3-4.6); Glucose 164 mg/dL (65-115); Potassium 3.6 mmol/L (3.5-5.1); Sodium 137 mmol/L (136-145); Total Bilirubin 0.3 mg/dL (0.15-1.2); Total Protein 4.5 g/dL (6.6-8.7)
[2019-10-23] MEDS: piperacillin-tazobactam 3.375 GM in sodium chloride 0.9% (plus) 50 ML IV ×3 (05:30→21:18)
--- NOTE | 2019-10-23 05:37 | PC.NURSE ---
pt refuses to turn. states pt she is shifting weight . right arm up on pillows. edema noted same as before . pt reports pain with movement. pt reports passing gas no distress noted. pt requsts to be allowed to sleep for now. deyanira livingston
--- NOTE | 2019-10-23 06:36 | USCV_ITS ---
Emerald Subramanian Age: 79 Gender: F : 1940 Exam Date: 10/23/2019 07:02 Ordering Phys: Devan Craven MD Technologist: Cristofer Conrad [place] [facility] [place] Indication: RT ARM PAIN AND SWELLING HISTORY: PIC LINE IN RT ARM PROCEDURES: Venous duplex imaging was performed in only the right upper extremity. The following venous structures were evaluated: internal jugular vein, subclavian vein, axillary vein, and brachial veins. In addition, the basilic vein, cephalic vein, radial vein, and ulnar vein. FINDINGS: Acute DVT in the subclavian, axillary and basilic veins. PICC line is noted surrounded by thrombus. Remaining veins are patent. There is subcutaneous right upper extremity edema noted. CONCLUSIONS Acute right upper extremity deep venous thrombosis. Dr. Melina Cabrera DO (Electronically Signed) Final Date: 23 October 2019 07:24 S
[2019-10-23] MEDS: pantoprazole 40 mg SDV IVP ×2 (09:51→23:32)
[2019-10-23] MEDS: FUROsemide 10 mg/mL SDV 4mL 40 MG IVP (09:52)
[2019-10-23] MEDS: albumin 12.5 GM/50 ML VIAL IV (09:52)
[2019-10-23] MEDS: enoxaparin 40 mg/0.4 mL Syringe SUBCUT (10:47)
--- NOTE | 2019-10-23 11:52 | PC.NURSE ---
DR BARAJAS HERE TO ROUND ON PT. REMOVED NG & OLIVER DRAIN. PT TOLERATED WELL. HAS HAD SEVERAL LIQUID STOOL THIS MORNING. VISITORS AT BEDSIDE
--- NOTE | 2019-10-23 13:33 | P.PN_ITS ---
Subjective Subjective: Interval history: patient had multiple BM today, tolerating clears, no nausea or vomiting. Vitals/I&O/Wt Last Vital Signs Temp 98.0 F 10/23/19 06:00 Pulse 115 H 10/23/19 10:00 Resp 22 H 10/23/19 10:00 BP 120/62 10/23/19 10:00 Pulse Ox 97 10/23/19 09:00 10/22/19 10/23/19 10/23/19 22:59 06:59 14:59 Intake Total 1290.000 / 4132.000 655 / 4132.000 1629.5 / 1629.5 Output Total 740 / 1540 800 / 1540 80 / 80 Balance 550.000 / 2592.000 -145 / 2592.000 1549.5 / 1549.5 Weight last 48 hrs Weight 170 lb 1.6 oz Weight 163 lb 12.8 oz Physical Exam Narrative: EXAM NARRATIVE: Abdomen: soft, nontender, nondistended, incision healing well, OLIVER drain output was serous which was removed today, NG tube was removed Urinary Catheter Management^: Mazariegos: Cath Placed During This Visit: yes Urethral Indwelling: Yes Reason for Continuing Indwelling Catheter: Accurate Measurement of Urinary Output in Critically Ill Patients Urinary Catheter Date of Insertion: 10/15/19 Urinary Catheter Time of Insertion: 11:55 Data : 10/23/19 04:15 10/23/19 04:15 A&P Assessment and plan (1) S/P partial colectomy: DC NG tube Advance to full liquid diet Add Ensure Hopefully TPN can be discontinued tomorrow OLIVER drain was removed Plan to advance to GI soft diet tomorrow Continue with aggressive bowel regimen for now I will leave it up to Dr. Craven about discontinuing Mazariegos as well as transfer out of the ICU since the patient is being diuresed Status: Acute Code(s): Z90.49 - Acquired absence of other specified parts of digestive tract Attestations Medical Necessity Statement*: Status post colectomy with ileus appears to be resolving Coding Level of Care Code Acute Instrument Adjuster for Chg Fwd Diagnoses S/P partial colectomy Z90.49
--- NOTE | 2019-10-23 14:45 | PM.PN ---
Subjective Subjective: Interval history: Overall she seems to be doing quite a bit better. She is finally starting to pass some gas. No bowel movements yet. Pain seems to be better. She is more alert. No chest pain or shortness of breath. She has had quite a bit of swelling in her right arm. Some noted in her other extremities as well. Blood pressure is been higher and heart rate faster as well. Medications: Reviewed: Yes Vitals/I&O/Wt Last Vital Signs Temp 98.0 F 10/23/19 06:00 Pulse 117 H 10/23/19 14:00 Resp 28 H 10/23/19 14:00 BP 131/79 10/23/19 14:00 Pulse Ox 95 10/23/19 14:00 10/22/19 10/23/19 10/23/19 22:59 06:59 14:59 Intake Total 1290.000 / 4132.000 655 / 4132.000 1629.5 / 1629.5 Output Total 740 / 1540 800 / 1540 2580 / 2580 Balance 550.000 / 2592.000 -145 / 2592.000 -950.5 / -950.5 Weight last 48 hrs Weight 170 lb 1.6 oz Weight 163 lb 12.8 oz Physical Exam Narrative: EXAM NARRATIVE: General: No acute distress, Alert. Well nourished. Heart: Regular rate and rhythm. No murmurs, rubs or gallops. Normal capillary refill. Lungs: Lungs a bit diminished in the bases. No specific crackles appreciated. No wheezes or rhonchi. Abdomen: Occasional bowel sounds. Non-tender, mildly distended. No hepatosplenomegaly. No gaurding. Extremities: No clubbing, cyanosis, she has 1+ swelling both lower extremities. Significant swelling in her right arm. This is improved significantly from when I first saw her this morning. After we have given her albumin and Lasix. Urinary Catheter Management^: Mazariegos: Cath Placed During This Visit: yes Urethral Indwelling: Yes Reason for Continuing Indwelling Catheter: Accurate Measurement of Urinary Output in Critically Ill Patients Urinary Catheter Date of Insertion: 10/15/19 Urinary Catheter Time of Insertion: 11:55 Data : 10/23/19 04:15 10/23/19 04:15 A&P Assessment and plan (1) S/P partial colectomy: Neuro: [Patient is alert. No concerns from the standpoint.] Electrolytes: [Electrolytes are okay. Calcium is a little low but improved from yesterday.. Partially corrects due to low albumin..] Hematology: [. No obvious signs of GI bleeding at this time. Status post 2 units packed red blood cells on 10/21/2019. Hemoglobin is stable after that..] Cardiology: [Echocardiogram was okay. She was hypertensive this morning and tachycardic but this is much better after diuresing with albumin and Lasix.. DVT found on ultrasound this morning in her right upper extremity. Will finish this bag of TPN and probably pull the PICC line. We will start her on Lovenox but cautiously given her recent anemia and transfusion.] Pulmonary: [Has some mild pleural effusions.. Continue with respiratory therapy. Continue oxygen. Anticipate will be able to wean off this. Continue with incentive spirometer ] GI: [Patient started to have some bowel sounds and passing gas today. NG tube was removed this morning. She seemed to be tolerating that well. Continue with advancing her diet per surgery. Likely stop her TPN after this bag is complete.] Renal: [Patient is significantly hypervolemic at this point with third spacing. She has had a significant response to albumin and Lasix x1 dose this morning. We will probably repeat a BMP this afternoon. May repeat of dose of Lasix later this afternoon or tomorrow morning depending on how she does. Overall she is looking much better now than this morning..] ID: [Suspect some infection from her colectomy. Overall seems to be doing well. White blood cell count is doing okay. Continue with IV antibiotics and continue to monitor.] General: [Patient is getting can do leg pumps for DVT prophylaxis. We were holding off on anticoagulants due to her anemia but with a DVT in her arm we will go ahead and proceed with some Lovenox today.. She is on Protonix twice daily and will continue with physical therapy as well. - We will go ahead and transfer to the floor today. If she does well tomorrow probably look at transitioning to rehab in 2 days. ] Status: Acute Code(s): Z90.49 - Acquired absence of other specified parts of digestive tract (2) Small bowel obstruction: Status: Resolved Code(s): K56.609 - Unspecified intestinal obstruction, unspecified as to partial versus complete obstruction (3) Acute kidney injury: Status: Acute Code(s): N17.9 - Acute kidney failure, unspecified (4) Dehydration: Resolved. Status: Acute Code(s): E86.0 - Dehydration (5) Hyponatremia: Continue to monitor Status: Acute Code(s): E87.1 - Hypo-osmolality and hyponatremia (6) GI bleed: Status: Acute Code(s): K92.2 - Gastrointestinal hemorrhage, unspecified Attestations Medical Necessity Statement*: Patient is an 79-year-old female status post hemicolectomy due to adhesions and small bowel obstruction requiring continued inpatient treatment and monitoring. Coding Level of Care Code Acute Turbine Operator for g Fwd Diagnoses S/P partial colectomy Z90.49 Small bowel obstruction K56.609 Acute kidney injury N17.9 Dehydration E86.0 Hyponatremia E87.1 GI bleed K92.2
[2019-10-23 16:02] LABS: Anion Gap 12.2 (5-19); Blood Urea Nitrogen 25 mg/dL (8-23); Calcium 7.6 mg/dL (8.5-10.5); Carbon Dioxide 26 mmol/L (22-29); Chloride 104 mmol/L (98-107); Glucose 153 mg/dL (65-115); Osmolality Calculated 288 mOsm/kg (285-295); Potassium 3.2 mmol/L (3.5-5.1); Sodium 139 mmol/L (136-145)
[2019-10-23] MEDS: potassium chloride premix 40 MEQ/100 ML PREMIX 25 MEQ IV (17:19)
--- NOTE | 2019-10-23 17:59 | PC.NURSE ---
TRANSFER TO ROOM 262. FAMILY AWARE OF TRANSFER. BELONGINGS WITH PT. PHONE/CABLE STRANDER. WISHED WELL
[2019-10-24] VITALS (7 sets, daily range): BP systolic 105–139; BP diastolic 67–77; PULSE 76–116; RESP 18–20; TEMP 36.4–36.9; O2SAT 92–98
[2019-10-24 04:30] LABS: Eosinophils % 0.3 %; Hematocrit 35.9 % (37.0-47.0); Lymphocytes # 0.7 10^3/uL (0.8-4.8); Lymphocytes % 10.4 %; Mean Corpuscular HGB Conc 30.6 g/dL (30.0-36.0); Mean Corpuscular Volume 88.2 fL (81-99); Mean Platelet Volume 10.1 fL (7.4-10.4); Monocytes # 0.6 10^3/uL (0.2-0.9); Monocytes % 8.1 %; Neutrophils # 5.6 10^3/uL (1.8-7.7); Neutrophils % 80.6 %; Nucleated Red Blood Cells % 0 %; Platelet Count 223 10^3/cmm (130-400); Red Blood Count 4.07 10^6/uL (4.1-5.3); Red Cell Distribution Width 15.9 % (12.1-15.1)
[2019-10-24 05:07] LABS: Alanine Aminotransferase 10 U/L (0-33); Albumin Level 1.6 g/dL (3.5-5.2); Alkaline Phosphatase 93 IU/L (35-105); Anion Gap 13.6 (5-19); Aspartate Amino Transferase 18 U/L (0-32); Blood Urea Nitrogen 21 mg/dL (8-23); Calcium 7.7 mg/dL (8.5-10.5); Carbon Dioxide 25 mmol/L (22-29); Chloride 102 mmol/L (98-107); Globulin 3.5 g/dL (1.3-4.6); Glucose 132 mg/dL (65-115); Potassium 3.6 mmol/L (3.5-5.1); Sodium 137 mmol/L (136-145); Total Bilirubin 0.4 mg/dL (0.15-1.2); Total Protein 5.1 g/dL (6.6-8.7)
[2019-10-24] MEDS: piperacillin-tazobactam 3.375 GM in sodium chloride 0.9% (plus) 50 ML IV (05:50)
[2019-10-24] MEDS: enoxaparin 40 mg/0.4 mL Syringe SUBCUT (08:03)
[2019-10-24 08:20] LABS: C Reactive Protein 102.2 mg/L (0.0-4.9)
--- NOTE | 2019-10-24 11:57 | PC.SOCIAL ---
IMM Updated Updated pt on Pg2 IMM. No questions voiced. Provided pt a copy & left on pt's bedside table. Signed, dated, & timed original in chart.
--- NOTE | 2019-10-24 12:22 | PM.PN ---
Subjective Subjective: Interval history: Patient has been doing well denies any pain nausea vomiting, tolerating a full liquid diet and had multiple bowel movements Medications: Reviewed: Yes Vitals/I&O/Wt Last Vital Signs Temp 97.6 F 10/24/19 12:00 Pulse 76 10/24/19 12:00 Resp 20 H 10/24/19 12:00 BP 123/76 10/24/19 12:00 Pulse Ox 95 10/24/19 12:00 10/23/19 10/24/19 10/24/19 22:59 06:59 14:59 Intake Total 50 / 1969.5 290 / 1969.5 120 / 120 Output Total 600 / 3180 1000 / 1000 Balance -550 / -1210.5 290 / -1210.5 -880 / -880 Weight last 48 hrs Weight 175 lb 5 oz Weight 175 lb 6 oz Weight 170 lb 1.6 oz Physical Exam Narrative: EXAM NARRATIVE: AB soft, nondistended, nontender Urinary Catheter Management^: Mazariegos: Cath Placed During This Visit: yes, but has since been removed by the nurse Urethral Indwelling: Yes Reason for Continuing Indwelling Catheter: Decision to DC Catheter Urinary Catheter Date of Insertion: 10/15/19 Urinary Catheter Time of Insertion: 11:55 Date Urinary Catheter Removed: 10/24/19 Time Urinary Catheter Discontinued: 07:49 Data : 10/24/19 03:20 10/24/19 03:20 Micro: Microbiology 10/24/19 08:00 C.difficile Toxin B Gene (PCR) - Final Stool 10/24/19 08:00 Occult Blood (FIT) - Final Stool A&P Assessment and plan (1) S/P partial colectomy: Doing well DC to [facility] Status: Resolved Code(s): Z90.49 - Acquired absence of other specified parts of digestive tract Attestations Medical Necessity Statement*: DC [facility] today Coding Level of Care Code Acute Aquatic Ecologist for Chg Fwd Diagnoses S/P partial colectomy Z90.49
--- NOTE | 2019-10-24 14:19 | PM.DCS ---
Discharge Providers Date of Admission: 10/13/19 13:29 Date of Discharge: Date of Discharge: October 24, 2019 Attending Provider at Admission: Devan Craven MD Attending Provider at Discharge: Devan Craven MD Primary Care Provider: Devan Craven MD Diagnoses at Discharge Discharge Diagnosis (1) S/P partial colectomy: Status: Resolved Problem details: Performed on 10/19/2019 Reason for Visit Reason for Visit: Reason For Visit: abd pain, weakness Hospital Course Hospital Course: Patient is admitted to the hospital for recurrent small bowel obstruction. This was monitored for several days with no resolution. Patient was started on TPN therapy. She had an episode of presumed GI bleeding and required 2 units. Later in her course she had another 2 units for drop in her hemoglobin after she had had surgery. Patient had a exploratory lap for scopic surgery done. She was found to have severe adhesions and required a partial hemicolectomy. She had a protracted course after this. It took a while for her ileus to resolve. She was finally able to have a regular diet and was passing stools. Pain had resolved. NG was out without any complications. Immediately after surgery she had some significant hypotension and required pressors for couple of days. She subsequently was weaned off of this. She was a bit fluid overloaded and third space but she had 1 dose of albumin and IV Lasix which improved her hemodynamic status. Patient's hemoglobin was stable. Patient will be admitted to rehab. She should probably have some labs done in the next couple of days. Physical Exam Urinary Catheter Management^: Mazariegos: Cath Placed During This Visit: yes, but has since been removed by the nurse Urethral Indwelling: Yes Reason for Continuing Indwelling Catheter: Decision to DC Catheter Urinary Catheter Date of Insertion: 10/15/19 Urinary Catheter Time of Insertion: 11:55 Date Urinary Catheter Removed: 10/24/19 Time Urinary Catheter Discontinued: 07:49 Discharge Data Data Completed and Pending: Completed Studies During Hospitalization Category Date Time Status CT abdomen pelvis w con* [id number] Urge nt Cat Scan 10/13/19 12:08 Completed CXRP [XR chest 1V portable [id number]] S tat Exams 10/15/19 17:20 Completed XR KUB portable 7 4018 Routine Exams 10/15/19 07:43 Completed XR KUB portable 7 4018 Routine Exams 10/17/19 07:13 Completed XR abdomen min 2V 08968 Routine Exams 10/14/19 08:00 Completed XR abdomen min 2V 08632 Routine Exams 10/15/19 11:10 Completed XR abdomen min 2V 19457 Routine Exams 10/16/19 06:00 Completed XR abdomen min 2V 20043 Routine Exams 10/18/19 06:32 Completed XR chest 1V 06434 Routine Exams 10/17/19 09:03 Completed XR chest 1V juanis ble [id number] Routine Exams 10/17/19 07:13 Completed XR chest 1V juanis ble [id number] Stat Exams 10/13/19 14:05 Completed Pathology: Surgic al [PTH] Routine Pth 10/19/19 10:25 [place] [id number] Routin e Ultrasound 10/23/19 06:36 Completed US echo complete [CV echo complete* [id number]] Urgent Ultrasound 10/20/19 17:02 Completed Pending at discharge Category Date Time Status ES surgery / GI i mages Routine Exams 10/19/19 08:58 Taken Labs from last 24 hours 10/24/19 10/24/19 10/23/19 03:20 03:20 15:19 WBC 7.0 RBC 4.07 L Hgb 11.0 L Hct 35.9 L MCV 88.2 MCH 27.0 L MCHC 30.6 RDW 15.9 H Plt Count 223 MPV 10.1 Neut % (Auto) 80.6 Lymph % (Auto) 10.4 [place] % (Auto) 8.1 Eos % (Auto) 0.3 Baso % (Auto) 0.0 Neut # (Auto) 5.6 Lymph # (Auto) 0.7 L [place] # (Auto) 0.6 Eos # (Auto) 0.0 Baso # (Auto) 0.0 Nucleated RBC % (a uto) 0 Nucleated RBCs # 0.0 Sodium 137 139 Potassium 3.6 3.2 L Chloride 102 104 Carbon Dioxide 25 26 Anion Gap 13.6 12.2 BUN 21 25 H Creatinine 0.8 0.8 Glucose 132 H 153 H Calculated Osmolal ity 288 Calcium 7.7 L 7.6 L Total Bilirubin 0.4 AST 18 ALT 10 Alkaline Phosphata se 93 C-Reactive Protein 102.2 H Total Protein 5.1 L Albumin 1.6 L Globulin 3.5 Vitals: Last Vital Signs Temp 97.6 F 10/24/19 12:00 Pulse 76 10/24/19 12:00 Resp 20 H 10/24/19 12:00 BP 123/76 10/24/19 12:00 Pulse Ox 95 10/24/19 12:00 Discharge Plan Discharge Patient Disposition: Rehab Fac w Plan Readm Condition: Stable Prescriptions: New pantoprazole [Protonix] 40 mg tablet,delayed release (DR/EC) 40 mg PO BID 14 Days Qty: 28 RF: 0 docusate sodium 100 mg Capsule 100 mg PO BID Qty: 40 RF: 0 Eliquis 5 mg tablet 5 mg PO BID Qty: 60 RF: 0 Discontinued lisinopril 20 mg Tablet 20 mg PO DAILY RF: 0 pravastatin 20 mg Tablet 20 mg PO DAILY RF: 0 aspirin [Aspirin Low Dose] 81 mg Tablet,Delayed Release (Dr/Ec) 81 mg PO DAILY RF: 0 cefuroxime axetil 500 mg tablet 500 mg PO BID RF: 0 fluticasone propionate 50 mcg/actuation spray,suspension 1 spray INTRANASAL DAILY PRN (Reason: unknown) RF: 0 Discharge Orders: Discharge Order (Routine); Ordered 10/24/19 Ordered By: Devan Craven Referrals: Tommy Han MD [Physician] - 7-10 days Devan Craven MD [Primary Care Provider] - (Follow-up with Dr. Craven after your discharge from rehab) Discharge Diet: GI Soft Discharge Activity: Increase activity as tolerated Activity Restrictions/Additional Instructions: ok to shower Advised to return to ER in case of nausea, vomiting, redness or drainage from incision -Discharged to rehab facility with the rehab facilities medical device sales representative as attending physician. -Check a CBC and a CMP in 2 days. Discharge Attestations Time Spent in Discharge Care*: greater than 30 min Quality Metrics Clinical Quality Measures During this hospital stay, did patient experience: None Coding Level of Care Code Acute Steel Die Engraver for Chg Fwd Diagnoses S/P partial colectomy Z90.49
--- NOTE | 2019-10-24 15:30 | PC.NURSE ---
bladder scanned pt prior to discharge. measured only 150ml.
--- NOTE | 2019-10-24 15:40 | PC.NURSE ---
report called to rhonda COLLINS at [facility]. pt is stable at this time. waiting for transportation
== END 2019-10-24 16:20 | DRG 330 ==
LOC: ER 14:15 → MEDSURG 14:28 → ICU 10-19 09:18 → MEDSURG 10-23 17:23
PROVIDERS: Internal Medicine; Surgery; Admitting Provider Family Medicine; Emergency Provider Emergency Medicine; Family Provider Family Medicine; PCP Family Medicine; Visit Provider Family Medicine
PROC: 0DTE4ZZ Resection of Large Intestine, Percutaneous Endoscopic Approach (ICD-10-PCS; principal; 2019-10-19 08:00)
DX: K56.50 Intestinal adhesions [bands], unspecified as to partial versus complete obstruction (principal); N17.9 Acute kidney failure, unspecified; E87.1 Hypo-osmolality and hyponatremia; K92.2 Gastrointestinal hemorrhage, unspecified; E78.5 Hyperlipidemia, unspecified; I10 Essential (primary) hypertension; Z90.710 Acquired absence of both cervix and uterus; Z96.643 Presence of artificial hip joint, bilateral; Z87.891 Personal history of nicotine dependence; E86.0 Dehydration; E88.09 Other disorders of plasma-protein metabolism, not elsewhere classified
CPT/HCPCS: 12345; 36415; 36430; 36592; 45915; 51702; 71045; 74018; 74019; 74177; 80048; 80053; 81001; 82274; 83605; 83690; 83735; 84100; 85025; 86140; 86850; 86900; 87493; 88309; 93005; 93306; 93971; 96360; 96361; 96365; 96366; 96372; 96375; 97116; 97161; 97167; 97530; 97535; 99282; C1751; C9113; C9290; J0131; J0330; J0696; J1650; J1940; J2001; J2270; J2370; J2405; J2543; J2704; J2710; J3010; J3480; J3490; J7030; J7040; P9016; P9047; Q9967

== ENCOUNTER 2019-10-28 07:44 | Inpatient (IN) | payer MEDICARE, SELFPAY ==
[2019-10-28] VITALS (10 sets, daily range): BP systolic 106–138; BP diastolic 69–88; PULSE 73–121; RESP 16–28; TEMP 36.7–37.1; O2SAT 91–94; BMI 22.8
--- NOTE | 2019-10-28 07:49 | ED_ITS ---
Entered by Kimber Oden, acting as scribe for Figueroa Escamilla DO HPI - GI Bleed General: Chief complaint: GI Bleed Stated complaint: RECTAL BLEED Time Seen by Provider: 10/28/19 07:46 Source: EMS Mode of arrival: EMS Limitations: no limitations History of Present Illness: HPI Narrative: 79 yo female presents with dark stools. per pt she has had these symptoms from her surgery [address] Han, he removed a mass that was formed by her hysterectomy. pt denies any other symptoms. [facility] sent pt to ED for possible GI bleed. MD complaint: other (dark stools) Onset (ago): day(s) (1 week ago) Pain Consistency: constant Severity: mild Exacerbating factors: bowel movement Associated symptoms: Reports no associated symptoms Treatments Prior to Arrival: none Review of Systems General: Reports: 10 or more systems reviewed and unremarkable except in HPI and below PFSH ED PFSH: Statuses (acute, chronic, etc) shown below reflect problem list status as previously entered and may not be historically accurate Medical History Hyperlipidemia Hypertension Small bowel obstruction Surgical History H/O: hysterectomy S/P hip replacement bilateral S/P partial colectomy Performed on 10/19/2019 Family History Other CAD (coronary artery disease) Social History Smoking and tobacco status: never smoked Alcohol intake: never Lives independently: Yes Housing: House Physical Exam Const: COMMON NORMALS: no apparent distress, average body habitus, oriented x3, no limitations, healthy appearing, alert and well nourished HENMT: COMMON NORMALS: normocephalic, head/scalp atraumatic, hearing grossly normal bilaterally, external ears normal, EAC's normal, TM's normal bilaterally, external nose normal, nasal mucous membranes and turbinates normal, moist oral mucous membranes, oropharynx normal, dentition normal and gingiva normal HEAD & SCALP: normocephalic and atraumatic NOSE: external nose normal and nasal mucous membranes and turbinates normal EXTERNAL EAR: Yes external ears normal EXTERNAL AUDITORY CANAL: EAC's normal TYMPANIC MEMBRANE: TM's normal bilaterally Eye: COMMON NORMALS: PERRL, EOMs intact bilaterally, conjunctivae normal, no scleral icterus, no papilledema, normal visual singh by confrontation and fundi normal bilaterally CONJUNCTIVA: Yes conjunctivae normal PUPIL: Yes PERRL DIRECT OPHTHALMOSCOPY: Yes no papilledema and Yes fundi normal bilaterally Neck/C-Spine: COMMON NORMALS: full ROM, no lymphadenopathy, supple, no meningeal signs, no JVD, thyroid normal and no carotid bruits THYROID: thyroid normal Chest: COMMONS NORMALS: inspection of chest normal and palpation of chest normal Resp: COMMON NORMALS: normal respiratory effort, no retractions, no use of accessory muscles, clear to auscultation bilaterally and percussion normal AUSCULTATION: clear to auscultation bilaterally PERCUSSION: percussion normal Cardio: COMMON NORMALS: no JVD, regular rate, regular rhythm, S1 normal heart sound, S2 normal heart sound, no gallops, no clicks, no murmurs, no rub and peripheral pulses 2+ throughout RATE: regular rate RHYTHM: regular rhythm HEART SOUNDS: S1 normal and S2 normal PERIPHERAL PULSES: pulses 2+ throughout : COMMON NORMALS: Yes no CVA tenderness and Yes external appearance normal BLADDER/KIDNEY EXAM: Yes no CVA tenderness Back/Pelvis: COMMON NORMALS: no CVA tenderness, thoracic and lumbar spine normal to inspection, no thoracic nor lumbar tenderness, thoraco-lumbar ROM normal and straight leg raise negative bilaterally Extremity: COMMON NORMALS: normal to inspection, full ROM, normal capillary refill, no joint enlargement, no clubbing, cyanosis or edema, no calf tenderness and no pedal edema Neuro: COMMON NORMALS: oriented x3 SENSORIUM/ORIENTATION: Yes alert MENINGEAL SIGNS: Yes no meningeal signs Skin: COMMON NORMALS: no rashes or lesions noted, no wounds, skin turgor normal, no jaundice, no petechiae and no mottling GENERAL SKIN EXAM: no rashes or lesions noted and turgor normal Course Vital Signs: Vital signs: Vital Signs Temperature 98.0 F 10/28/19 07:45 Pulse Rate 121 H 10/28/19 08:02 Respiratory Rate 18 10/28/19 08:02 Blood Pressure 121/88 10/28/19 08:02 Pulse Oximetry 93 10/28/19 08:02 MDM - GI Bleed Lab Data: Labs: Lab Results 10/28/19 10/28/19 10/28/19 Range/Units 08:55 08:55 08:55 WBC 8.8 (4.0-10.0) 10^3/ uL RBC 3.61 L (4.1-5.3) 10^6/u L Hgb 10.1 L (11.5-15.3) g/dL Hct 31.7 L (37.0-47.0) % MCV 87.8 (81-99) fL MCH 28.0 (28.0-34.0) pg MCHC 31.9 (30.0-36.0) g/dL RDW 15.7 H (12.1-15.1) % Plt Count 434 H (130-400) 10^3/c mm MPV 9.9 (7.4-10.4) fL Neut % (Auto) 90.2 % Lymph % (Auto) 5.8 % [place] % (Auto) 3.1 % Eos % (Auto) 0.2 % Baso % (Auto) 0.1 % Neut # (Auto) 7.9 H (1.8-7.7) 10^3/u L Lymph # (Auto) 0.5 L (0.8-4.8) 10^3/u L [place] # (Auto) 0.3 (0.2-0.9) 10^3/u L Eos # (Auto) 0.0 (0.0-0.8) 10^3/u L Baso # (Auto) 0.0 (0.0-0.1) 10^3/u L Nucleated RBC % (a uto) 0 % Nucleated RBCs # 0.0 /100WBC PT 19.10 H (10.5-13.3) SECO NDS INR 1.55 H (0.8-1.2) APTT 35.5 (23.9-36.7) SECO NDS Sodium 141 (136-145) mmol/L Potassium 2.8 L* (3.5-5.1) mmol/L Chloride 99 (98-107) mmol/L Carbon Dioxide 23 (22-29) mmol/L Anion Gap 21.8 H (5-19) BUN 15 (8-23) mg/dL Creatinine 0.6 (0.5-0.9) mg/dL Glucose 90 (65-115) mg/dL Lactate (0.5-2.2) mmol/L Calcium 7.3 L (8.5-10.5) mg/dL Total Bilirubin 0.4 (0.15-1.2) mg/dL AST 29 (0-32) U/L ALT 21 (0-33) U/L Alkaline Phosphata se 78 (35-105) IU/L Total Protein 5.6 L (6.6-8.7) g/dL Albumin 2.1 L (3.5-5.2) g/dL Globulin 3.5 (1.3-4.6) g/dL Lipase 150 H (13-60) U/L 10/28/19 Range/Units 08:55 WBC (4.0-10.0) 10^3/ uL RBC (4.1-5.3) 10^6/u L Hgb (11.5-15.3) g/dL Hct (37.0-47.0) % MCV (81-99) fL MCH (28.0-34.0) pg MCHC (30.0-36.0) g/dL RDW (12.1-15.1) % Plt Count (130-400) 10^3/c mm MPV (7.4-10.4) fL Neut % (Auto) % Lymph % (Auto) % [place] % (Auto) % Eos % (Auto) % Baso % (Auto) % Neut # (Auto) (1.8-7.7) 10^3/u L Lymph # (Auto) (0.8-4.8) 10^3/u L [place] # (Auto) (0.2-0.9) 10^3/u L Eos # (Auto) (0.0-0.8) 10^3/u L Baso # (Auto) (0.0-0.1) 10^3/u L Nucleated RBC % (a uto) % Nucleated RBCs # /100WBC PT (10.5-13.3) SECO NDS INR (0.8-1.2) APTT (23.9-36.7) SECO NDS Sodium (136-145) mmol/L Potassium (3.5-5.1) mmol/L Chloride (98-107) mmol/L Carbon Dioxide (22-29) mmol/L Anion Gap (5-19) BUN (8-23) mg/dL Creatinine (0.5-0.9) mg/dL Glucose (65-115) mg/dL Lactate 1.2 (0.5-2.2) mmol/L Calcium (8.5-10.5) mg/dL Total Bilirubin (0.15-1.2) mg/dL AST (0-32) U/L ALT (0-33) U/L Alkaline Phosphata se (35-105) IU/L Total Protein (6.6-8.7) g/dL Albumin (3.5-5.2) g/dL Globulin (1.3-4.6) g/dL Lipase (13-60) U/L Discharge Plan Discharge Clinical Impression: GI bleed Qualifiers: GI bleed type/associated pathology: anorectal hemorrhage Qualified Code(s): K62.5 - Hemorrhage of anus and rectum Condition: Fair Prescriptions: No Action Milk of Magnesia 400 mg/5 mL Suspension 30 ml PO DAILY PRN (Reason: Constipation) RF: 0 Dulcolax (bisacodyl) 10 mg Suppository 10 mg NV DAILY PRN (Reason: Constipation) RF: 0 Lasix 20 mg Tablet 20 mg PO DAILY RF: 0 Biotene Dry Mouth Oral Rinse Mouthwash See Rx Instructions .ROUTE .COMPLEX RF: 0 docusate sodium 100 mg Capsule 100 mg PO BID Qty: 40 RF: 0 pantoprazole [Protonix] 40 mg tablet,delayed release (DR/EC) 40 mg PO BID 14 Days Qty: 28 RF: 0 Eliquis 5 mg tablet 5 mg PO BID Qty: 60 RF: 0 Referrals: Devan Craven MD [Primary Care Provider] - Coding Level of Care Code ED Form Raiser for Chg Fwd Exam Problem Focused The documentation recorded by the Akshat jaquez Bridget Annette, accurately reflects the service I personally performed and the decisions made by Andi conroy Donald P, DO Oct 28, 2019 07:44
--- NOTE | 2019-10-28 08:00 | CT_ITS ---
WS: [id number] CT scan of the abdomen and pelvis with IV contrast. Additional two-dimensional coronal and sagittal r econstruction was performed. 10/28/2019 Clinical Data: gi bleed Comparison: CT abdomen and pelvis, 10/13/2019. DLP: 820.[address] scans at [facility] use at least one of these dose optimization techniques: automat ed exposure control; mA and/or kV adjustment per patient size (includes targeted exams where dose is matched to clinical indication); or iterative reconstruction. Findings: The lower lungs show moderate bilateral pleural effusions. No nodules or masses are seen. The heart i s slightly enlarged. Subcutaneous fluid throughout the abdominal tissues is noted. The site of the re cent midline surgery is marked with surgical sutures. The liver, gallbladder, spleen, adrenal glands and pancreas are normal. There is a small cyst in the central portion of the right lobe of the liver. The kidneys show equal bilateral contrast excretion with masses, hydronephrosis or renal calculi. The re is a small right renal cyst.. The abdominal aorta is normal in size with calcification in the wall.. No appendicitis or diverticulitis is seen. Diverticulosis of the descending and sigmoid colon is seen . The stomach, small bowel and colon show no evidence of obstruction or dilatation. There is fluid in the small bowel and colon. There are surgical andria in the right lower quadrant. There is a small amount of ascites in the abdomen. No abscess, adenopathy, mass or free air is seen. The bladder diffi cult to see because of artifact from the hip arthroplasties. Bilateral hip arthroplasties are present . Severe degenerative change with a levoscoliosis of the lumbar spine is present. CT/CT abdomen pelvis w con* [id number] Impression: 1. Negative for small bowel obstruction. 2. Moderate amount of fluid throughout the abdomen with subcutaneous fluid in t he soft tissues. 3. Recent right lower quadrant surgery. 4. Fluid in the small bowel and colon which can be seen with gastroenteritis.
--- NOTE | 2019-10-28 08:00 | XR_ITS ---
WS: [id number] Portable AP upright chest, 10/28/2019 Clinical Data: gi bleed Comparison: Portable chest, 10/17/2019 Findings: There are moderate bilateral pleural effusions. The pulmonary vascularity is mildly increas ed. No pneumonia or pneumothorax is present. The aortic arch and descending aorta are tortuous. XR/XR chest 1V portable [id number] Impression: 1. Moderate bilateral pleural effusions. 2. Mild pulmonary vascular congestion. 3. Atherosclerosis.
--- NOTE | 2019-10-28 08:00 | PC.NURSE ---
pt recently had abd surgery. surgical wound is healing appropriately
[2019-10-28] MEDS: sodium chloride 0.9% 500 ML IV (08:04)
[2019-10-28] MEDS: iohexol 300 mg/mL 100 mL Btl IV (08:13)
--- NOTE | 2019-10-28 08:51 | PC.NURSE ---
assisted pt to bedside commode
[2019-10-28 09:11] LABS: Basophils % 0.1 %; Eosinophils % 0.2 %; Hematocrit 31.7 % (37.0-47.0); Hemoglobin 10.1 g/dL (11.5-15.3); Lymphocytes # 0.5 10^3/uL (0.8-4.8); Lymphocytes % 5.8 %; Mean Corpuscular HGB Conc 31.9 g/dL (30.0-36.0); Mean Corpuscular Volume 87.8 fL (81-99); Mean Platelet Volume 9.9 fL (7.4-10.4); Monocytes # 0.3 10^3/uL (0.2-0.9); Monocytes % 3.1 %; Neutrophils # 7.9 10^3/uL (1.8-7.7); Neutrophils % 90.2 %; Nucleated Red Blood Cells % 0 %; Platelet Count 434 10^3/cmm (130-400); Red Blood Count 3.61 10^6/uL (4.1-5.3); Red Cell Distribution Width 15.7 % (12.1-15.1); White Blood Count 8.8 10^3/uL (4.0-10.0)
[2019-10-28 09:16] LABS: INR 1.55 (0.8-1.2)
[2019-10-28 09:17] LABS: Partial Thromboplastin Time 35.5 SECONDS (23.9-36.7)
[2019-10-28 09:22] LABS: Lactate (Lactic Acid level) 1.2 mmol/L (0.5-2.2)
[2019-10-28 09:23] LABS: Alanine Aminotransferase 21 U/L (0-33); Albumin Level 2.1 g/dL (3.5-5.2); Alkaline Phosphatase 78 IU/L (35-105); Anion Gap 21.8 (5-19); Aspartate Amino Transferase 29 U/L (0-32); Blood Urea Nitrogen 15 mg/dL (8-23); Calcium 7.3 mg/dL (8.5-10.5); Carbon Dioxide 23 mmol/L (22-29); Chloride 99 mmol/L (98-107); Globulin 3.5 g/dL (1.3-4.6); Glucose 90 mg/dL (65-115); Lipase 150 U/L (13-60); Sodium 141 mmol/L (136-145); Total Bilirubin 0.4 mg/dL (0.15-1.2); Total Protein 5.6 g/dL (6.6-8.7)
[2019-10-28 09:26] LABS: Potassium 2.8 mmol/L (3.5-5.1)
--- NOTE | 2019-10-28 09:48 | PC.NURSE ---
called daughter to inform of pt care and plan of care for pt
[2019-10-28] MEDS: potassium chloride premix 40 MEQ/100 ML PREMIX 25 MEQ IV (09:54)
[2019-10-28] MEDS: pantoprazole 40 MG in sodium chloride 0.9% (plus) 100 ML 20 MG IV ×3 (10:23→21:57)
[2019-10-28] MEDS: sodium chloride 0.9% 1,000 ML 100 ML IV ×2 (11:32→21:18)
--- NOTE | 2019-10-28 18:01 | USCV_ITS ---
Emerald Subramanian Age: 79 Gender: F : 1940 Exam Date: 10/28/2019 18:32 Ordering Phys: Devan Craven MD Technologist: Chitra Rogers [place] [facility] [place] HISTORY: Recent history of right upper extremity DVT PROCEDURES: Venous duplex imaging was performed in only the right upper extremity. Serial compression, augmentation maneuvers, and spectral Doppler flow evaluation were performed. FINDINGS: Normal 2-D, color Doppler and phasicity noted in ther right upper extremity venous system extending from the right internal jugular vein through the main forearm. No thrombosis or occlusion noted. CONCLUSIONS No evidence for right upper extremity deep venous thrombosis. Dr. Melina Cabrera DO (Electronically Signed) Final Date: 29 October 2019 11:27 S
--- NOTE | 2019-10-28 18:14 | P.HP_ITS ---
Providers/Chief Complaint Admitting Physician: Devan Craven MD Primary Care Provider: Devan rCaven MD Chief Complaint: RECTAL BLEED History of Present Illness Emerald Subramanian is a 79 year old female who was released from the hospital on the seventh of this month for prolonged hospital course following small bowel obstruction and partial hemicolectomy. During her stay she had had a couple episodes of acute anemia felt to be from acute GI bleeding. First 1 was shortly after she was started on anticoagulation for DVT prophylaxis at the start of her hospitalization. She required 2 units at that time. She had it happen again later in her hospital course as well. Patient ended up having a DVT in her right arm from a PICC line placement. At that point she was discharged on Eliquis at 5 mg twice a day and Protonix 40 mg twice a day. She was not given the loading dose of Eliquis. She had been doing well at rehab until last night when she had a couple episodes of blood noted in her stools. Sounds like it was a significant amount. Dark red blood. She also had some black stools today. Patient was brought to the ER for further evaluation. Overall she is feeling quite well. No chest pain or shortness of breath. No fevers or chills. No increased abdominal pain nausea or vomiting. Hospital Course Hospital Course: Patient is admitted to the hospital for recurrent small bowel obstruction. This was monitored for several days with no resolution. P ana maría was started on TPN therapy. She had an episode of presumed GI bleeding and required 2 units. Later in her course she had another 2 units for drop in her hemoglobin after she had had surgery. Patient had a exploratory lap for scopic surgery done. She was found to have severe adhesions and required a partial hemicolectomy. She had a protracted course after this. It took a while for her ileus to resolve. She was finally able to have a regular diet and was passing stools. Pain had resolved. NG was out without any complications. Immediately after surgery she had some significant hypotension and required pressors for couple of days. She subsequently was weaned off of this. She was a bit fluid overloaded and third space but she had 1 dose of albumin and IV Lasix which improved her hemodynamic status. Patient's hemoglobin was stable. Patient will be admitted to rehab. She should probably have some labs done in the next couple of days. Review of Systems Narrative: General: No chronic fevers or chronic weight changes. HEENT: No acute changes in vision. No acute hearing loss. No new difficulty swallowing. Heart: No new chest pain or recent issues with coronary disease. Lungs: No history of TB. No chronic lung disease. GI: No hepatitis. No chronic nausea or vomitting. Renal: No dysuria or frequency. No hematuria Neuro: No acute neurological changes or deficits. Musculoskeletal: No acutely worsening joint pain or swelling. Medications/Allergies Home Medications Medication Instructions Recorded Confirmed Last Taken Type bisacodyl [Dulcolax (bisacodyl)] 10 mg SD DAILY PRN 10/28/19 10/28/19 Unknown History furosemide [Lasix] 20 mg PO DAILY 10/28/19 10/28/19 10/27/19 History magnesium hydroxide [Milk of 30 ml PO DAILY PRN 10/28/19 10/28/19 Unknown History Magnesia] saliva substitute combo no.9 See Rx Instructions .ROUTE .COMPLEX 10/28/19 10/28/19 Unknown History [Biotene Dry Mouth Oral Rinse] Allergies Allergy/AdvReac Type Severity Reaction Status Date / Time ciprofloxacin [From Cipro] Allergy Unknown Unknown Verified 10/28/19 07:51 amoxicillin Allergy ALGY-Rash Verified 10/28/19 07:51 prednisone Allergy ADR-Diarrhe Verified 10/28/19 07:51 a Sulfa (Sulfonamide Allergy ALGY-Redness Verified 10/28/19 07:51 Antibiotics) of Skin PFSH Acute PFSH: Statuses (acute, chronic, etc) shown below reflect problem list status as previously entered and may not be historically accurate Medical History Hyperlipidemia Hypertension Small bowel obstruction Surgical History H/O: hysterectomy S/P hip replacement bilateral S/P partial colectomy Performed on 10/19/2019 Family History Other CAD (coronary artery disease) Social History Smoking and tobacco status: never smoked Alcohol intake: never Lives independently: Yes Housing: House Vitals/I&O/Wt Last Vital Signs Temp 98.7 F 10/28/19 16:00 Pulse 100 10/28/19 16:00 Resp 16 10/28/19 16:00 BP 118/79 10/28/19 16:00 Pulse Ox 94 10/28/19 16:00 10/28/19 10/28/19 10/28/19 06:59 14:59 22:59 Intake Total 100 / 100 Balance 100 / 100 Weight last 48 hrs Weight 137 lb Physical Exam Narrative: EXAM NARRATIVE: General: No acute distress, Alert. Well nourished. HEENT: PERRLA, EOMI. vision grossly normal. Throat clear. Neck: supple, no adenopathy. Heart: Regular rate and rhythm. No murmurs, rubs or gallops. Normal capillary refill. Lungs: Clear to auscultation. No wheezes, rhonchi or rales. Abdomen: Positive bowel sounds. Non-tender, non-distended. No hepatosplenomegaly. No gaurding. Extremities: No clubbing, cyanosis, or edema. Negative Elizabeth's. Data : 10/28/19 08:55 10/28/19 08:55 A&P Assessment and plan (1) GI bleed: -Clinically she seems stable at this time. She was on Eliquis 5 mg twice a day at rehab. She states that her stools are starting to get more normal now. Vital signs are stable. -We will continue with the Protonix drip. -Continue with telemetry. -Proceed with ultrasound of her right upper extremity. We will reevaluate this DVT to see if there is some resolution. Repeat her hemoglobin again this evening and in the morning. If it remains stable we will have a discussion with her about resuming lower dosage of anticoagulation or stopping this altogether. Risks of a GI bleed discussed with her. Status: Acute Qualifiers: GI bleed type/associated pathology: anorectal hemorrhage Qualified Code(s): K62.5 - Hemorrhage of anus and rectum Code(s): K92.2 - Gastrointestinal hemorrhage, unspecified (2) S/P partial colectomy: Status: Acute Code(s): Z90.49 - Acquired absence of other specified parts of digestive tract (3) Deep vein thrombosis, upper right extremity: Status: Acute Code(s): I82.621 - Acute embolism and thrombosis of deep veins of right upper extremity Attestations Medical Necessity Statement*: 79-year-old female with a acute GI bleed requiring inpatient monitoring and treatment at this time. Depending on how her blood counts trend her care may pass over 2 midnights. 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
[2019-10-28 19:02] LABS: Hematocrit 29.4 % (37.0-47.0); Hemoglobin 8.5 g/dL (11.5-15.3); Mean Corpuscular HGB Conc 28.9 g/dL (30.0-36.0); Mean Corpuscular Hemoglobin 26.3 pg (28.0-34.0); Platelet Count 389 10^3/cmm (130-400); Red Blood Count 3.23 10^6/uL (4.1-5.3); Red Cell Distribution Width 15.9 % (12.1-15.1); White Blood Count 7.4 10^3/uL (4.0-10.0)
[2019-10-28 21:31] LABS: Absolute Segmented Neutrophil 6.4 10/cmm (1.6-7.1); Lymphocytes 12 %; Monocytes Absolute 0.1 10^3/cmm (0.1-0.6); Segmented Neutrophils 87 %; Total Cells Counted 100 (0-100)
[2019-10-28 21:32] LABS: Anisocytosis 1+; Giant Platelets 1+; Ovalocytes 1+; Platelet Estimate Normal (Normal); Poikilocytosis 1+
[2019-10-29] VITALS (20 sets, daily range): BP systolic 125–158; BP diastolic 68–87; PULSE 75–136; RESP 16–21; TEMP 36.3–37.1; O2SAT 91–97
[2019-10-29] MEDS: pantoprazole 40 MG in sodium chloride 0.9% (plus) 100 ML 20 MG IV (02:06)
--- NOTE | 2019-10-29 03:51 | PC.NURSE ---
Low Oxygen: Routine vitals showed pt with SPO2 at 84% on RA. She awoke easily and was placed on 2L NC and quickly came up to 91-92%.
[2019-10-29 04:42] LABS: Basophils % 0.2 %; Eosinophils % 0.5 %; Hematocrit 22.8 % (37.0-47.0); Hemoglobin 7.1 g/dL (11.5-15.3); Lymphocytes # 0.5 10^3/uL (0.8-4.8); Lymphocytes % 9.1 %; Mean Corpuscular HGB Conc 31.1 g/dL (30.0-36.0); Mean Corpuscular Hemoglobin 26.6 pg (28.0-34.0); Mean Corpuscular Volume 85.4 fL (81-99); Mean Platelet Volume 10.1 fL (7.4-10.4); Monocytes # 0.3 10^3/uL (0.2-0.9); Neutrophils # 4.8 10^3/uL (1.8-7.7); Neutrophils % 83.7 %; Nucleated Red Blood Cells % 0 %; Platelet Count 381 10^3/cmm (130-400); Red Blood Count 2.67 10^6/uL (4.1-5.3); Red Cell Distribution Width 15.9 % (12.1-15.1); White Blood Count 5.7 10^3/uL (4.0-10.0)
[2019-10-29 04:51] LABS: Alanine Aminotransferase 14 U/L (0-33); Albumin Level 1.6 g/dL (3.5-5.2); Alkaline Phosphatase 56 IU/L (35-105); Anion Gap 19.5 (5-19); Aspartate Amino Transferase 20 U/L (0-32); Blood Urea Nitrogen 17 mg/dL (8-23); Calcium 6.8 mg/dL (8.5-10.5); Carbon Dioxide 20 mmol/L (22-29); Chloride 105 mmol/L (98-107); Glucose 73 mg/dL (65-115); Sodium 142 mmol/L (136-145); Total Bilirubin 0.3 mg/dL (0.15-1.2); Total Protein 4.6 g/dL (6.6-8.7)
[2019-10-29 04:58] LABS: Potassium 2.5 mmol/L (3.5-5.1)
--- NOTE | 2019-10-29 07:00 | ECG_ITS ---
Measurements Intervals [place] Rate: 91 P: 17 GA: 123 QRS: -38 QRSD: 89 T: -19 QT: 375 QTc: 462 SINUS RHYTHM WITH OCCASIONAL SUPRAVENTRICULAR PREMATURE COMPLEXES MARKED LEFT AXIS DEVIATION [QRS AXIS < -30] MODERATE T-WAVE ABNORMALITY, CONSIDER ANTERIOR ISCHEMIA [-0.1+ mV T WAVE IN V3/V4] Compared to ECG 10/13/2019 12:17:41 T-wave abnormality now present Possible ischemia now present Sinus tachycardia no longer present Myocardial infarct finding no longer present Electronically Signed On 10-29-2019 20:58:38 PACKING ATTENDANT by Luis Diamond M.D. [email or web address]
[2019-10-29] MEDS: pantoprazole 40 mg SDV IVP ×2 (07:43→18:10)
[2019-10-29] MEDS: potassium chloride premix 40 MEQ/100 ML PREMIX 25 MEQ IV (09:07)
--- NOTE | 2019-10-29 11:53 | PM.CONSULT ---
Providers/Reason For Consult Consulting Physican/Specialty*: Primary care Reason for Consult*: GI bleed Attending Physician: Devan Craven MD Primary Care Provider: Devan Craven MD History of Present Illness History of Present Illness Emerald Subramanian is a 79 year old female who had recent been discharged from the hospital after partial right colectomy for ischemic bowel secondary to small bowel obstruction. Patient had developed DVT in the right upper extremities after a PICC line was placed and [facility]. She denies any abdominal pain nausea or vomiting. She states that she had fresh blood per rectum yesterday but now is more of black stools. Her hemoglobin is down to 7.1 and she is due to receive blood. Review of Systems General: Reports: 10 or more systems reviewed and unremarkable except in HPI and below Meds/Allergies Home Medications and Allergies Home Medications Medication Instructions Recorded Confirmed Type bisacodyl [Dulcolax (bisacodyl)] 10 mg NM DAILY PRN 10/28/19 10/28/19 History furosemide [Lasix] 20 mg PO DAILY 10/28/19 10/28/19 History magnesium hydroxide [Milk of 30 ml PO DAILY PRN 10/28/19 10/28/19 History Magnesia] saliva substitute combo no.9 See Rx Instructions .ROUTE .COMPLEX 10/28/19 10/28/19 History [Biotene Dry Mouth Oral Rinse] Allergies Allergy/AdvReac Type Severity Reaction Status Date / Time ciprofloxacin [From Cipro] Allergy Unknown Unknown Verified 10/28/19 07:51 amoxicillin Allergy ALGY-Rash Verified 10/28/19 07:51 prednisone Allergy ADR-Diarrhe Verified 10/28/19 07:51 a Sulfa (Sulfonamide Allergy ALGY-Redness Verified 10/28/19 07:51 Antibiotics) of Skin Current Medications Current Medications Generic Name Dose Route Start Last Admin Trade Name Freq PRN Reason Stop Dose Admin Docusate Sodium 100 mg 10/28/19 18:00 10/29/19 09:08 Colace PO Not Given BID SUZETTE Potassium Chloride 40 meq in 100 mls @ 25 mls/hr 10/29/19 05:45 10/29/19 09:07 K-Lamberto IV 10/29/19 13:44 25 mls/hr Q4H SUZETTE Administration Pantoprazole Sodium 40 mg 10/29/19 07:15 10/29/19 07:43 Protonix IVP 40 mg Q12H SUZETTE Administration PFSH Acute PFSH: Statuses (acute, chronic, etc) shown below reflect problem list status as previously entered and may not be historically accurate Medical History (Updated 10/28/19 @ 18:20 by Devan Craven MD) Deep vein thrombosis, upper right extremity Hyperlipidemia Hypertension Small bowel obstruction Surgical History H/O: hysterectomy S/P hip replacement bilateral S/P partial colectomy Performed on 10/19/2019 Family History Other CAD (coronary artery disease) Social History Smoking and tobacco status: never smoked Alcohol intake: never Lives independently: Yes Housing: House Vitals/I&O/Wt Last Vital Signs Temp 98.0 F 10/29/19 11:00 Pulse 75 10/29/19 11:00 Resp 18 10/29/19 11:00 BP 138/82 10/29/19 11:00 Pulse Ox 97 10/29/19 11:00 10/28/19 10/29/19 10/29/19 22:59 06:59 14:59 Intake Total 1567.000 / 1750.000 183 / 6318.969 1043 / 1100 Balance 1567.000 / 1750.000 183 / 0921.181 6350 / 1100 Weight last 48 hrs Weight 214 lb 6 oz Weight 137 lb Physical Exam Narrative: EXAM NARRATIVE: HEENT: Normocephalic Eye: Sclera /conjunctiva normal Abdomen: Soft to palpation, majority of the incision is healed, though small amount of purulent fluid noted, wound was opened and packed after irrigation Neurological: Oriented to place person and time Skin: Intact, no lesions appreciated on gross exam A&P Assessment and plan (1) GI bleed: GI bleed on Eliquis, patient is hemodynamically stable. No evidence of significant active bleeding ok to have clear liquid diet today, n.p.o. after midnight. If her hemoglobin continues to trend down after transfusion then we will plan for EGD tomorrow Status: Acute Qualifiers: GI bleed type/associated pathology: anorectal hemorrhage Qualified Code(s): K62.5 - Hemorrhage of anus and rectum Code(s): K92.2 - Gastrointestinal hemorrhage, unspecified (2) S/P partial colectomy: Wound was packed after irrigation and staple was removed. 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
--- NOTE | 2019-10-29 14:30 | P.PN_ITS ---
Subjective Subjective: Interval history: Overall the patient seems to be stable. Small bloody bowel movement overnight. No chest pain or shortness of breath. No fevers or chills. No abdominal pain. Vitals/I&O/Wt Last Vital Signs Temp 98.0 F 10/29/19 11:00 Pulse 100 10/29/19 12:54 Resp 18 10/29/19 14:00 BP 138/82 10/29/19 11:00 Pulse Ox 93 10/29/19 12:54 10/28/19 10/29/19 10/29/19 22:59 06:59 14:59 Intake Total 1567.000 / 1750.000 183 / 6155.760 2565 / 1740 Balance 1567.000 / 1750.000 183 / 0724.827 7849 / 1740 Weight last 48 hrs Weight 214 lb 6 oz Weight 137 lb Physical Exam Narrative: EXAM NARRATIVE: General: No acute distress, Alert. Well nourished. Heart: Regular rate and rhythm. No murmurs, rubs or gallops. Normal capillary refill. Lungs: Clear to auscultation. No wheezes, rhonchi or rales. Abdomen: Positive bowel sounds. Non-tender, non-distended. No hepatosplenomegaly. No gaurding. Extremities: No clubbing, cyanosis, or edema. Negative Elizabeth's Data : 10/29/19 03:52 10/29/19 03:52 A&P Assessment and plan (1) GI bleed: - Hemoglobin is dropped down to 7.1 from 10.3 on admission. We will proceed with transfusion of 1 unit at this time. Overall I feel like she is stabilized though. - Continue Protonix twice daily. If hemoglobin stabilizes will probably look at discharge tomorrow -We will anticipate probably upon discharge not doing any anticoagulation since the DVT seems to have resolved. Status: Acute Qualifiers: GI bleed type/associated pathology: anorectal hemorrhage Qualified Code(s): K62.5 - Hemorrhage of anus and rectum Code(s): K92.2 - Gastrointestinal hemorrhage, unspecified (2) S/P partial colectomy: Status: Acute Code(s): Z90.49 - Acquired absence of other specified parts of digestive tract (3) Deep vein thrombosis, upper right extremity: -Resolved on ultrasound. Status: Acute Code(s): I82.621 - Acute embolism and thrombosis of deep veins of right upper extremity Attestations 2 Medical Necessity Statement*: 79-year-old female with GI bleed secondary to anticoagulation. Requiring continued inpatient IV treatments and monitoring. 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
--- NOTE | 2019-10-29 16:08 | PC.NURSE ---
Stool was a liquid and black
[2019-10-29 18:53] LABS: Basophils % 0.2 %; Eosinophils # 0.1 10^3/uL (0.0-0.8); Eosinophils % 1.1 %; Hematocrit 27.4 % (37.0-47.0); Hemoglobin 8.7 g/dL (11.5-15.3); Lymphocytes # 0.7 10^3/uL (0.8-4.8); Lymphocytes % 12.8 %; Mean Corpuscular HGB Conc 31.8 g/dL (30.0-36.0); Mean Corpuscular Hemoglobin 27.4 pg (28.0-34.0); Mean Corpuscular Volume 86.2 fL (81-99); Mean Platelet Volume 9.7 fL (7.4-10.4); Monocytes # 0.4 10^3/uL (0.2-0.9); Monocytes % 6.6 %; Neutrophils # 4.2 10^3/uL (1.8-7.7); Neutrophils % 78.7 %; Nucleated Red Blood Cells % 0 %; Platelet Count 369 10^3/cmm (130-400); Red Blood Count 3.18 10^6/uL (4.1-5.3); Red Cell Distribution Width 15.6 % (12.1-15.1); White Blood Count 5.3 10^3/uL (4.0-10.0)
--- NOTE | 2019-10-29 19:00 | PC.NURSE ---
Introduction of staff and report received, aidet.
[2019-10-29] MEDS: sodium chloride 0.9% 100 ML (19:19)
[2019-10-30] VITALS (7 sets, daily range): BP systolic 116–143; BP diastolic 62–80; PULSE 70–102; RESP 16–20; TEMP 36.5–36.9; O2SAT 90–97
[2019-10-30 05:29] LABS: Basophils % 0.2 %; Eosinophils # 0.1 10^3/uL (0.0-0.8); Eosinophils % 1.9 %; Hemoglobin 8.9 g/dL (11.5-15.3); Lymphocytes # 0.6 10^3/uL (0.8-4.8); Mean Corpuscular HGB Conc 31.8 g/dL (30.0-36.0); Mean Corpuscular Hemoglobin 27.1 pg (28.0-34.0); Mean Corpuscular Volume 85.1 fL (81-99); Mean Platelet Volume 9.6 fL (7.4-10.4); Monocytes # 0.4 10^3/uL (0.2-0.9); Monocytes % 7.5 %; Neutrophils # 4.2 10^3/uL (1.8-7.7); Neutrophils % 78.8 %; Nucleated Red Blood Cells % 0 %; Platelet Count 377 10^3/cmm (130-400); Red Blood Count 3.29 10^6/uL (4.1-5.3); Red Cell Distribution Width 15.9 % (12.1-15.1); White Blood Count 5.4 10^3/uL (4.0-10.0)
[2019-10-30 05:50] LABS: Alanine Aminotransferase 13 U/L (0-33); Albumin Level 1.8 g/dL (3.5-5.2); Alkaline Phosphatase 57 IU/L (35-105); Anion Gap 18.1 (5-19); Aspartate Amino Transferase 20 U/L (0-32); Blood Urea Nitrogen 16 mg/dL (8-23); Calcium 7.2 mg/dL (8.5-10.5); Carbon Dioxide 21 mmol/L (22-29); Chloride 107 mmol/L (98-107); Globulin 3.1 g/dL (1.3-4.6); Glucose 85 mg/dL (65-115); Potassium 3.1 mmol/L (3.5-5.1); Sodium 143 mmol/L (136-145); Total Bilirubin 0.3 mg/dL (0.15-1.2); Total Protein 4.9 g/dL (6.6-8.7)
--- NOTE | 2019-10-30 06:47 | P.DS_ITS ---
Discharge Providers Date of Admission: 10/28/19 10:36 Date of Discharge: October 30, 2019 Attending Provider at Admission: Devan Craven MD Attending Provider at Discharge: Devan Craven MD Primary Care Provider: Devan Craven MD Diagnoses at Discharge Discharge Diagnosis (1) GI bleed: Status: Acute Qualifiers: GI bleed type/associated pathology: anorectal hemorrhage Qualified Code(s): K62.5 - Hemorrhage of anus and rectum (2) S/P partial colectomy: Status: Acute Problem details: Performed on 10/19/2019 (3) Deep vein thrombosis, upper right extremity: Status: Acute Reason for Visit Reason for Visit: Reason For Visit: RECTAL BLEED Hospital Course Hospital Course: Patient was admitted to the hospital for an acute GI bleed. She was on Eliquis for DVT in her right upper extremity due to a PICC line. Patient noticed some blood in her stools and was brought to the emergency room. Initial hemoglobin was 10.3 but by the following morning had dropped down to 7.1. Patient was transfused 1 unit of blood. After the transfusion her hemoglobin was 8.7 on the evening of 10/29/2019. By the following morning which was the morning of discharge her hemoglobin actually was on up to 8.9. She had no more bright red blood in her stools. Had some occasional dark black stools but overall was improving. She felt fine throughout all this. No pain. No nausea or vomiting. No fevers or chills. Discussed doing an EGD to evaluate her stomach but patient declined. She did not want any more procedures done at this time unless absolutely necessary. We repeated an ultrasound of her arm and the DVT appears to have cleared. We will go ahead and hold the Eliquis at this time. I think with the Protonix and holding the anticoagulation she will probably do fine. Patient will be discharged today. Physical Exam Narrative: EXAM NARRATIVE: General: No acute distress, Alert. Well nourished. Heart: Regular rate and rhythm. No murmurs, rubs or gallops. Normal capillary refill. Lungs: Clear to auscultation. No wheezes, rhonchi or rales. Abdomen: Positive bowel sounds. Non-tender, non-distended. No hepatosplenomegaly. No gaurding. Extremities: No clubbing, cyanosis, or edema. Negative Elizabeth's Discharge Data Data Completed and Pending: Completed Studies During Hospitalization Category Date Time Status CT abdomen pelvis w con* [id number] Urge nt Cat Scan 10/28/19 08:00 Completed XR chest 1V juanis ble [id number] Urgent Exams 10/28/19 08:00 [place] [id number] Routin e Ultrasound 10/28/19 18:01 Completed Labs from last 24 hours 10/30/19 10/30/19 10/29/19 05:11 05:11 18:49 WBC 5.4 5.3 RBC 3.29 L 3.18 L Hgb 8.9 L 8.7 L Hct 28.0 L 27.4 L MCV 85.1 86.2 MCH 27.1 L 27.4 L MCHC 31.8 31.8 RDW 15.9 H 15.6 H Plt Count 377 369 MPV 9.6 9.7 Neut % (Auto) 78.8 78.7 Lymph % (Auto) 11.0 12.8 Fajardo % (Auto) 7.5 6.6 Eos % (Auto) 1.9 1.1 Baso % (Auto) 0.2 0.2 Neut # (Auto) 4.2 4.2 Lymph # (Auto) 0.6 L 0.7 L Fajardo # (Auto) 0.4 0.4 Eos # (Auto) 0.1 0.1 Baso # (Auto) 0.0 0.0 Nucleated RBC % (a uto) 0 0 Nucleated RBCs # 0.0 0.0 Sodium 143 Potassium 3.1 L Chloride 107 Carbon Dioxide 21 L Anion Gap 18.1 BUN 16 Creatinine 0.7 Glucose 85 Calcium 7.2 L Total Bilirubin 0.3 AST 20 ALT 13 Alkaline Phosphata se 57 Total Protein 4.9 L Albumin 1.8 L Globulin 3.1 Blood Type Antibody Screen Crossmatch 10/28/19 08:55 WBC RBC Hgb Hct MCV MCH MCHC RDW Plt Count MPV Neut % (Auto) Lymph % (Auto) Fajardo % (Auto) Eos % (Auto) Baso % (Auto) Neut # (Auto) Lymph # (Auto) Fajardo # (Auto) Eos # (Auto) Baso # (Auto) Nucleated RBC % (a uto) Nucleated RBCs # Sodium Potassium Chloride Carbon Dioxide Anion Gap BUN Creatinine Glucose Calcium Total Bilirubin AST ALT Alkaline Phosphata se Total Protein Albumin Globulin Blood Type A Positive Antibody Screen Negative Crossmatch See Detail Vitals: Last Vital Signs Temp 97.9 F 10/30/19 06:00 Pulse 96 10/30/19 06:00 Resp 17 10/30/19 06:00 BP 137/75 10/30/19 06:00 Pulse Ox 92 10/30/19 06:00 Discharge Plan Discharge Patient Disposition: Rehab Fac w Plan Readm Condition: Fair Prescriptions: New potassium chloride 10 mEq Tablet Extended Release 40 meq PO DAILY Qty: 30 RF: 0 Continued Milk of Magnesia 400 mg/5 mL Suspension 30 ml PO DAILY PRN (Reason: Constipation) RF: 0 Dulcolax (bisacodyl) 10 mg Suppository 10 mg NE DAILY PRN (Reason: Constipation) RF: 0 Lasix 20 mg Tablet 20 mg PO DAILY RF: 0 Biotene Dry Mouth Oral Rinse Mouthwash See Rx Instructions .ROUTE .COMPLEX RF: 0 docusate sodium 100 mg Capsule 100 mg PO BID Qty: 40 RF: 0 pantoprazole [Protonix] 40 mg tablet,delayed release (DR/EC) 40 mg PO BID 14 Days Qty: 28 RF: 0 Discontinued Eliquis 5 mg tablet 5 mg PO BID Qty: 60 RF: 0 Discharge Orders: Discharge Order (Routine); Ordered 10/30/19 Ordered By: Devan Craven Referrals: Devan Craven MD [Primary Care Provider] - (Follow-up with Dr. Craven after you get out of rehab.) Discharge Diet: Advance as tolerated Discharge Activity: Resume usual activity and As per PT/OT instructions Activity Restrictions/Additional Instructions: -Discharge back to rehab with the medical insurance clerk as attending physician -Resume all of the orders and medications the same with the exception of stopping Eliquis and adding potassium. -Call if increasing GI bleeding. -Anticipate to see some black tarry stools for the next few days. -Continue an aggressive bowel regimen to keep the stool soft. -Continue Protonix twice a day. 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
--- NOTE | 2019-10-30 07:17 | P.PN_ITS ---
Subjective Subjective: Interval history: Patient's hemoglobin is back to 8.9, denies any abdominal pain fevers or chills. Noted to have active bleeding Vitals/I&O/Wt Last Vital Signs Temp 97.9 F 10/30/19 06:00 Pulse 96 10/30/19 06:00 Resp 17 10/30/19 06:00 BP 137/75 10/30/19 06:00 Pulse Ox 92 10/30/19 06:00 10/29/19 10/30/19 10/30/19 22:59 06:59 14:59 Intake Total 690 / 2430 Output Total 800 / 800 Balance -110 / 1630 Weight last 48 hrs Weight 162 lb 1.6 oz Weight 214 lb 6 oz Weight 137 lb Physical Exam Narrative: EXAM NARRATIVE: Abdomen: Soft, nondistended, nontender, wound packed Data : 10/30/19 05:11 10/30/19 05:11 A&P Assessment and plan (1) S/P partial colectomy: Wound was packed after irrigation and staple was removed. 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
== END 2019-10-30 11:00 | DRG 378 ==
LOC: ER 09:47 → MEDSURG 10:36
PROVIDERS: Admitting Provider Family Medicine; Emergency Provider Family Medicine; Family Provider Family Medicine; PCP Family Medicine; Visit Provider Family Medicine
DX: K92.2 Gastrointestinal hemorrhage, unspecified (principal); I82.621 Acute embolism and thrombosis of deep veins of right upper extremity; Z90.49 Acquired absence of other specified parts of digestive tract; E78.5 Hyperlipidemia, unspecified; I10 Essential (primary) hypertension; Z96.643 Presence of artificial hip joint, bilateral
CPT/HCPCS: 12345; 36415; 36430; 71045; 74177; 80053; 83605; 83690; 85007; 85025; 85027; 85610; 85730; 86850; 86900; 93005; 93971; 96375; 99282; C9113; J3480; J7030; J7040; J7050; P9016; Q9967

== ENCOUNTER 2019-12-29 11:19 | Emergency (ER) | payer MEDICARE, SELFPAY ==
[2019-12-29 11:20] VITALS: RESP 12; O2SAT 68; BMI 15.7
--- NOTE | 2019-12-29 11:29 | PC.NURSE ---
Pt was brought in with CPR in progress, pt down time since 919 [facility] jail. Pt was asystole upon arrival and several rounds of CPR and pulse check occurred in ED with asystole for each check. TOD 1124.
--- NOTE | 2019-12-29 11:41 | ED_ITS ---
HPI - CPR General: Chief Complaint: Cardiac Arrest/CPR Stated Complaint: CODE Time Seen by Provider: 12/29/19 11:39 History of Present Illness: HPI narrative: 79-year-old female presents in cardiac arrest via EMS. They reported the incident began around 940 this morning on arrival they had began ACLS protocols and did a round of CPR and round of epi had [place] then began to transport and she was shocked once and given epi and V. fib and then shocked another time and given epi was in V. tach. She had a idioventricular rhythm bradycardia down and they began CPR again she has a supraglottic airway in place and is being ventilated the esophageal port is releasing gastric contents. PFSH ED PFSH: Social History Smoking and tobacco status: unknown if ever smoked Alcohol intake: never Lives independently: Yes Housing: House Course Vital Signs: Vital signs: Vital Signs Respiratory Rate 12 12/29/19 11:20 Pulse Oximetry 68 L 12/29/19 11:20 MDM - Cardiac Arrest/CPR MDM Narrative: Medical decision making narrative: Continued on arrival. At initial pulse check patient is in asystole with no discernible pulse. Repeat pulse check 3 minutes later still in asystole with no discernible pulse her pupils are fixed and dilated there is no auscultated will cardiac activity no palpable pulses. She has been down for an hour and 40 minutes at this point since this began. We will go ahead and stop resuscitative efforts. Time of per code sheet Discharge Plan Discharge Patient Disposition: Referrals: Devan Craven MD [Primary Care Provider] - Coding Level of Care Code ED Traffic Division Commanding Officer for [facility] Melendrez
--- NOTE | 2019-12-29 12:49 | PC.NURSE ---
Post mortem Care peformed with two Rn's at bedside. All tubes removed as pt has been cleared. home has been notified. Awaiting there arrival.
== END 2019-12-29 13:08 | disposition expired ==
PROVIDERS: Emergency Provider Family Medicine; Family Provider Family Medicine; PCP Family Medicine
DX: I46.9 Cardiac arrest, cause unspecified (principal)
CPT/HCPCS: 12345; 99283